=== PATIENT | male | born 1960 | race Caucasian/White ===

== ENCOUNTER → 2021-01-16 09:58 | Outpatient (BNVA) | payer MEDICARE, SELFPAY | PROVIDERS: PCP Family Medicine; Visit Provider Family Medicine | DX: E66.01 Morbid (severe) obesity due to excess calories (principal); M10.9 Gout, unspecified; I10 Essential (primary) hypertension; E11.628 Type 2 diabetes mellitus with other skin complications; L08.9 Local infection of the skin and subcutaneous tissue, unspecified; E11.621 Type 2 diabetes mellitus with foot ulcer; L97.509 Non-pressure chronic ulcer of other part of unspecified foot with unspecified severity; Z98.890 Other specified postprocedural states; Z87.19 Personal history of other diseases of the digestive system; Z98.84 Bariatric surgery status; M19.90 Unspecified osteoarthritis, unspecified site; E11.622 Type 2 diabetes mellitus with other skin ulcer; L97.909 Non-pressure chronic ulcer of unspecified part of unspecified lower leg with unspecified severity; E11.40 Type 2 diabetes mellitus with diabetic neuropathy, unspecified; Z79.4 Long term (current) use of insulin | CPT/HCPCS: 80053; 80061; 83036; 84443; 85025 ==

== ENCOUNTER 2021-02-28 14:54 | Outpatient (CLI) | payer MEDICARE, SELFPAY ==
--- NOTE | 2021-02-28 15:00 | USCV_ITS ---
MarciJuan Age: 61 Gender: M : 1960 Exam Date: 02/28/2021 15:13 Ordering Phys: Wali Castillo DO Technologist: Jacob Nielson Exam Location: [facility] [place] Indication: RT ARM PAIN AND SWELLING HISTORY: Upper extremity pain. PROCEDURES: Venous duplex imaging was performed in only the right upper extremity. The following venous structures were evaluated: internal jugular vein, subclavian vein, axillary vein, and brachial veins. In addition, the basilic vein, cephalic vein, radial vein, and ulnar vein. FINDINGS: No evidence of deep vein thrombosis or superficial thrombophlebitis in the right upper extremity. CONCLUSIONS No evidence of thrombus of the right upper extremity veins. Vince Genao MD (Electronically Signed) Final Date: 28 February 2021 17:06 S
== END 2021-02-28 14:55 | disposition home or self-care (01) ==
LOC: RAD 14:59
PROVIDERS: PCP Family Medicine; Visit Provider Family Medicine
DX: M79.89 Other specified soft tissue disorders (principal); L53.9 Erythematous condition, unspecified; M79.601 Pain in right arm
CPT/HCPCS: 93971

== ENCOUNTER → 2021-04-17 08:54 | Outpatient (BNVA) | payer MEDICARE, SELFPAY | PROVIDERS: PCP Family Medicine; Visit Provider Family Medicine | DX: E11.9 Type 2 diabetes mellitus without complications (principal); Z79.4 Long term (current) use of insulin | CPT/HCPCS: 83036 ==

== ENCOUNTER 2021-04-30 14:29 | Inpatient (IN) | payer MEDICARE, SELFPAY ==
[2021-04-30] VITALS (35 sets, daily range): BP systolic 105–161; BP diastolic 69–116; PULSE 77–153; RESP 13–28; TEMP 36.8–37.2; O2SAT 87–99; BMI 54.9; BMI 53.6
--- NOTE | 2021-04-30 14:55 | ED_ITS ---
HPI - Arrhythmia/Palpitations General: Chief Complaint: Arrhythmia/Palpitations Stated Complaint: AFIB, Swelling, sent by Jonathan Time Seen by Provider: 04/30/21 14:54 History of Present Illness: HPI narrative: 61-year-old male with history of diabetes and previous DVT who is no longer on anticoagulation presents with tachycardia and shortness of breath. States over the last 2 weeks he had increasing shortness of breath orthopnea and lower extremity swelling bilaterally. Denies any focal pain. Denies chest pain. Denies previous history of A. fib but today was in clinic and found to be in A. fib with RVR so sent to the ER. Review of Systems Narrative: - CONSTITUTIONAL: Denies weight loss, fever and chills. - HEENT: Denies changes in vision and hearing. - RESPIRATORY: As above - CV: As above - GI: Denies abdominal pain, nausea, vomiting and diarrhea. - : Denies dysuria and urinary frequency. - MSK: Denies myalgia and joint pain. - SKIN: Denies rash and pruritus. - NEUROLOGICAL: Denies headache, weakness, numbness and syncope. - PSYCHIATRIC: Denies suicidal ideation PFSH ED PFSH: Medical History (Updated 04/30/21 @ 14:13 by Wali Castillo DO) Arthritis Diabetic neuropathy associated with type 2 diabetes mellitus Diabetic ulcer of lower leg associated with type 2 diabetes mellitus Type 2 diabetes mellitus without complication, with long-term current use of insulin Surgical History (Updated 01/16/21 @ 09:50 by Wali Castillo DO) H/O gastric bypass H/O hernia repair Family History Mother Diabetes Myasthenia gravis Sister Diabetes Father Diabetes Dementia Social History Smoking and tobacco status: never smoked Second hand smoke exposure: No Smoking risk assessment/counseling performed?: No Alcohol intake: current Alcohol intake frequency: few times a month Alcohol type: beer Desire information about alcohol rehabilitation?: No Desire information about substance/drug rehabilitation?: No Physical Exam Narrative: EXAM NARRATIVE: - GENERAL: Alert and oriented x 3. No acute distress. Well-nourished. - EYES: EOMI. Anicteric. - HENT: Atraumatic, no C-spine tenderness. Moist mucous membranes. No scleral icterus. No cervical lymphadenopathy. - LUNGS: Bilateral crackles - CARDIOVASCULAR: Irregular tachycardia, no murmur - ABDOMEN: Soft, non-tender and non-distended. Negative CVA tenderness bilaterally, no rebound or guarding, negative Thayer sign. No palpable masses. - EXTREMITIES: +2 bilateral lower extremity edema, otherwise neurovascularly intact. - SKIN: No rashes or lesions. Warm. - NEUROLOGIC: No meningismus or focal neurological deficits. CN II-XII grossly intact. - PSYCHIATRIC: Cooperative. Appropriate mood and affect. Course Vital Signs: Vital signs: Vital Signs Temperature 98.2 F 04/30/21 14:49 Pulse Rate 116 H 04/30/21 16:30 Respiratory Rate 19 H 04/30/21 16:30 Blood Pressure 136/101 04/30/21 16:30 Pulse Oximetry 96 04/30/21 16:30 MDM - Arrhythmia/Palpitations MDM Narrative: Medical decision making narrative: 61-year-old presents due to shortness of breath. Has lower extremity swelling. Also found to have new onset A. fib with RVR. EKG does not reveal any acute ischemic change. High- sensitivity troponin mildly elevated to 24 but repeat is not changing. Failed to improve with 2 boluses of diltiazem so started on diltiazem drip with improvement in heart rate. Also has elevated BNP and signs of volume overload. Lasix provided. D-dimer is elevated but due to body weight patient would not fit in CT scan or VQ scan or. His lower extremity swelling is bilateral and he denies lower extremity pain. He also denies any chest pain. Clinical picture is more consistent with CHF than PE. Discussed with hospitalist and at this time do not believe it would be appropriate to transfer patient to a facility with bariatric CT scanner. Remainder of lab work and imaging reviewed. Discussed with hospitalist and they agreed patient would benefit from admission. Patient admitted in stable condition. Further evaluation management per hospitalist team. Lab Data: Labs: Lab Results 04/30/21 04/30/21 04/30/21 15:35 15:35 15:35 WBC 5.7 10^3/uL 10^3/ uL (4.0-10.0) RBC 4.36 10^6/uL 10^6 /uL (4.1-5.3) Hgb 9.4 g/dL L g/dL (11.7-16.6) Hct 33.1 % L % (42.0-52.0) MCV 75.9 fl L fl (80-94) MCH 21.6 pg L pg (28.0-34.0) MCHC 28.4 g/dL L g/dL (30.0-36.0) RDW 15.7 % H % (12.1-15.1) Plt Count 251 10^3/cmm 10^3 /cmm (130-400) MPV 10.1 fL fL (7.4-10.4) Neut % (Auto) 58.9 % % Lymph % (Auto) 31.2 % % [place] % (Auto) 6.6 % % Eos % (Auto) 1.6 % % Baso % (Auto) 1.4 % % Neut # (Auto) 3.37 10^3/uL 10^3 /uL (1.8-7.7) Lymph # (Auto) 1.8 10^3/uL 10^3/ uL (0.8-4.8) [place] # (Auto) 0.4 10^3/uL 10^3/ uL (0.2-0.9) Eos # (Auto) 0.1 10^3/uL 10^3/ uL (0.0-0.8) Baso # (Auto) 0.1 10^3/uL 10^3/ uL (0.0-0.1) Nucleated RBC % (a uto) 0 % % Nucleated RBCs # 0.0 /100WBC /100W BC PT 13.60 SECONDS SEC ONDS (12.1-14.9) INR 1.01 (0.8-1.2) APTT 25.4 SECONDS SECO NDS (23.9-36.7) D-Dimer 1.23 ug/mIFEU H u g/mIFEU (0-0.59) Sodium 137 mmol/L mmol/L (136-145) Potassium 4.5 mmol/L mmol/L (3.5-5.1) Chloride 103 mmol/L mmol/L (98-107) Carbon Dioxide 22 mmol/L mmol/L (22-29) Anion Gap 16.5 (5-19) BUN 21 mg/dL mg/dL (8-23) Creatinine 1.3 mg/dL H mg/dL (0.7-1.2) GFR Calculation 55.9 mL/min L mL/ min (90-130) Glucose 207 mg/dL H mg/dL (65-115) Calculated Osmolal ity 293 mOsm/kg mOsm/ kg (285-295) Calcium 8.1 mg/dL L mg/dL (8.5-10.5) Total Bilirubin 0.2 mg/dL mg/dL (0.15-1.2) AST 21 U/L U/L (0-40) ALT 28 U/L U/L (0-41) Alkaline Phosphata se 110 IU/L IU/L (40-130) Troponin T Baselin e Troponin T 120 Min gloria Delta Troponin T NT-Pro-B Natriuret Pep 2568 pg/mL H pg/m L (0-125) Total Protein 5.8 g/dL L g/dL (6.6-8.7) Albumin 3.1 g/dL L g/dL (3.5-5.2) Globulin 2.7 g/dL g/dL (1.3-4.6) TSH 1.52 uIU/mL uIU/m L (0.27-4.20) Free T4 1.44 ng/dL ng/dL (0.82-1.77) 04/30/21 04/30/21 15:35 17:33 WBC RBC Hgb Hct MCV MCH MCHC RDW Plt Count MPV Neut % (Auto) Lymph % (Auto) [place] % (Auto) Eos % (Auto) Baso % (Auto) Neut # (Auto) Lymph # (Auto) [place] # (Auto) Eos # (Auto) Baso # (Auto) Nucleated RBC % (a uto) Nucleated RBCs # PT INR APTT D-Dimer Sodium Potassium Chloride Carbon Dioxide Anion Gap BUN Creatinine GFR Calculation Glucose Calculated Osmolal ity Calcium Total Bilirubin AST ALT Alkaline Phosphata se Troponin T Baselin e 24 ng/L H ng/L (0-15) Troponin T 120 Min gloria 24.21 ng/L H ng/L (0-15) Delta Troponin T 0.21 ABS# ABS# (0-10) NT-Pro-B Natriuret Pep Total Protein Albumin Globulin TSH Free T4 EKG Data^: EKG 1: Other EKG comments: Chest X-Ray 04/30/21 14:59 IMPRESSION: Mild cardiomegaly and calcified aorta. A. fib with RVR at a rate of 137, no sign of acute ischemia or other acute abnormality. Critical Care Time Critical Care Time: Critical Care Time: Yes Total Critical Care Time: 45 Attestation: This case had a high probability of a clinically significant, sudden, or life threatening deterioration of this patient's condition which required my full and direct attention, intervention and personal management. Discharge Plan Discharge Prescriptions: No Action amoxicillin-pot clavulanate [Augmentin] 875-125 mg tablet 1 tab PO BID Qty: 14 RF: 0 acetaminophen 500 mg Tablet 1,500 - 2,000 mg PO Q4H PRN (Reason: Pain) RF: 0 allopurinol 300 mg tablet 300 mg PO QAM RF: 0 Lantus Solostar U-100 Insulin 100 unit/mL (3 mL) insulin pen 15 unit SUBCUT BID RF: 0 Coding Level of Care Code ED Rn Gyn for Wing Anali
--- NOTE | 2021-04-30 14:59 | XR_ITS ---
WS: [id number] PORTABLE CHEST HISTORY: sob COMPARISON: None available. Lungs are clear and well expanded. No pleural effusion or pneumothorax. Cardiac size: Mildly enlarged cardiac silhouette. Mediastinum/Aorta: Mildly prominent RIGHT hilum. Suspect this is probably pulmonary artery which is s lightly prominent. No osseous abnormality seen. XR/XR chest 1V portable [id number] IMPRESSION: Mild cardiomegaly and calcified aorta.
[2021-04-30] MEDS: FUROsemide 10 mg/mL SDV 4mL 40 MG IVP (15:00)
--- NOTE | 2021-04-30 15:00 | ECG_ITS ---
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 Measurements Intervals Dennis Rate: 122 P: DE: QRS: -43 QRSD: 111 T: 89 QT: 319 QTc: 456 Interpretive Statements ATRIAL FIBRILLATION WITH RAPID VENTRICULAR RESPONSE LEFT AXIS DEVIATION [QRS AXIS < -30] ANTEROSEPTAL MYOCARDIAL INFARCTION , PROBABLY OLD [40+ ms Q WAVE IN V1-V4] Compared to ECG 04/30/2021 14:58:53 No significant changes Electronically Signed On 04-30-2021 20:14:47 TECHNOLOGY RISK INTERN by Roman Cason M.D. [id number]
[2021-04-30 15:44] LABS: Basophils # 0.1 10^3/uL (0.0-0.1); Basophils % 1.4 %; Eosinophils # 0.1 10^3/uL (0.0-0.8); Eosinophils % 1.6 %; Hematocrit 33.1 % (42.0-52.0); Hemoglobin 9.4 g/dL (11.7-16.6); Lymphocytes # 1.8 10^3/uL (0.8-4.8); Lymphocytes % 31.2 %; Mean Corpuscular HGB Conc 28.4 g/dL (30.0-36.0); Mean Corpuscular Hemoglobin 21.6 pg (28.0-34.0); Mean Corpuscular Volume 75.9 fl (80-94); Mean Platelet Volume 10.1 fL (7.4-10.4); Monocytes # 0.4 10^3/uL (0.2-0.9); Monocytes % 6.6 %; Neutrophils # 3.37 10^3/uL (1.8-7.7); Neutrophils % 58.9 %; Nucleated Red Blood Cells % 0 %; Platelet Count 251 10^3/cmm (130-400); Red Blood Count 4.36 10^6/uL (4.1-5.3); Red Cell Distribution Width 15.7 % (12.1-15.1); White Blood Count 5.7 10^3/uL (4.0-10.0)
[2021-04-30 15:57] LABS: INR 1.01 (0.8-1.2)
[2021-04-30 15:58] LABS: Partial Thromboplastin Time 25.4 SECONDS (23.9-36.7)
[2021-04-30 16:00] LABS: D Dimer 1.23 ug/mIFEU (0-0.59)
--- NOTE | 2021-04-30 16:08 | PC.PHAR ---
pt states he takes care of his own medications-pt states the dr told him not to use the novolog flexpen bhupinder has rx on hold-rx filled on 04/27/21 for lantus 10 units bid pt states it was increased to 15 units bid pt states today he used 30 units-notes are made in the pharmacy comments
[2021-04-30 16:09] LABS: Troponin(5th) Baseline 24 ng/L (0-15)
[2021-04-30 16:19] LABS: Alanine Aminotransferase 28 U/L (0-41); Albumin Level 3.1 g/dL (3.5-5.2); Alkaline Phosphatase 110 IU/L (40-130); Anion Gap 16.5 (5-19); Aspartate Amino Transferase 21 U/L (0-40); Blood Urea Nitrogen 21 mg/dL (8-23); Calcium 8.1 mg/dL (8.5-10.5); Carbon Dioxide 22 mmol/L (22-29); Chloride 103 mmol/L (98-107); Free T4 Free Thyroxine 1.44 ng/dL (0.82-1.77); Globulin 2.7 g/dL (1.3-4.6); Glomerular Filtration Rate 55.9 mL/min (90-130); Glucose 207 mg/dL (65-115); NT Pro B Type Natriuretic Pept 2568 pg/mL (0-125); Osmolality Calculated 293 mOsm/kg (285-295); Potassium 4.5 mmol/L (3.5-5.1); Sodium 137 mmol/L (136-145); Thyroid Stimulating Hormone 1.52 uIU/mL (0.27-4.20); Total Bilirubin 0.2 mg/dL (0.15-1.2); Total Protein 5.8 g/dL (6.6-8.7)
--- NOTE | 2021-04-30 17:00 | ECG_ITS ---
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 Measurements Intervals [place] Rate: 137 P: IN: QRS: -46 QRSD: 109 T: 89 QT: 296 QTc: 448 Interpretive Statements ATRIAL FIBRILLATION WITH RAPID VENTRICULAR RESPONSE LEFT AXIS DEVIATION [QRS AXIS < -30] POSSIBLE ANTERIOR MYOCARDIAL INFARCTION , OF INDETERMINATE AGE [30 ms Q WAVE IN V3/V4, OR R < 0.2 mV IN V4] No previous ECG available for comparison Electronically Signed On 04-30-2021 16:45:59 ORTHOPEDIC RN by Roman Cason M.D. [id number]
[2021-04-30 18:18] LABS: Troponin 5 2HR 24.21 ng/L (0-15); Troponin 5 2HR Delta 0.21 ABS# (0-10)
--- NOTE | 2021-04-30 19:43 | P.HP_ITS ---
Providers/Chief Complaint Primary Care Provider: Wali Castillo DO Chief Complaint: AFIB, Swelling, sent by Jonathan History of Present Illness Juan Covarrubias is a 61 year old male with past medical history of obesity, diabetes, osteoarthritis, DVT x2 who is presenting with complaints of increased lower extremity swelling and shortness of breath. The patient has chronic swelling in the legs. However, he reports that it got worse about 2 weeks ago. Reports associated redness. Denies pain or wounds. The shortness of breath started about 3 to 4 days ago and got worse. It is mild to moderate in intensity, constant, but worsens with activities. He uses 3 pillows to sleep. No PND. He reports some substernal chest discomfort but no pain. Denies any palpitations. [place] a little dizzy earlier but it has resolved. Denies any prior history of congestive heart failure or heart attacks. On one occasion he was told that he had irregular heartbeats. He has history of DVT in the past for which he took warfarin for short period of time. Denies any bleeding problems. He denies any history of strokes. No fever or chills. No cough. No diarrhea. He denies similar problems in the past. Review of Systems General: Reports: 10 or more systems reviewed and unremarkable except in HPI and below Medications/Allergies Home Medications Medication Instructions Recorded Confirmed Last Taken Type amoxicillin 875 mg-potassium 1 tab PO BID #14 tab 04/24/21 04/30/21 04/30/21 06:00 Rx clavulanate 125 mg tablet acetaminophen 1,500 - 2,000 mg PO Q4H PRN 04/30/21 04/30/21 04/30/21 02:00 History allopurinol 300 mg PO QAM 04/30/21 04/30/21 04/30/21 History insulin glargine [Lantus Solostar 15 unit SUBCUT BID 04/30/21 04/30/21 04/30/21 06:00 History U-100 Insulin] 30 units Allergies Allergy/AdvReac Type Severity Reaction Status Date / Time morphine Allergy ADR-Vomitin Verified 04/17/21 08:08 g Opioids - Morphine Analogues Allergy Unknown Verified 04/30/21 16:12 Opioids-Meperidine and Allergy Unknown Verified 04/30/21 16:12 Related Opioids-Methadone and Related Allergy Unknown Verified 04/30/21 16:12 peanut Allergy Unknown Verified 04/17/21 08:08 PFSH Acute PFSH: Medical History (Updated 04/30/21 @ 19:49 by Christopher Bentley) Arthritis Diabetic neuropathy associated with type 2 diabetes mellitus Diabetic ulcer of lower leg associated with type 2 diabetes mellitus Type 2 diabetes mellitus without complication, with long-term current use of insulin Surgical History (Updated 01/16/21 @ 09:50 by Wali Castillo DO) H/O gastric bypass H/O hernia repair Family History Mother Diabetes Myasthenia gravis Sister Diabetes Father Diabetes Dementia Social History Smoking and tobacco status: never smoked Second hand smoke exposure: No Smoking risk assessment/counseling performed?: No Alcohol intake: current Alcohol intake frequency: few times a month Alcohol type: beer Desire information about alcohol rehabilitation?: No Desire information about substance/drug rehabilitation?: No Vitals/I&O/Wt Last Vital Signs Temp 98.2 F 04/30/21 14:49 Pulse 116 H 04/30/21 16:30 Resp 19 H 04/30/21 16:30 BP 136/101 04/30/21 16:30 Pulse Ox 96 04/30/21 16:30 04/30/21 04/30/21 04/30/21 06:59 14:59 22:59 Intake Total 3.167 / 3.167 Balance 3.167 / 3.167 Weight last 48 hrs Weight 221.353 kg Physical Exam Narrative: EXAM NARRATIVE: Currently the patient is awake alert and oriented. No acute distress. Mood and affect are appropriate. Responses are adequate. Skin is warm and dry. Muscle commands Neck supple. No JVD Lungs are clear bilaterally. No wheeze or crackles. No respiratory distress Heart S1, S2, irregularly irregular. Abdomen is soft, nontender, bowel sounds are present Extremities 3+ pitting edema and chronic venous stasis changes. No calf tenderness or peripheral cyanosis. No focal deficits. Normal speech. Data : 04/30/21 15:35 04/30/21 15:35 Other Labs: Laboratory Results WBC 5.7 10^3/uL (4.0-10.0) 04/30/21 15:35 RBC 4.36 10^6/uL (4.1-5.3) 04/30/21 15:35 Hgb 9.4 g/dL (11.7-16.6) L 04/30/21 15:35 Hct 33.1 % (42.0-52.0) L 04/30/21 15:35 MCV 75.9 fl (80-94) L 04/30/21 15:35 MCH 21.6 pg (28.0-34.0) L 04/30/21 15:35 MCHC 28.4 g/dL (30.0-36.0) L 04/30/21 15:35 RDW 15.7 % (12.1-15.1) H 04/30/21 15:35 Plt Count 251 10^3/cmm (130-400) 04/30/21 15:35 MPV 10.1 fL (7.4-10.4) 04/30/21 15:35 Neut % (Auto) 58.9 % 04/30/21 15:35 Lymph % (Auto) 31.2 % 04/30/21 15:35 [place] % (Auto) 6.6 % 04/30/21 15:35 Eos % (Auto) 1.6 % 04/30/21 15:35 Baso % (Auto) 1.4 % 04/30/21 15:35 Neut # (Auto) 3.37 10^3/uL (1.8-7.7) 04/30/21 15:35 Lymph # (Auto) 1.8 10^3/uL (0.8-4.8) 04/30/21 15:35 [place] # (Auto) 0.4 10^3/uL (0.2-0.9) 04/30/21 15:35 Eos # (Auto) 0.1 10^3/uL (0.0-0.8) 04/30/21 15:35 Baso # (Auto) 0.1 10^3/uL (0.0-0.1) 04/30/21 15:35 Nucleated RBC % (auto) 0 % 04/30/21 15:35 Nucleated RBCs # 0.0 /100WBC 04/30/21 15:35 PT 13.60 SECONDS (12.1-14.9) 11/08/21 15:35 INR 1.01 (0.8-1.2) 04/30/21 15:35 APTT 25.4 SECONDS (23.9-36.7) 04/30/21 15:35 D-Dimer 1.23 ug/mIFEU (0-0.59) H 04/30/21 15:35 Sodium 137 mmol/L (136-145) 04/30/21 15:35 Potassium 4.5 mmol/L (3.5-5.1) 04/30/21 15:35 Chloride 103 mmol/L (98-107) 04/30/21 15:35 Carbon Dioxide 22 mmol/L (22-29) 04/30/21 15:35 Anion Gap 16.5 (5-19) 04/30/21 15:35 BUN 21 mg/dL (8-23) 04/30/21 15:35 Creatinine 1.3 mg/dL (0.7-1.2) H 04/30/21 15:35 GFR Calculation 55.9 mL/min (90-130) L 04/30/21 15:35 Glucose 207 mg/dL (65-115) H 04/30/21 15:35 Calculated Osmolality 293 mOsm/kg (285-295) 04/30/21 15:35 Calcium 8.1 mg/dL (8.5-10.5) L 04/30/21 15:35 Total Bilirubin 0.2 mg/dL (0.15-1.2) 04/30/21 15:35 AST 21 U/L (0-40) 04/30/21 15:35 ALT 28 U/L (0-41) 04/30/21 15:35 Alkaline Phosphatase 110 IU/L (40-130) 04/30/21 15:35 Troponin T Baseline 24 ng/L (0-15) H 04/30/21 15:35 Troponin T 120 Minute 24.21 ng/L (0-15) H 04/30/21 17:33 Delta Troponin T 0.21 ABS# (0-10) 04/30/21 17:33 NT-Pro-B Natriuret Pep 2568 pg/mL (0-125) H 04/30/21 15:35 Total Protein 5.8 g/dL (6.6-8.7) L 04/30/21 15:35 Albumin 3.1 g/dL (3.5-5.2) L 04/30/21 15:35 Globulin 2.7 g/dL (1.3-4.6) 04/30/21 15:35 TSH 1.52 uIU/mL (0.27-4.20) 04/30/21 15:35 Free T4 1.44 ng/dL (0.82-1.77) 04/30/21 15:35 Impressions Chest X-Ray 04/30/21 14:59 IMPRESSION: Mild cardiomegaly and calcified aorta. A&P Assessment and plan (1) Atrial fibrillation with RVR: Status: Acute (2) CHF (congestive heart failure): Status: Acute (3) Type 2 diabetes mellitus without complication, with long-term current use of insulin: Status: Acute (4) Anemia: Status: Acute Additional A&P Information 61-year-old male with past medical history of diabetes, obesity, DVT who is presenting with complaints of shortness of breath, chest discomfort, peripheral swelling. A. fib with RVR. He received 2 boluses of diltiazem and currently on diltiazem drip. Heart rate has improved. He will go to the stepdown unit. Will continue diltiazem drip. We will start him on Eliquis for stroke prophylaxis. His chads 2 score can be as high as 4. It might change after echo evaluation. This was discussed with the patient and he agreed with the plan of care. Suspected congestive heart failure. Elevated BNP shortness of breath and swelling. Will order to the echo. We will start him on furosemide. Mild acute kidney injury could be secondary to #1. Will monitor. Will avoid nephrotoxic medications. Anemia. Could be dilutional due to fluid retention or secondary to chronic disease. We will continue monitoring. No evidence of active bleeding. Additional testing might be needed. History of DVT. Swollen and hyperemic lower extremities. Elevated D-dimer. Will order Doppler ultrasound of the lower extremities. He will be covered with Eliquis. Hypertension. The patient has borderline hypertension. Currently hypotensive. Will order as needed labetalol. Diabetes. We will continue his home Lantus. We will add insulin sliding scale. CODE STATUS. He wants to be full code. The plan of care was discussed with the patient. He verbalized understanding and agreement Attestations Medical Necessity Statement*: I expect that the patient will spend more than 2 midnights in the hospital considering his current findings and need for ever tional testing and management. Coding Level of Care Code Acute Entertainment Director for Bebe Briones Diagnoses Atrial fibrillation with RVR I48.91 CHF (congestive heart failure) I50.9 Type 2 diabetes mellitus without complication, with long-term current use of insulin E11.9; Z79.4 Anemia D64.9
[2021-04-30 20:27] LABS: SARS Covid-2 Antigen Negative (Negative)
--- NOTE | 2021-04-30 21:18 | PC.NURSE ---
urine output 2400 ml
[2021-04-30] MEDS: metoprolol tartrate 1 mg/1 mL SDV 5 mL 5 MG IVP (21:57)
[2021-04-30 22:08] LABS: Troponin 5 6HR 24.59 ng/L (0-15); Troponin 5 6HR Delta 0.59 ng/L (0-12)
[2021-04-30] MEDS: insulin lispro 100 unit/1 mL SUBCUT (22:17)
[2021-04-30 22:19] LABS: Glucose Point of Care 182 mg/dL (70-110)
[2021-05-01] VITALS (98 sets, daily range): BP systolic 109–174; BP diastolic 51–122; PULSE 79–130; RESP 12–26; TEMP 36.7–37.3; O2SAT 89–98
[2021-05-01] MEDS: FUROsemide 10 mg/mL SDV 4mL 40 MG IVP ×2 (03:51→15:06)
[2021-05-01 05:17] LABS: Basophils # 0.1 10^3/uL (0.0-0.1); Eosinophils # 0.1 10^3/uL (0.0-0.8); Eosinophils % 1.4 %; Hematocrit 31.8 % (42.0-52.0); Hemoglobin 9.1 g/dL (11.7-16.6); Lymphocytes # 2.1 10^3/uL (0.8-4.8); Lymphocytes % 41.8 %; Mean Corpuscular HGB Conc 28.6 g/dL (30.0-36.0); Mean Corpuscular Hemoglobin 21.1 pg (28.0-34.0); Mean Corpuscular Volume 73.8 fl (80-94); Mean Platelet Volume 10.2 fL (7.4-10.4); Monocytes # 0.5 10^3/uL (0.2-0.9); Monocytes % 9.2 %; Neutrophils # 2.32 10^3/uL (1.8-7.7); Neutrophils % 46.4 %; Nucleated Red Blood Cells % 0 %; Platelet Count 244 10^3/cmm (130-400); Red Blood Count 4.31 10^6/uL (4.1-5.3); Red Cell Distribution Width 15.7 % (12.1-15.1)
[2021-05-01 05:40] LABS: Anion Gap 14.8 (5-19); Blood Urea Nitrogen 20 mg/dL (8-23); Calcium 8.4 mg/dL (8.5-10.5); Carbon Dioxide 26 mmol/L (22-29); Chloride 104 mmol/L (98-107); Glomerular Filtration Rate 75.7 mL/min (90-130); Glucose 97 mg/dL (65-115); Osmolality Calculated 295 mOsm/kg (285-295); Phosphorus 3.8 mg/dL (2.5-4.5); Potassium 3.8 mmol/L (3.5-5.1); Sodium 141 mmol/L (136-145)
[2021-05-01 05:51] LABS: Cholesterol 124 mg/dL (0-200); HDL Cholesterol 54 mg/dL (60-100); LDL Cholesterol Calculated 55 mg/dL (50-129); LDL HDL Ratio 1.02 RATIO (0.00-3.22); NT Pro B Type Natriuretic Pept 2346 pg/mL (0-125); Triglycerides 77 mg/dL (0-150)
[2021-05-01 06:23] LABS: Estmated Average Glucose 220; Hemoglobin A1C 9.3 % (4.0-6.0)
[2021-05-01 07:43] LABS: Glucose Point of Care 100 mg/dL (70-110)
[2021-05-01] MEDS: dilTIAZem 30 mg Tablet PO ×2 (07:43→09:06)
--- NOTE | 2021-05-01 08:14 | PC.NURSE ---
recd. a/o. breakfast in. refy
[2021-05-01] MEDS: apixaban 5 mg Tablet PO ×2 (09:06→19:06)
[2021-05-01] MEDS: aspirin 81 mg EC Tablet PO (09:06)
[2021-05-01] MEDS: insulin glargine 100 units/1 mL 15 UNIT SUBCUT ×2 (09:07→19:06)
--- NOTE | 2021-05-01 11:05 | PC.NURSE ---
pt. refused p.t. keeps saying, dont worry about it i am tajik
--- NOTE | 2021-05-01 13:19 | PM.PN ---
Subjective Subjective: Interval history: Seen and examined patient has new onset of A. fib RVR with CHF exacerbation, new onset CHF, because of his BMI we cannot get CTA or VQ scan hence started on Eliquis secondary to high D-dimer patient does not smoke or drink alcohol, has recently moved from [place] about 6 months ago Cardizem drip was running at 10 asked nurse to decrease it to 5 and turned off at 10 AM at 7 AM I have started 60 mg of Cardizem p.o. every 6hr along metoprolol Ej Fraction,50-55% :Acute Superficial thrombophlebitis right GSV from ankle to Jam's canal. No DVT , bilateral. Vitals/I&O/Wt Last Vital Signs Temp 98.1 F 05/01/21 09:15 Pulse 104 H 05/01/21 09:15 Resp 21 H 05/01/21 09:15 BP 136/77 05/01/21 09:15 Pulse Ox 97 05/01/21 09:15 04/30/21 05/01/21 05/01/21 22:59 06:59 14:59 Intake Total 9.167 / 9.167 365.833 / 375.000 206.5 / 206.5 Output Total 350 / 350 2325 / 2675 1250 / 1250 Balance -340.833 / -340.833 -1959.167 / -2300.000 -1043.5 / -1043.5 Weight last 48 hrs Weight 215.955 kg Weight 221.353 kg Physical Exam Narrative: EXAM NARRATIVE: A. fib RVR heart rate between 95-1 10 Patient is not expensing chest pain or shortness of breath CHF exacerbation Extremity edema with venous is dermatitis No active cellulitis Right knee surgery score Abdomen distended with obesity No signs of tenderness or peritonitis EOMI, PERRLA nonfocal neuro exam Saturating well on room air No audible stridor or wheezing Data : 05/01/21 04:24 05/01/21 04:24 A&P Assessment and plan (1) Anemia: Status: Acute (2) CHF (congestive heart failure): Status: Acute (3) Orthopnea: Status: Acute (4) Atrial fibrillation with RVR: Status: Acute (5) Localized swelling of right upper extremity: Status: Acute (6) Dependent edema: Status: Acute (7) Type 2 diabetes mellitus without complication, with long-term current use of insulin: Status: Acute (8) Diabetic neuropathy associated with type 2 diabetes mellitus: Status: Acute (9) Morbid obesity: Status: Acute (10) Peripheral vascular disease due to secondary diabetes: Status: Acute (11) White coat syndrome with hypertension: Status: Acute (12) Type II diabetes mellitus with foot ulcer: Status: Acute Additional A&P Information Acute CHF exacerbation secondary to tachyarrhythmia Preserved ejection fraction heart failure exacerbation A. fib RVR TSH normal Potassium magnesium normal This most likely related to underlying sleep apnea he will need outpatient sleep study and wound care clinic for diabetic ulcer He does have venous stasis dermatitis No active signs of cellulitis For A. fib RVR started Cardizem 60 mg every 6 hours Cardizem drip turned off at 10 AM Started Eliquis for [id number] of 4 Full code Consistent carb diet Eliquis will suffice DVT prophylaxis Superficial thrombophlebitis Attestations Medical Necessity Statement*: DC TOMORROW Time Spent in Patient Care: less than 15 minutes Coding Level of Care Code Acute Medicine And Health Service Manager for Chg Fwd Diagnoses Anemia D64.9 CHF (congestive heart failure) I50.9 Orthopnea R06.01 Atrial fibrillation with RVR I48.91 Localized swelling of right upper extremity R22.31 Dependent edema R60.9 Type 2 diabetes mellitus without complication, with long-term current use of insulin E11.9; Z79.4 Diabetic neuropathy associated with type 2 diabetes mellitus E11.40 Morbid obesity E66.01 Peripheral vascular disease due to secondary diabetes E13.51 White coat syndrome with hypertension I10 Type II diabetes mellitus with foot ulcer E11.621; L97.509
[2021-05-01] MEDS: dilTIAZem 60 mg Tablet PO ×2 (13:55→19:52)
--- NOTE | 2021-05-01 14:03 | PC.NURSE ---
resting quietly watching t.v. h.r up to 120s. will monitor
--- NOTE | 2021-05-01 16:26 | PC.NURSE ---
heart rate increased prior to lasix.
[2021-05-01 17:22] LABS: Glucose Point of Care 93 mg/dL (70-110)
[2021-05-01 17:25] LABS: Glucose Point of Care 118 mg/dL (70-110)
[2021-05-01 19:49] LABS: Glucose Point of Care 118 mg/dL (70-110)
[2021-05-01 20:53] LABS: Glucose Point of Care 113 mg/dL (70-110)
--- NOTE | 2021-05-01 21:31 | USCV_ITS ---
Juan Covarrubias Age: 61 Gender: M : 1960 Exam Date: 05/01/2021 05:31 Ordering Phys: Christopher Bentley MD Technologist: Naa An Exam Location: [facility] [place] Indication: CHF BP: 126 / 89 HR: 102 Rhythm: Atrial fibrillation Technical Quality: Adequate MEASUREMENTS (Male / Female) Normal Values 2D ECHO LV Diastolic Diameter PLAX 4.6 cm 4.2 - 5.9 / 3.9 - 5.3 cm LV Systolic Diameter PLAX 3.2 cm LV Chamber Size 4.5 cm IVS Diastolic Thickness 1.1 cm 0.6 - 1.0 / 0.6 - 0.9 cm IVS Systolic Thickness 1.9 cm LVPW Diastolic Thickness 1.7 cm 0.6 - 1.0 / 0.6 - 0.9 cm LVPW Systolic Thickness 2.0 cm RV Chamber Size 4.2 cm LVOT Diameter 2.0 cm LV Ejection Fraction 2D Teich 57.9 % LV Ejection Fraction MOD 2C 73.6 % LV Ejection Fraction 2C AL 73.6 % LA Diameter 4.0 cm LA Width 4.2 cm LA Height 5.2 cm RA Width 4.2 cm RA Height 5.4 cm Aorta at Sinotubular Diameter 3.3 cm M-MODE Aortic Annulus Diameter 4.3 cm LA Ao Ratio MM 0.9 MV E Point Septal Separation 0.8 cm DOPPLER AV Peak Velocity 157.0 cm/s LVOT Peak Velocity 77.0 cm/s AV Area Cont Eq vti 1.6 cm squared AV Area Cont Eq pk 1.5 cm squared MV Area PHT 5.0 cm squared MV E' Velocity 79.0 cm/s Mitral E to MV E' Ratio 17.1 Mitral E to LV E' Lateral Ratio 17.1 Mitral E to LV E' Septal Ratio 17.1 TR Peak Velocity 230.0 cm/s TR Peak Gradient 21.2 mmHg TR Mean Velocity 174.4 cm/s TR Mean Gradient 13.8 mmHg TR Velocity Time Integral 58.1 cm TV Peak E Velocity 77.0 cm/s Right Atrial Pressure 5.0 mmHg Pulmonary Artery Systolic Pressu 26.2 mmHg PV Peak Velocity 73.0 cm/s RV Acceleration Time 0.1 s RV Ejection Time 0.3 s RV AcT/ET 0.4 FINDINGS Left Ventricle Relative hypokinesia of the septum. Normal LV size. LV ejection fraction around 50 to 55%( visual). Right Ventricle The right ventricle is normal in size and function. Right Atrium The right atrium is normal in size. Left Atrium The left atrium is normal in size. Mitral Valve Thickened mitral valve. Aortic Valve No gross abnormalities noted Tricuspid Valve No gross abnormalities noted Pulmonic Valve No gross abnormalities noted.trace pulmonary valve regurgitation. Pericardium Normal pericardium without effusion. Aorta Normal ascending aorta dimension. CONCLUSIONS Normal LV size. LV ejection fraction around 50 to 55%( visual). Wall motion of normality as mentioned above. Trace pulmonary valve regurgitation. Thickened mitral valve. There is no pericardial effusion. Technically difficult study because of the poor ultrasonic window. Dr Kira Vera MD [facility] (Electronically Signed) Final Date: 01 May 2021 07:41 S
--- NOTE | 2021-05-01 21:31 | USCV_ITS ---
Juan Covarrubias Age: 61 Gender: M : 1960 Exam Date: 05/01/2021 05:55 Ordering Phys: Christopher Bentley MD Technologist: Naa An [place] [facility] [place]: VERY SWOLLEN LEGS. ONSET OF CHF HISTORY: History of DVT bilateral pop veins. Bilateral leg swelling. PROCEDURES: Comparison: none available. The venous duplex Doppler examination of both lower extremities was performed in the standard fashion. The following venous structures were evaluated: common femoral vein, profunda vein, proximal portion of the greater saphenous vein, superficial femoral vein, and the popliteal vein. In addition, the posterior tibial and peroneal trunk were evaluated. Serial compression, augmentation maneuvers, and spectral Doppler flow evaluation were performed. FINDINGS: RT GSV proximal has debris. RT GSV HC, below knee and at ankle have clot. RT deep veins grossly neg. Lt deep veins and superfical appear free of thrombus. TDS CONCLUSIONS Technically difficult exam. Acute Superficial thrombophlebitis right GSV from ankle to Jam's canal. No DVT , bilateral. Dr. Leanna Castillo DO (Electronically Signed) Final Date: 01 May 2021 07:27 S
[2021-05-02] VITALS (54 sets, daily range): BP systolic 118–174; BP diastolic 66–112; PULSE 80–143; RESP 10–34; TEMP 36.6–37.1; O2SAT 90–97
[2021-05-02] MEDS: dilTIAZem 60 mg Tablet PO ×3 (02:14→13:07)
[2021-05-02] MEDS: FUROsemide 10 mg/mL SDV 4mL 40 MG IVP (04:36)
[2021-05-02 06:56] LABS: Anion Gap 11.8 (5-19); Blood Urea Nitrogen 14 mg/dL (8-23); Calcium 8.2 mg/dL (8.5-10.5); Carbon Dioxide 28 mmol/L (22-29); Chloride 102 mmol/L (98-107); Glucose 85 mg/dL (65-115); Osmolality Calculated 286 mOsm/kg (285-295); Potassium 3.8 mmol/L (3.5-5.1); Sodium 138 mmol/L (136-145)
[2021-05-02 07:32] LABS: Glucose Point of Care 87 mg/dL (70-110)
[2021-05-02] MEDS: aspirin 81 mg EC Tablet PO (08:09)
[2021-05-02] MEDS: apixaban 5 mg Tablet PO (08:09)
[2021-05-02] MEDS: insulin glargine 100 units/1 mL 15 UNIT SUBCUT (08:11)
--- NOTE | 2021-05-02 10:30 | PC.CHAP ---
Pastoral Care Encounter/Spiritual Assessment Type of Contact [] Declined voice systems engineer visit [] Patient/Family/Request visit [] Outpatient visit [] Follow-up visit [] Physician referral [] Code/Alert [x] Routine visit [] Staff referral [] Actively dying [] Patient sleeping [] Family support [] [] Out of room [] Palliative care [] [] Receiving care in room [] Pre-surgical visit [] Trauma [] Long length of stay [x] ICU visit [] Other: Relational/Emotional Strength [] Patient feels connected with others/family/visitors/staff [] Distress [] Loneliness/isolation [] Abandonment Spirituality of Patient [] Person of Amy [] Attends Judaism of their Amy [] Believes in Prayer [] Reads Bible or Holiness materials [] There are Spiritual issues to be addressed Program Director/Traffic Director Interventions [x] Prayer [x] Active listening [x] Non-anxious presence [x] Spiritual/emotional support [] Crisis/trauma care [] Spiritual counseling [] Bereavement support [] Provided bereavement packet [] Provided Bible/devotional materials [] Provided toy/stuffed animal, coloring book to patient or family member [] Provided Communion [] Anointing/[place] [] Salvation [x] Completed spiritual assessment [] Other: Impact on Illness or Injury [] Angry [] Fearful [] Anxious [] Often cries [] Exhaustion [] Unable to work [] Unable to attend yazdanism [] Unable to walk/stand [] Unable to read [] Unable to drive [] Unable to eat/drink [] Unable to sleep [] Unable to be with family [] Patient intubated [] Other: Summary patient feeling so much better, excited about being discharged.. going home Time spent with patient 5 min
[2021-05-02] MEDS: metoprolol tartrate 25 mg Tablet PO (11:03)
--- NOTE | 2021-05-02 11:49 | PM.DCS ---
Discharge Providers Date of Admission: 04/30/21 19:17 Date of Discharge: May 02, 2021 Attending Provider at Admission: Christopher Bentley Attending Provider at Discharge: Yolie Gamino MD Primary Care Provider: Wali Castillo DO Diagnoses at Discharge Discharge Diagnosis (1) Anemia: Status: Acute (2) CHF (congestive heart failure): Status: Acute (3) Orthopnea: Status: Acute (4) Atrial fibrillation with RVR: Status: Acute (5) Localized swelling of right upper extremity: Status: Acute (6) Dependent edema: Status: Acute (7) Type 2 diabetes mellitus without complication, with long-term current use of insulin: Status: Acute (8) Diabetic neuropathy associated with type 2 diabetes mellitus: Status: Acute (9) Morbid obesity: Status: Acute (10) Peripheral vascular disease due to secondary diabetes: Status: Acute (11) White coat syndrome with hypertension: Status: Acute (12) Type II diabetes mellitus with foot ulcer: Status: Acute Reason for Visit Reason for Visit: AFIB, Swelling, sent by [facility] Hospital Course HPI as per Dr. Bentley Juan Covarrubias is a 61 year old male with past medical history of obesity, diabetes, osteoarthritis, DVT x2 who is presenting with complaints of increased lower extremity swelling and shortness of breath. The patient has chronic swelling in the legs. However, he reports that it got worse about 2 weeks ago. Reports associated redness. Denies pain or wounds. The shortness of breath started about 3 to 4 days ago and got worse. It is mild to moderate in intensity, constant, but worsens with activities. He uses 3 pillows to sleep. No PND. He reports some substernal chest discomfort but no pain. Denies any palpitations. Byron a little dizzy earlier but it has resolved. Denies any prior history of congestive heart failure or heart attacks. On one occasion he was told that he had irregular heartbeats. He has history of DVT in the past for which he took warfarin for short period of time. Denies any bleeding problems. He denies any history of strokes. No fever or chills. No cough. No diarrhea. He denies similar problems in the past. Course. Patient had new onset A. fib RVR with CHF exacerbation new onset CHF. Because of his BMI CTA and VQ scan was not able to be done. Patient was started on Eliquis secondary to high D-dimer. Also his [id number] is high so therefore he qualifies for Eliquis due to his atrial fibrillation. He was started on Cardizem 60 every 6. Ejection fraction 50 to 55%. Technically difficult study. 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 He was also diuresed with Lasix 40 IV twice daily. Patient has diuresed pretty well. Today on day of discharge patient's heart rate was elevated to 1 20-1 30 on ambulation. Case was discussed with Dr. Vera over the phone. Metoprolol 25 twice daily was added along with his Cardizem. Cardizem was converted to long-acting to 40 daily. Patient will leave here with a Holter monitor for 1 week as per instructions from Dr. Vera. He will also see Dr. Vera as an outpatient within 1 week. Patient was asymptomatic and agreed to the plan. I will send him home on Lasix 40 daily along with potassium 10 mEq daily. I will give him a repeat BMP in 2 days and then again in 1 week to keep an eye on the potassium. Also patient's hemoglobin was 9.4 on admission and 9 subsequently. There is no evidence of any acute bleeding. Patient was started on Eliquis. I did give him a repeat CBC prescription in 2 days and then again in 1 week to keep an eye on that. He will follow up with his primary care physician. Patient will also be given an outpatient sleep study to perform to rule out obstructive sleep apnea. He may benefit from CPAP Physical Exam Narrative: EXAM NARRATIVE: General: Alert oriented x3, patient seen sitting up in bed appearing very comfortable. On room air. HEENT: Normocephalic, atraumatic, EOMI, Cardio: Irregularly irregular rhythm, normal S1-S2, no murmurs rubs gallops, unable to assess JVD due to large body habitus. Respiratory: Overall diminished breath sounds bilaterally, no wheezes no rhonchi. No wheezes no rhonchi appreciated GI: Abdomen soft, nontender, nondistended, bowel sounds + Behavior: Appropriate and cooperative Extremities: Pulses 2+, no edema, no cyanosis, chronic venous stasis changes present bilateral lower extremities up to mid shins. Discharge Data Data Completed and Pending: Completed Studies During Hospitalization Category Date Time Status XR chest 1V rosa ble [id number] Stat Exams 04/30/21 14:59 [place] [id number] Urgent Ultrasound 05/01/21 21:31 Completed CV. echo complete * [id number] Routine Ultrasound 05/01/21 21:31 Completed Pending at discharge Category Date Time Status CA cardiac event monitor Routine Exams 05/02/21 11:26 Ordered Labs from last 24 hours 05/02/21 05/02/21 05/01/21 07:28 04:17 20:51 Sodium 138 Potassium 3.8 Chloride 102 Carbon Dioxide 28 Anion Gap 11.8 BUN 14 Creatinine 0.8 GFR Calculation 98.0 Glucose 85 POC Glucose 87 113 H Calculated Osmolal ity 286 Calcium 8.2 L 05/01/21 05/01/21 05/01/21 19:47 17:15 11:47 Sodium Potassium Chloride Carbon Dioxide Anion Gap BUN Creatinine GFR Calculation Glucose POC Glucose 118 H 118 H 93 Calculated Osmolal ity Calcium Vitals: Last Vital Signs Temp 98 F 05/02/21 10:00 Pulse 118 H 05/02/21 10:00 Resp 13 05/02/21 10:00 BP 140/70 05/02/21 10:00 Pulse Ox 91 05/02/21 10:00 Discharge Plan Discharge Patient Disposition: Home Condition: Stable Prescriptions: New metoprolol tartrate 25 mg Tablet 25 mg PO BID@0900,2100 30 Days Qty: 60 RF: 0 Eliquis 5 mg Tablet 5 mg PO BID 30 Days Qty: 60 RF: 2 Lasix 40 mg tablet 40 mg PO DAILY 30 Days Qty: 30 RF: 1 diltiazem HCl 240 mg capsule,extended release 24 hr 240 mg PO DAILY 30 Days Qty: 30 RF: 1 potassium chloride 10 mEq capsule, extended release 10 meq PO DAILY 30 Days Qty: 30 RF: 0 Continued Lantus Solostar U-100 Insulin 100 unit/mL (3 mL) insulin pen 15 unit SUBCUT BID RF: 0 Held allopurinol 300 mg tablet 300 mg PO QAM RF: 0 Hold Instructions: see PCP Discontinued amoxicillin-pot clavulanate [Augmentin] 875-125 mg tablet 1 tab PO BID Qty: 14 RF: 0 acetaminophen 500 mg Tablet 1,500 - 2,000 mg PO Q4H PRN (Reason: Pain) RF: 0 Discharge Orders: Discharge Order (Routine); Ordered 05/02/21 Ordered By: Yolie Hanny Other Ambulatory Orders: Basic Metabolic Panel (Routine) Timeframe: 2 Days Facility: [facility] - Location: Lab - Main Lab Ordered By: Yolie Hanny Basic Metabolic Panel (Routine) Timeframe: 1 Week Facility: [facility] - Location: Lab - Main Lab Ordered By: Yolie Hanny Complete Blood Count w/Auto (Routine) Timeframe: 2 Days Location: Determined by Patient Ordered By: Yolie Hanny Complete Blood Count w/Auto (Routine) Timeframe: 1 Week Location: Determined by Patient Ordered By: Yolie Hanny ECG holter monitor 24 hour (Routine) Timeframe: 1 Week Facility: [facility] - Location: [facility] Ordered By: Yolie Hanny Sleep Study W Sleep Stage (Routine) Timeframe: 1 Week Facility: [facility] - Location: [facility] Ordered By: Yolie Gamino Referrals: Wali Castillo, [Primary Care Provider] - 1 week (THIS APPOINTMENT SCHEDULED FOR April AT TIME OF 3:15 PM , YOU CAN HAVE YOUR LABS DRAWN AT CLINIC .OR HERE AT HOSPITAL WITH YOUR ORDERS FOR LAB .) Kira Vera MD [Physician] - 1 week (Follow up holter, afib, heart failure, sepum hypokinesis on echo. Discussed with Dr. Vera. He would like to see patient outpatient in 1 week THIS APPOINTMENT HAS BEEN SCHEDULED FOR FOLLOW UP . AT [facility] [phone] FOR THE FOLLOWING DATE OF FridayMAY 08, AT TIME OF 2:15 PM) Discharge Diet: Cardiac and Diabetic Discharge Activity: Resume usual activity and Increase activity as tolerated Patient Instructions: Type 2 Diabetes, Diabetes and Diet, Metoprolol (By mouth), Diltiazem (By mouth), Furosemide (By mouth) (Lasix), Potassium Chloride (By mouth), Apixaban (By mouth) (Eliquis), A-fib (Atrial Fibrillation) (DC), Basic Carbohydrate Counting (DC), Diabetic Foot Ulcers (DC), Sleep Study (GEN), CHF Stoplight, Opioid Safety Discharge Attestations Time Spent in Discharge Care*: greater than 30 min Quality Metrics Clinical Quality Measures During this hospital stay, did patient experience: None Coding Level of Care Code Acute Chg FW DC note Diagnoses Anemia D64.9 CHF (congestive heart failure) I50.9 Orthopnea R06.01 Atrial fibrillation with RVR I48.91 Localized swelling of right upper extremity R22.31 Dependent edema R60.9 Type 2 diabetes mellitus without complication, with long-term current use of insulin E11.9; Z79.4 Diabetic neuropathy associated with type 2 diabetes mellitus E11.40 Morbid obesity E66.01 Peripheral vascular disease due to secondary diabetes E13.51 White coat syndrome with hypertension I10 Type II diabetes mellitus with foot ulcer E11.621; L97.509
[2021-05-02 12:44] LABS: Glucose Point of Care 110 mg/dL (70-110)
--- NOTE | 2021-05-02 13:16 | PC.NURSE ---
0830: ambulated around unit. mary. well. heart rate in 130s-140s. denies chest pain or discomfort but states the back of his leg is sore, states he gets surface clots and he feels that is what it is, upon exam a small raised area noted.
--- NOTE | 2021-05-02 13:22 | PC.NURSE ---
1230: ambulated around unit again. mary. alverto h.r. 120s-130s. afib continues
--- NOTE | 2021-05-02 14:38 | PC.NURSE ---
d/c per wheel chair to e.r. pt. driving himself home. bhupinder pharm. brought meds up.
--- NOTE | 2021-06-05 17:43 | PC.SOCIAL ---
Peer to peer is needed to approve sleep study. Notified Dr Gamino and since it has been so long since she has seen patient she will let PCP decide if needed. Called and updated patient of this and notified Dr Castillo who is pcp and Ivana in [facility]. Patient was appreciative of the call.
== END 2021-05-02 14:25 | disposition home or self-care (01) | DRG 308 ==
LOC: ER 19:49 → ICU 20:20
PROVIDERS: Internal Medicine; Admitting Provider Internal Medicine; Emergency Provider Emergency Medicine; PCP Family Medicine; Visit Provider Internal Medicine
DX: I48.91 Unspecified atrial fibrillation (principal); I50.31 Acute diastolic (congestive) heart failure; Z68.43 Body mass index [BMI] 50.0-59.9, adult; N17.9 Acute kidney failure, unspecified; E11.40 Type 2 diabetes mellitus with diabetic neuropathy, unspecified; E11.51 Type 2 diabetes mellitus with diabetic peripheral angiopathy without gangrene; E11.621 Type 2 diabetes mellitus with foot ulcer; L97.529 Non-pressure chronic ulcer of other part of left foot with unspecified severity; Z86.718 Personal history of other venous thrombosis and embolism; M19.90 Unspecified osteoarthritis, unspecified site; Z98.84 Bariatric surgery status; I11.0 Hypertensive heart disease with heart failure; D64.9 Anemia, unspecified; E66.01 Morbid (severe) obesity due to excess calories; I80.01 Phlebitis and thrombophlebitis of superficial vessels of right lower extremity; G47.33 Obstructive sleep apnea (adult) (pediatric); Z79.4 Long term (current) use of insulin
CPT/HCPCS: 36415; 36416; 71045; 80048; 80053; 80061; 82962; 83036; 83735; 83880; 84100; 84439; 84443; 84484; 85025; 85378; 85610; 85730; 87426; 93005; 93271; 93306; 93970; 96372; 96374; 96375; 96376; 99285; J1815 ×2; J1940; J3490

== ENCOUNTER 2021-05-04 12:04 | Outpatient (CLI) | payer MEDICARE, SELFPAY ==
[2021-05-04 12:43] LABS: Basophils # 0.1 10^3/uL (0.0-0.1); Eosinophils # 0.1 10^3/uL (0.0-0.8); Eosinophils % 2.4 %; Hematocrit 36.1 % (42.0-52.0); Hemoglobin 10.3 g/dL (11.7-16.6); Lymphocytes # 2.1 10^3/uL (0.8-4.8); Lymphocytes % 35.8 %; Mean Corpuscular HGB Conc 28.5 g/dL (30.0-36.0); Mean Corpuscular Hemoglobin 21.1 pg (28.0-34.0); Mean Platelet Volume 10.1 fL (7.4-10.4); Monocytes # 0.6 10^3/uL (0.2-0.9); Monocytes % 9.5 %; Neutrophils # 3.01 10^3/uL (1.8-7.7); Neutrophils % 51.1 %; Nucleated Red Blood Cells % 0 %; Platelet Count 302 10^3/cmm (130-400); Red Blood Count 4.88 10^6/uL (4.1-5.3); Red Cell Distribution Width 15.9 % (12.1-15.1); White Blood Count 5.9 10^3/uL (4.0-10.0)
[2021-05-04 14:21] LABS: Anion Gap 17.3 (5-19); Blood Urea Nitrogen 22 mg/dL (8-23); Calcium 8.6 mg/dL (8.5-10.5); Carbon Dioxide 22 mmol/L (22-29); Chloride 101 mmol/L (98-107); Glomerular Filtration Rate 85.5 mL/min (90-130); Glucose 126 mg/dL (65-115); Osmolality Calculated 287 mOsm/kg (285-295); Potassium 4.3 mmol/L (3.5-5.1); Sodium 136 mmol/L (136-145)
== END 2021-05-04 12:05 | disposition home or self-care (01) ==
LOC: LAB 12:06
PROVIDERS: PCP Family Medicine; Visit Provider Internal Medicine
DX: D64.9 Anemia, unspecified (principal); E87.6 Hypokalemia
CPT/HCPCS: 36415; 80048; 85025

== ENCOUNTER → 2021-05-09 16:33 | Outpatient (BNVA) | payer MEDICARE, SELFPAY | PROVIDERS: PCP Family Medicine; Visit Provider Family Medicine | DX: D64.9 Anemia, unspecified (principal); E87.6 Hypokalemia | CPT/HCPCS: 80048; 85025 ==

== ENCOUNTER → 2021-05-15 14:13 | Outpatient (BNVA) | payer MEDICARE, SELFPAY | PROVIDERS: PCP Family Medicine; Visit Provider Family Medicine | DX: I50.33 Acute on chronic diastolic (congestive) heart failure (principal); R60.0 Localized edema | CPT/HCPCS: 80048 ==

== ENCOUNTER 2021-06-25 09:23 | Inpatient (IN) | payer MEDICARE, SELFPAY ==
--- NOTE | 2021-06-25 | XRR_ITS ---
[facility] Final Radiology Report Call: [phone] Name: DOC RODRIGUEZ Age: 61Years M Date: 06/25/2021 SSN: -- : 1960 Study: XR CHEST 1 VIEW Requesting Physician: BRITNEY DOMINGUEZ Images: 1 Add?l Studies: Provided Clinical History: CHF exacerbation, Afib-RVR, Fluid overload PROCEDURE INFORMATION: Exam: XR Chest Exam date and time: 06/25/2021 9:08 AM Age: 61 years old Clinical indication: Cardiovascular condition or disease; Congestive heart failure (chf); Cause unknown; Type unknown; Additional info: Chf exacerbation, afib-rvr, fluid overload TECHNIQUE: Imaging protocol: XR of the chest. Views: 1 view. COMPARISON: CR XR chest 1V portable [id number] 04/30/2021 3:07 PM FINDINGS: Lungs: There is mildly increased lung markings and hazy airspace opacities in a predominantly perihilar distribution, which in the setting of cardiomegaly suggestive of pulmonary congestion. Pneumonia should be excluded clinically. Pleural spaces: Unremarkable. No pleural effusion. No pneumothorax. Heart/Mediastinum: Stable cardiomediastinal silhouette. Bones/joints: Degenerative changes of the spine seen. IMPRESSION: Imaging findings of pulmonary congestion. Pneumonia should be excluded clinically. Thank you for allowing us to participate in the care of your patient. Dictated and Authenticated by: Xavier De MD 06/25/2021 11:47 AM Central Time ([place] & [place]) RAMIRO
[2021-06-25 09:28] VITALS: BP 121/68; PULSE 89; RESP 16; TEMP 36.7; O2SAT 95; BMI 53.6
--- NOTE | 2021-06-25 10:04 | ECG_ITS ---
[facility] Test Date: 2021-06-25 Pat Name: Juan Covarrubias Department: Room: Gender: Male Senior Credit Analyst: : 1960 Requested By: Marcus Yepez Order Number: [id number] [place] MD: Kira Vera M.D. Measurements Intervals [place] Rate: 103 P: IN: QRS: -43 QRSD: 113 T: 55 QT: 348 QTc: 457 Interpretive Statements ATRIAL FIBRILLATION WITH RAPID VENTRICULAR RESPONSE WITH ABERRANT CONDUCTION OR VENTRICULAR PREMATURE COMPLEXES LEFT AXIS DEVIATION [QRS AXIS < -30] POSSIBLE ANTERIOR MYOCARDIAL INFARCTION , PROBABLY OLD [30 ms Q WAVE IN V3/V4, OR R < 0.2 mV IN V4] Compared to ECG 04/30/2021 17:44:28 Ventricular premature complex(es) now present Aberrant conduction of supraventricular beat(s) now present Myocardial infarct finding still present Electronically Signed On 06-25-2021 20:52:47 DAY CARE DIRECTOR by Kira Vera M.D. [id number]
--- NOTE | 2021-06-25 10:17 | W.ED.SOB ---
HPI - SOB/Dyspnea General: Chief Complaint: ER Hold Stated Complaint: SOB/FLUID IN LEGS Time Seen by Provider: 06/25/21 09:24 History of Present Illness: HPI Narrative: 61-year-old male presents emergency room from his primary care doctor's office with complaints of orthopnea preceding shortness of breath with minimal exertion. Patient was in A. fib with RVR when he was in the doctor's office he had taken all of his medications this morning his heart rate is varying from the low 100s to 120 range here in the emergency room. He denies any chest pain. He did not take his Lasix this morning. His primary care doctor verbally reported to me he had about a 20 pound weight gain in the last week. He is on apixaban and Cardizem both of which she took this morning. MD elicited complaint: shortness of breath and cough Pertinent past history: congestive heart failure and other (Atrial fibrillation) Onset (ago): week(s) Context: occurred during exertion Timing: intermittent Severity: moderate Exacerbating factors: exertion Relieving factors: rest Known history of: other (Atrial fibrillation) Associated symptoms: Reports cough, dizziness, lightheadedness, orthopnea and palpitations; Deny chest congestion, chest pain, diaphoresis, extremity pain, fever(s), hemoptysis, myalgias, nausea, paresthesias, polydipsia, polyuria, rash, sense of impending doom, syncope or vomiting Treatment prior to arrival: oxygen Review of Systems Const: Denies: fever(s) or diaphoresis ENMT: Denies: throat pain, ear or mastoid pain, nasal discharge or nasal congestion Card: Reports: palpitations, lightheadedness and orthopnea; Denies: chest pain or syncope Resp: Denies: hemoptysis or chest congestion GI: Denies: nausea or vomiting : Denies: flank pain, dysuria, urinary frequency or urinary urgency Musc: Denies: extremity pain Skin/Breast: Denies: rash or pruritus Neuro: Reports: dizziness Endo: Denies: polyuria or polydipsia PFSH ED PFSH: Medical History Arthritis Diabetic neuropathy associated with type 2 diabetes mellitus Diabetic ulcer of lower leg associated with type 2 diabetes mellitus Gout Hx of fracture of leg Type 2 diabetes mellitus without complication, with long-term current use of insulin Surgical History H/O gastric bypass H/O hernia repair Hx of thumb surgery Family History Mother Diabetes Myasthenia gravis Sister Diabetes Father Diabetes Dementia CAD (coronary artery disease) early onset Stroke Denies family history of Clotting disorder Chronic kidney disease (CKD) Suicide Anesthesia complication Bleeding disorder Lung disease Cancer Social History Smoking and tobacco status: never smoked Second hand smoke exposure: No Smoking risk assessment/counseling performed?: No Alcohol intake: current Alcohol intake frequency: few times a month Alcohol type: beer Desire information about alcohol rehabilitation?: No Desire information about substance/drug rehabilitation?: No Physical Exam Const: GENERAL APPEARANCE: cooperative and comfortable ORIENTATION/CONSCIOUSNESS: Yes awake, Yes oriented to person, Yes oriented to place and Yes oriented to time HENMT: COMMON NORMALS: normocephalic, atraumatic, hearing grossly normal bilaterally and external ears normal HEAD & SCALP: normocephalic and atraumatic EXTERNAL EAR: Yes external ears normal Neck/C-Spine: COMMON NORMALS: no JVD Resp: COMMON NORMALS: normal respiratory effort, No retractions, No use of accessory muscles and clear to auscultation bilaterally AUSCULTATION: clear to auscultation bilaterally Cardio: COMMON NORMALS: no JVD, regular rate and No murmurs present (Cardio) RATE: regular rate RHYTHM: abnormal rhythm irregularly irregular GI: COMMON NORMALS: Soft to palpation and No hepatosplenomegaly present AUSCULTATION: Yes normoactive bowel sounds PALPATION: Yes Soft to palpation, No Tenderness to palpation present (GI), No Guarding due to palpation present (GI) and Yes No hepatosplenomegaly present Extremity: COMMON NORMALS: normal to inspection, capillary refill normal and no calf tenderness GENERAL: Yes edema Neuro: SENSORIUM/ORIENTATION: Yes oriented to person, Yes oriented to place and Yes oriented to time Skin: COMMON NORMALS: no rashes or lesions noted GENERAL SKIN EXAM: no rashes or lesions noted Course Vital Signs: Vital signs: Vital Signs Temperature 97.7 F 06/28/21 07:30 Pulse Rate 85 06/28/21 07:30 Respiratory Rate 16 06/28/21 07:30 Blood Pressure 123/71 06/28/21 07:30 Pulse Oximetry 94 06/28/21 07:30 MDM - SOB/Dyspnea MDM Narrative: Medical decision making narrative: Labs imaging and EKG reviewed. Patient in mild acute congestive heart failure he will need to be admitted for rate control and adjustments to manage his heart failure. Discussed with hospitalist -orders are written. Lab Data: Labs: Lab Results 06/25/21 06/25/21 06/25/21 10:39 10:39 10:39 WBC 5.2 10^3/uL 10^3/ uL (4.0-10.0) RBC 4.77 10^6/uL 10^6 /uL (4.1-5.3) Hgb 9.3 g/dL L g/dL (11.7-16.6) Hct 33.9 % L % (42.0-52.0) MCV 71.1 fl L fl (80-94) MCH 19.5 pg L pg (28.0-34.0) MCHC 27.4 g/dL L g/dL (30.0-36.0) RDW 17.5 % H % (12.1-15.1) Plt Count 229 10^3/cmm 10^3 /cmm (130-400) MPV 10.4 fL fL (7.4-10.4) Neut % (Auto) 67.3 % % Lymph % (Auto) 23.9 % % [place] % (Auto) 6.2 % % Eos % (Auto) 1.2 % % Baso % (Auto) 1.0 % % Neut # (Auto) 3.50 10^3/uL 10^3 /uL (1.8-7.7) Lymph # (Auto) 1.2 10^3/uL 10^3/ uL (0.8-4.8) [place] # (Auto) 0.3 10^3/uL 10^3/ uL (0.2-0.9) Eos # (Auto) 0.1 10^3/uL 10^3/ uL (0.0-0.8) Baso # (Auto) 0.1 10^3/uL 10^3/ uL (0.0-0.1) Nucleated RBC % (a uto) 0 % % Nucleated RBCs # 0.0 /100WBC /100W BC Sodium 140 mmol/L mmol/L (136-145) Potassium 5.1 mmol/L mmol/L (3.5-5.1) Chloride 103 mmol/L mmol/L (98-107) Carbon Dioxide 23 mmol/L mmol/L (22-29) Anion Gap 19.1 H (5-19) BUN 28 mg/dL H mg/dL (8-23) Creatinine 1.4 mg/dL H mg/dL (0.7-1.2) GFR Calculation 51.4 mL/min L mL/ min (90-130) Glucose 168 mg/dL H mg/dL (65-115) POC Glucose Calculated Osmolal ity 299 mOsm/kg H mOs m/kg (285-295) Calcium 8.1 mg/dL L mg/dL (8.5-10.5) Magnesium 2.1 mg/dL mg/dL (1.7-2.3) Total Bilirubin 0.5 mg/dL mg/dL (0.15-1.2) AST 20 U/L U/L (0-40) ALT 21 U/L U/L (0-41) Alkaline Phosphata se 118 IU/L IU/L (40-130) Creatine Kinase 142 U/L U/L (39-308) Troponin T Baselin e 27 ng/L H ng/L (0-15) Troponin T 120 Min [place] Troponin T Troponin T Hi Sens 6Hr Troponin T Hi Sens 6Hr Delta NT-Pro-B Natriuret Pep 2463 pg/mL H pg/m L (0-125) Total Protein 6.2 g/dL L g/dL (6.6-8.7) Albumin 3.6 g/dL g/dL (3.5-5.2) Globulin 2.6 g/dL g/dL (1.3-4.6) Ur Random Urea Nit rogn Urine Creatinine 06/25/21 06/25/21 06/25/21 12:43 14:59 14:59 WBC RBC Hgb Hct MCV MCH MCHC RDW Plt Count MPV Neut % (Auto) Lymph % (Auto) [place] % (Auto) Eos % (Auto) Baso % (Auto) Neut # (Auto) Lymph # (Auto) [place] # (Auto) Eos # (Auto) Baso # (Auto) Nucleated RBC % (a uto) Nucleated RBCs # Sodium Potassium Chloride Carbon Dioxide Anion Gap BUN Creatinine GFR Calculation Glucose POC Glucose Calculated Osmolal ity Calcium Magnesium Total Bilirubin AST ALT Alkaline Phosphata se Creatine Kinase Troponin T Baselin e Troponin T 120 Min [place] 26.06 ng/L H ng/L (0-15) Delta Troponin T -0.94 ABS# L ABS# (0-10) Troponin T Hi Sens 6Hr Troponin T Hi Sens 6Hr [place] NT-Pro-B Natriuret Pep Total Protein Albumin Globulin Ur Random Urea Nit rogn 218 mg/dL mg/dL Urine Creatinine 26 mg/dL L mg/dL (39-259) 06/25/21 06/26/21 06/26/21 16:56 05:47 07:15 WBC 4.8 10^3/uL 10^3/ uL (4.0-10.0) RBC 4.85 10^6/uL 10^6 /uL (4.1-5.3) Hgb 9.4 g/dL L g/dL (11.7-16.6) Hct 33.9 % L % (42.0-52.0) MCV 69.9 fl L fl (80-94) MCH 19.4 pg L pg (28.0-34.0) MCHC 27.7 g/dL L g/dL (30.0-36.0) RDW 17.6 % H % (12.1-15.1) Plt Count 253 10^3/cmm 10^3 /cmm (130-400) MPV 9.9 fL fL (7.4-10.4) Neut % (Auto) 50.2 % % Lymph % (Auto) 38.7 % % [place] % (Auto) 7.9 % % Eos % (Auto) 1.5 % % Baso % (Auto) 1.3 % % Neut # (Auto) 2.40 10^3/uL 10^3 /uL (1.8-7.7) Lymph # (Auto) 1.9 10^3/uL 10^3/ uL (0.8-4.8) [place] # (Auto) 0.4 10^3/uL 10^3/ uL (0.2-0.9) Eos # (Auto) 0.1 10^3/uL 10^3/ uL (0.0-0.8) Baso # (Auto) 0.1 10^3/uL 10^3/ uL (0.0-0.1) Nucleated RBC % (a uto) 0 % % Nucleated RBCs # 0.0 /100WBC /100W BC Sodium Potassium Chloride Carbon Dioxide Anion Gap BUN Creatinine GFR Calculation Glucose POC Glucose 105 mg/dL mg/dL (70-110) Calculated Osmolal ity Calcium Magnesium Total Bilirubin AST ALT Alkaline Phosphata se Creatine Kinase Troponin T Baselin e Troponin T 120 Min [place] Troponin T Troponin T Hi Sens 6Hr 21.94 ng/L H ng/L (0-15) Troponin T Hi Sens 6Hr Delta -5.06 ng/L L ng/L (0-12) NT-Pro-B Natriuret Pep Total Protein Albumin Globulin Ur Random Urea Nit rogn Urine Creatinine 06/26/21 06/26/21 06/26/21 07:15 08:49 17:16 WBC RBC Hgb Hct MCV MCH MCHC RDW Plt Count MPV Neut % (Auto) Lymph % (Auto) [place] % (Auto) Eos % (Auto) Baso % (Auto) Neut # (Auto) Lymph # (Auto) [place] # (Auto) Eos # (Auto) Baso # (Auto) Nucleated RBC % (a uto) Nucleated RBCs # Sodium 140 mmol/L mmol/L (136-145) Potassium 3.9 mmol/L mmol/L (3.5-5.1) Chloride 101 mmol/L mmol/L (98-107) Carbon Dioxide 25 mmol/L mmol/L (22-29) Anion Gap 17.9 (5-19) BUN 20 mg/dL mg/dL (8-23) Creatinine 1.0 mg/dL mg/dL (0.7-1.2) GFR Calculation 75.7 mL/min L mL/ min (90-130) Glucose 104 mg/dL mg/dL (65-115) POC Glucose 127 mg/dL H mg/dL 82 mg/dL mg/dL (70-110) (70-110) Calculated Osmolal ity 293 mOsm/kg mOsm/ kg (285-295) Calcium 8.4 mg/dL L mg/dL (8.5-10.5) Magnesium Total Bilirubin 0.6 mg/dL mg/dL (0.15-1.2) AST 15 U/L U/L (0-40) ALT 19 U/L U/L (0-41) Alkaline Phosphata se 114 IU/L IU/L (40-130) Creatine Kinase Troponin T Baselin e Troponin T 120 Min [place] Troponin T Troponin T Hi Sens 6Hr Troponin T Hi Sens 6Hr [place] NT-Pro-B Natriuret Pep Total Protein 6.5 g/dL L g/dL (6.6-8.7) Albumin 3.5 g/dL g/dL (3.5-5.2) Globulin 3.0 g/dL g/dL (1.3-4.6) Ur Random Urea Nit rogn Urine Creatinine 06/26/21 06/27/21 06/27/21 20:43 03:14 03:14 WBC 4.9 10^3/uL 10^3/ uL (4.0-10.0) RBC 4.92 10^6/uL 10^6 /uL (4.1-5.3) Hgb 9.7 g/dL L g/dL (11.7-16.6) Hct 34.0 % L % (42.0-52.0) MCV 69.1 fl L fl (80-94) MCH 19.7 pg L pg (28.0-34.0) MCHC 28.5 g/dL L g/dL (30.0-36.0) RDW 17.4 % H % (12.1-15.1) Plt Count 248 10^3/cmm 10^3 /cmm (130-400) MPV 10.1 fL fL (7.4-10.4) Neut % (Auto) 44.7 % % Lymph % (Auto) 41.1 % % [place] % (Auto) 10.4 % % Eos % (Auto) 2.2 % % Baso % (Auto) 1.4 % % Neut # (Auto) 2.19 10^3/uL 10^3 /uL (1.8-7.7) Lymph # (Auto) 2.0 10^3/uL 10^3/ uL (0.8-4.8) [place] # (Auto) 0.5 10^3/uL 10^3/ uL (0.2-0.9) Eos # (Auto) 0.1 10^3/uL 10^3/ uL (0.0-0.8) Baso # (Auto) 0.1 10^3/uL 10^3/ uL (0.0-0.1) Nucleated RBC % (a uto) 0 % % Nucleated RBCs # 0.0 /100WBC /100W BC Sodium 139 mmol/L mmol/L (136-145) Potassium 3.7 mmol/L mmol/L (3.5-5.1) Chloride 101 mmol/L mmol/L (98-107) Carbon Dioxide 27 mmol/L mmol/L (22-29) Anion Gap 14.7 (5-19) BUN 15 mg/dL mg/dL (8-23) Creatinine 1.0 mg/dL mg/dL (0.7-1.2) GFR Calculation 75.7 mL/min L mL/ min (90-130) Glucose 83 mg/dL mg/dL (65-115) POC Glucose 120 mg/dL H mg/dL (70-110) Calculated Osmolal ity 288 mOsm/kg mOsm/ kg (285-295) Calcium 8.3 mg/dL L mg/dL (8.5-10.5) Magnesium Total Bilirubin AST ALT Alkaline Phosphata se Creatine Kinase Troponin T Baselin e Troponin T 120 Min [place] Troponin T Troponin T Hi Sens 6Hr Troponin T Hi Sens 6Hr [place] NT-Pro-B Natriuret Pep Total Protein Albumin Globulin Ur Random Urea Nit rogn Urine Creatinine 06/27/21 06/27/21 06:28 11:07 WBC RBC Hgb Hct MCV MCH MCHC RDW Plt Count MPV Neut % (Auto) Lymph % (Auto) [place] % (Auto) Eos % (Auto) Baso % (Auto) Neut # (Auto) Lymph # (Auto) [place] # (Auto) Eos # (Auto) Baso # (Auto) Nucleated RBC % (a uto) Nucleated RBCs # Sodium Potassium Chloride Carbon Dioxide Anion Gap BUN Creatinine GFR Calculation Glucose POC Glucose 90 mg/dL mg/dL 122 mg/dL H mg/dL (70-110) (70-110) Calculated Osmolal ity Calcium Magnesium Total Bilirubin AST ALT Alkaline Phosphata se Creatine Kinase Troponin T Baselin e Troponin T 120 Min [place] Troponin T Troponin T Hi Sens 6Hr Troponin T Hi Sens 6Hr [place] NT-Pro-B Natriuret Pep Total Protein Albumin Globulin Ur Random Urea Nit rogn Urine Creatinine Discharge Plan Discharge Patient Disposition: Admitted As Inpatient Admit Provider: Jag Le Clinical Impression: Congestive heart failure, Atrial fibrillation with RVR, CECILLE (acute kidney injury), Anemia Condition: Stable Coding Level of Care Code ED Sales Process Manager for Bebe Briones
--- NOTE | 2021-06-25 10:30 | PC.PHAR ---
pt states he takes care of his own medications-pt states he has been out of the aspirin 81mg for about 3 weeks-pt states he uses lantus solostar 16 units bid pt states he has one shot left rx last filled apr 2021 for 10 units bid-pt had novolog flexpen on hold at [facility] pharmacy for 5 units tid from 01/16/21 pt states only uses lantus solostar-pt states the metoprolol tartrate 25mg bid was dced ext med history shows last filled 05/02/21 30d/s
[2021-06-25] MEDS: FUROsemide 10 mg/mL SDV 10mL 60 MG IVP (10:38)
[2021-06-25 10:44] LABS: Basophils # 0.1 10^3/uL (0.0-0.1); Eosinophils # 0.1 10^3/uL (0.0-0.8); Eosinophils % 1.2 %; Hematocrit 33.9 % (42.0-52.0); Hemoglobin 9.3 g/dL (11.7-16.6); Lymphocytes # 1.2 10^3/uL (0.8-4.8); Lymphocytes % 23.9 %; Mean Corpuscular HGB Conc 27.4 g/dL (30.0-36.0); Mean Corpuscular Hemoglobin 19.5 pg (28.0-34.0); Mean Corpuscular Volume 71.1 fl (80-94); Mean Platelet Volume 10.4 fL (7.4-10.4); Monocytes # 0.3 10^3/uL (0.2-0.9); Monocytes % 6.2 %; Neutrophils % 67.3 %; Nucleated Red Blood Cells % 0 %; Platelet Count 229 10^3/cmm (130-400); Red Blood Count 4.77 10^6/uL (4.1-5.3); Red Cell Distribution Width 17.5 % (12.1-15.1); White Blood Count 5.2 10^3/uL (4.0-10.0)
[2021-06-25 11:04] LABS: Troponin(5th) Baseline 27 ng/L (0-15)
[2021-06-25 11:12] LABS: Alanine Aminotransferase 21 U/L (0-41); Albumin Level 3.6 g/dL (3.5-5.2); Alkaline Phosphatase 118 IU/L (40-130); Anion Gap 19.1 (5-19); Aspartate Amino Transferase 20 U/L (0-40); Blood Urea Nitrogen 28 mg/dL (8-23); Calcium 8.1 mg/dL (8.5-10.5); Carbon Dioxide 23 mmol/L (22-29); Chloride 103 mmol/L (98-107); Creatine Phosphokinase 142 U/L (39-308); Globulin 2.6 g/dL (1.3-4.6); Glomerular Filtration Rate 51.4 mL/min (90-130); Glucose 168 mg/dL (65-115); Magnesium 2.1 mg/dL (1.7-2.3); NT Pro B Type Natriuretic Pept 2463 pg/mL (0-125); Osmolality Calculated 299 mOsm/kg (285-295); Potassium 5.1 mmol/L (3.5-5.1); Sodium 140 mmol/L (136-145); Total Bilirubin 0.5 mg/dL (0.15-1.2); Total Protein 6.2 g/dL (6.6-8.7)
[2021-06-25 12:00] VITALS: BP 146/83; PULSE 97; O2SAT 98
--- NOTE | 2021-06-25 12:04 | ECG_ITS ---
[facility] Test Date: 2021-06-25 Pat Name: Juan Covarrubias Department: Room: Gender: Male Hospice Manager: : 1960 Requested By: Marcus Yepez Order Number: [id number] [place] MD: Kira Vera M.D. Measurements Intervals [place] Rate: 94 P: CT: QRS: -44 QRSD: 128 T: 120 QT: 392 QTc: 491 Interpretive Statements ATRIAL FIBRILLATION LEFT AXIS DEVIATION [QRS AXIS < -30] POSSIBLE ANTERIOR MYOCARDIAL INFARCTION , OF INDETERMINATE AGE [30 ms Q WAVE IN V3/V4, OR R < 0.2 mV IN V4] Compared to ECG 06/25/2021 12:06:52 Ventricular premature complex(es) no longer present Aberrant conduction of supraventricular beat(s) no longer present Myocardial infarct finding still present Electronically Signed On 06-25-2021 20:56:45 PROSTHODONTIST/OWNER by Kira Vera M.D. [id number]
--- NOTE | 2021-06-25 12:35 | CT_ITS ---
WS: [id number] CT CHEST ANGIOGRAPHY WITH REFORMATS HISTORY: dyspnea TECHNIQUE: Contiguous axial images are obtained through the chest during arterial injection of intrav enous contrast. Images are reconstructed to evaluate the pulmonary arteries. MIP imaging also reviewe d. All CT scans at [facility] use at least one of these dose optimization techniques: automat ed exposure control; mA and/or kV adjustment per patient size (includes targeted exams where dose is matched to clinical indication); or iterative reconstruction. CONTRAST: Visipaque 320; 84 mL IV. DLP: 639.96 mGy.cm COMPARISON: None available. Limited opacification of the pulmonary arteries. Suboptimal opacification of the pulmonary arteries d ue to body habitus. Beyond the lobar branches there is limited opacification. Mildly enlarged pulmona ry artery. Mild atherosclerosis aorta. There is moderate enlargement of the heart. No pericardial or pleural effusion. Lungs are clear. No pneumonia. No mediastinal or hilar adenopathy is identified. [place] bcentimeter RIGHT thyroid nodule. There is significant soft tissue artifact through the upper abdomen from patient's body habitus. Inde terminate for LEFT adrenal nodule. Moderate thoracic spondylosis. CT/CT angio chest PE protcl [id number] IMPRESSION: 1. Suboptimal opacification of the pulmonary arteries. No central pulmonary em boli. Opacification is suboptimal due to body habitus. 2. No pneumonia. 3. Moderate cardiomegaly.
[2021-06-25 13:13] LABS: Troponin 5 2HR 26.06 ng/L (0-15)
[2021-06-25 13:14] VITALS: BP 138/73; PULSE 120; O2SAT 98
[2021-06-25 13:15] LABS: Troponin 5 2HR Delta -0.94 ABS# (0-10)
[2021-06-25] MEDS: iodixanol 320 mg/mL 100mL Btl IV (14:02)
--- NOTE | 2021-06-25 14:36 | P.HP_ITS ---
Providers/Chief Complaint Primary Care Provider: Wali Castillo DO Chief Complaint: SOB/FLUID IN LEGS History of Present Illness 61-year-old gentleman with history of atrial fibrillation, percutaneous May has been struggling with heart rates, mostly not necessarily symptomatic apart from when he gets up and walks around. Denies chest pain or pressure at rest, but with exertion reports feeling mild chest pressure. Reports otherwise chronic lower extremity edema, sleeps usually either in recliner or with a wedge which he recently purchased in bed. Reports history of recurrent lower extremity ulcers. Recently edema with weeping. He denies known history of NE or CHF. Follows with cardiology in office. Reports remote history of DVT in both legs. Reports has not missed any of his medication doses. At home normally takes Cardizem. Takes Eliquis 5 mg twice daily. Also takes prophylactic aspirin. In ER received push of Cardizem for atrial fibrillation with RVR on presentation. Received a portion of Lasix. Heart rates initially in 130s, subsequently with improvement at rest to 100s, but very elevated when trying to get up and walk. Review of Systems Const: Denies: fever(s), chills, body aches or malaise Eyes: Denies: change in vision or eye redness ENMT: Denies: throat pain, oral sores or ear or mastoid pain Card: Reports: palpitations, irregular heart rhythm, edema, swelling of feet/ankles, dyspnea on exertion and orthopnea Resp: Denies: dyspnea, productive cough, change in phlegm color or hemoptysis GI: Denies: abdominal pain, nausea, vomiting, diarrhea, constipation, hematochezia or melena : Denies: flank pain, difficulty urinating, urinary frequency or hematuria Musc: Denies: back pain, joint swelling or joint redness Skin/Breast: Denies: rash, sores or new lesions Neuro: Denies: headache(s), numbness in extremities, weakness in extremities, dizziness, confusion or seizure-like activity Endo: Denies: polyuria or polydipsia [place]/Lymph: Denies: easy bleeding or purpura All/Imm: Denies: urticaria, throat swelling or tongue swelling Medications/Allergies Home Medications Medication Instructions Recorded Confirmed Last Taken Type Lantus Solostar U-100 Insulin 16 unit SUBCUT BID 04/30/21 06/25/21 06/25/21 History allopurinol 300 mg PO QAM 04/30/21 06/25/21 06/25/21 07:00 History apixaban [Eliquis] 5 mg PO BID 30 Days #60 tab 05/02/21 06/25/21 06/25/21 07:00 Rx aspirin 81 mg tablet,delayed 81 mg PO DAILY 05/08/21 06/25/21 Unknown History release magnesium L-lactate 84 mg 84 mg PO BID 30 Days #60 tab 05/08/21 06/25/21 06/25/21 07:00 Rx tablet,extended release tizanidine 4 mg tablet 4 mg PO BID PRN #60 tab 05/10/21 06/25/21 Unknown Rx Lasix 40 mg PO BID 06/25/21 06/25/21 06/24/21 History diltiazem HCl 240 mg PO QAM 06/25/21 06/25/21 06/25/21 07:00 History ibuprofen 600 mg PO Q8H PRN 06/25/21 06/25/21 Unknown History potassium chloride 20 meq PO DAILY 06/25/21 06/25/21 06/25/21 07:00 History Allergies Allergy/AdvReac Type Severity Reaction Status Date / Time morphine Allergy ADR-Vomitin Verified 06/25/21 10:30 g Opioids - Morphine Analogues Allergy Unknown Verified 06/25/21 10:30 Opioids-Meperidine and Allergy Unknown Verified 06/25/21 10:30 Related Opioids-Methadone and Related Allergy Unknown Verified 06/25/21 10:30 peanut Allergy Unknown Verified 06/25/21 10:30 PFSH Acute PFSH: Medical History (Updated 06/25/21 @ 14:40 by Jag Le MD) Arthritis Diabetic neuropathy associated with type 2 diabetes mellitus Diabetic ulcer of lower leg associated with type 2 diabetes mellitus Gout Hx of fracture of leg Type 2 diabetes mellitus without complication, with long-term current use of insulin Surgical History (Updated 06/25/21 @ 14:40 by Jag Le MD) H/O gastric bypass H/O hernia repair Hx of thumb surgery Family History Mother Diabetes Myasthenia gravis Sister Diabetes Father Diabetes Dementia CAD (coronary artery disease) early onset Stroke Denies family history of Clotting disorder Chronic kidney disease (CKD) Suicide Anesthesia complication Bleeding disorder Lung disease Cancer Social History Smoking and tobacco status: never smoked Second hand smoke exposure: No Smoking risk assessment/counseling performed?: No Alcohol intake: current Alcohol intake frequency: few times a month Alcohol type: beer Desire information about alcohol rehabilitation?: No Desire information about substance/drug rehabilitation?: No Vitals/I&O/Wt Last Vital Signs Temp 98.0 F 06/25/21 09:28 Pulse 120 H 06/25/21 13:14 Resp 16 06/25/21 09:28 BP 138/73 06/25/21 13:14 Pulse Ox 98 06/25/21 13:14 Weight last 48 hrs Weight 215.91 kg Physical Exam Const: COMMON NORMALS: no acute distress, patient oriented x3 and alert GENERAL APPEARANCE: cooperative NUTRITIONAL APPEARANCE: obese [place] ENTATION/CONSCIOUSNESS: Yes awake HENMT: COMMON NORMALS: oropharynx normal Neck/C-Spine: COMMON NORMALS: no JVD Resp: COMMON NORMALS: normal respiratory effort and clear to auscultation bilaterally AUSCULTATION: clear to auscultation bilaterally Cardio: COMMON NORMALS: no JVD, regular rhythm, S1 normal heart sound present, S2 normal heart sound present and No murmurs present (Cardio) RATE: t achycardic RHYTHM: abnormal rhythm irregularly irregular HEART SOUNDS: S1 normal heart sound present and S2 normal heart sound present GI: COMMON NORMALS: Normal to inspection, nondistended, normoactive bowel sounds present, Soft to palpation and non-tender PALPATION: Yes Soft to palpation Extremity: COMMON NORMALS: no joint enlargement GENERAL: Yes edema (3+ BL, no weeping currently, but states recently) Neuro: COMMON NORMALS: patient oriented x3 and moves all extremities Skin: COMMON NORMALS: no rashes or lesions noted OTHER: BL stasis dermatitis Data : 06/25/21 10:39 06/25/21 10:39 A&P Assessment and plan (1) Atrial fibrillation with RVR: Cardizem drip. Resume p.o. Cardizem 60 mg every 6 hours. Magnesium, potassium are okay. Reports episode since early May. Discussed with him possibility of difficulty of controlling urine uncontrolled for a while. Also appears to have symptoms of CHF, possible diastolic, possibly tachycardia induced cardiomyopathy. Once heart rate will be better assess TTE. Monitor on telemetry. History of lower extremity VTE. He is on Eliquis, although clinically sure of absorption with CHF/edema. Assess VQ scan. CT angiogram nondiagnostic. Status: Acute (2) Acute exacerbation of CHF (congestive heart failure): IV Lasix 60 mg twice daily. Status: Acute Qualifiers: Heart failure type: combined systolic and diastolic Qualified Code(s): I50.43 - Acute on chronic combined systolic (congestive) and diastolic (congestive) heart failure (3) Leg edema: Secondary to CHF, base possibly also chronic venous stasis, with chronic stasis dermatitis. Keeps his weight down as sleeps mostly in recliner, recently sometimes in bed with a wedge which he purchased. Status: Acute (4) CECILLE (acute kidney injury): Hold ibuprofen. Possibly congestive nephropathy secondary to CHF. Diur esis as above. Check FE urea creatinine new ultrasound. Status: Acute Additional A&P Information Diabetes: Twice daily long-acting insulin. Reports consideration recently has been given to additional sliding scale as well. Attestations Medical Necessity Statement*: Place in observation for further assessment and optimization of control of irregular ER, treatment of CHF exacerbation, assessment of CECILLE. Coding Level of Care Code Acute Solar Fabrication Technician for Bebe Briones Diagnoses Atrial fibrillation with RVR I48.91 Acute exacerbation of CHF (congestive heart failure) I50.43 Heart failure type: combined systolic and diastolic Leg edema R60.0 CECILLE (acute kidney injury) N17.9
[2021-06-25 15:45] LABS: Urine Creatinine 26 mg/dL (39-259)
[2021-06-25 15:50] LABS: Urea Nitrogen,Urine Random 218 mg/dL
--- NOTE | 2021-06-25 16:04 | ECG_ITS ---
[facility] Test Date: 2021-06-25 Pat Name: Juan Covarrubias Department: Room: Gender: Male Purchasing Associate: : 1960 Requested By: Marcus Yepez Order Number: [id number] [place] MD: Kira Vera M.D. Measurements Intervals [place] Rate: 92 P: [place]: QRS: -48 QRSD: 116 T: 29 QT: 376 QTc: 465 Interpretive Statements ATRIAL FIBRILLATION LEFT ANTERIOR FASCICULAR BLOCK [QRS AXIS <= -45, QR IN I, RS IN II] ANTEROSEPTAL MYOCARDIAL INFARCTION , OF INDETERMINATE AGE [40+ ms Q WAVE IN V1-V4] Compared to ECG 06/25/2021 14:51:25 Left anterior fascicular block now present Left-axis deviation no longer present Myocardial infarct finding still present Electronically Signed On 06-25-2021 20:57:25 INCENDIARY POWDER MIXER by Kira Vera M.D. [email or web address] - Parking Ticketscasa [facility].[id number]
[2021-06-25 17:27] LABS: Troponin 5 6HR 21.94 ng/L (0-15); Troponin 5 6HR Delta -5.06 ng/L (0-12)
[2021-06-25 19:24] VITALS: BP 167/89; PULSE 91; RESP 22; O2SAT 97
[2021-06-25 20:00] VITALS: BP 133/86; PULSE 97; RESP 17; O2SAT 98
[2021-06-25] MEDS: dilTIAZem 60 mg Tablet PO (22:49)
[2021-06-25] MEDS: insulin glargine 100 units/1 mL 16 UNIT SUBCUT (22:49)
[2021-06-25] MEDS: apixaban 5 mg Tablet PO (22:49)
[2021-06-26] VITALS (10 sets, daily range): BP systolic 124–142; BP diastolic 71–88; PULSE 79–116; RESP 13–22; TEMP 36.6–36.8; O2SAT 94–99
[2021-06-26] MEDS: dilTIAZem 60 mg Tablet PO ×5 (01:00→20:18)
--- NOTE | 2021-06-26 02:06 | PC.NURSE ---
pt changed into inpatient bed for comfort @ 0036
[2021-06-26] MEDS: FUROsemide 10 mg/mL SDV 10mL 60 MG IVP ×2 (04:25→17:11)
--- NOTE | 2021-06-26 05:18 | PC.NURSE ---
pt requesting meds for H/A, cough and congestion. Page to hospitalist requested
[2021-06-26] MEDS: allopurinol 300 mg Tablet PO (05:46)
[2021-06-26] MEDS: acetaminophen 325 mg Tablet 650 MG PO ×2 (05:46→12:59)
[2021-06-26] MEDS: guaiFENesin 600 mg Tablet PO (05:46)
[2021-06-26 05:50] LABS: Glucose Point of Care 105 mg/dL (70-110)
[2021-06-26] MEDS: perflutren protein-a microsphr 0.22 mg/mL SDV 3 mL IV (07:11)
[2021-06-26 07:28] LABS: Basophils # 0.1 10^3/uL (0.0-0.1); Basophils % 1.3 %; Eosinophils # 0.1 10^3/uL (0.0-0.8); Eosinophils % 1.5 %; Hematocrit 33.9 % (42.0-52.0); Hemoglobin 9.4 g/dL (11.7-16.6); Lymphocytes # 1.9 10^3/uL (0.8-4.8); Lymphocytes % 38.7 %; Mean Corpuscular HGB Conc 27.7 g/dL (30.0-36.0); Mean Corpuscular Hemoglobin 19.4 pg (28.0-34.0); Mean Corpuscular Volume 69.9 fl (80-94); Mean Platelet Volume 9.9 fL (7.4-10.4); Monocytes # 0.4 10^3/uL (0.2-0.9); Monocytes % 7.9 %; Neutrophils % 50.2 %; Nucleated Red Blood Cells % 0 %; Platelet Count 253 10^3/cmm (130-400); Red Blood Count 4.85 10^6/uL (4.1-5.3); Red Cell Distribution Width 17.6 % (12.1-15.1); White Blood Count 4.8 10^3/uL (4.0-10.0)
[2021-06-26 07:50] LABS: Alanine Aminotransferase 19 U/L (0-41); Albumin Level 3.5 g/dL (3.5-5.2); Alkaline Phosphatase 114 IU/L (40-130); Anion Gap 17.9 (5-19); Aspartate Amino Transferase 15 U/L (0-40); Blood Urea Nitrogen 20 mg/dL (8-23); Calcium 8.4 mg/dL (8.5-10.5); Carbon Dioxide 25 mmol/L (22-29); Chloride 101 mmol/L (98-107); Glomerular Filtration Rate 75.7 mL/min (90-130); Glucose 104 mg/dL (65-115); Osmolality Calculated 293 mOsm/kg (285-295); Potassium 3.9 mmol/L (3.5-5.1); Sodium 140 mmol/L (136-145); Total Bilirubin 0.6 mg/dL (0.15-1.2); Total Protein 6.5 g/dL (6.6-8.7)
--- NOTE | 2021-06-26 07:58 | USCV_ITS ---
Juan Covarrubias Age: 61 Gender: M : 1960 Exam Date: 06/26/2021 08:22 Ordering Phys: Jag Le MD Technologist: Belkys Thornton Exam Location: [facility] [place] Indication: BLE SWELLING HISTORY: Lower extremity swelling. PROCEDURES: Venous duplex imaging was performed in bilateral lower extremities. The following venous structures were evaluated: common femoral vein, profunda vein, proximal portion of the greater saphenous vein, superficial femoral vein, and the popliteal vein. In addition, the posterior tibial and peroneal trunk were evaluated. Serial compression, augmentation maneuvers, and spectral Doppler flow evaluation were performed. FINDINGS: Normal 2-D Doppler and augmentation and compressibility throughout the lower extremity venous structures. Additional imaging through the proximal calf veins also reveals no thrombus. Limited evaluation of the greater saphenous vein is patent with no thrombus. Examination was technically limited due to body habitus. CONCLUSIONS No DVT bilateral lower extremities. Tecnically difficult study. Dr. Leanna Castillo DO (Electronically Signed) Final Date: 26 June 2021 09:30 S
[2021-06-26 08:51] LABS: Glucose Point of Care 127 mg/dL (70-110)
[2021-06-26] MEDS: apixaban 5 mg Tablet PO ×2 (09:00→17:11)
[2021-06-26] MEDS: aspirin 81 mg EC Tablet PO (09:01)
[2021-06-26] MEDS: insulin glargine 100 units/1 mL 16 UNIT SUBCUT ×2 (09:10→21:44)
[2021-06-26] MEDS: metoprolol tartrate 25 mg Tablet PO (17:11)
[2021-06-26 17:34] LABS: Glucose Point of Care 82 mg/dL (70-110)
--- NOTE | 2021-06-26 18:38 | P.PN_ITS ---
Subjective Subjective: Interval history: Reports he is doing okay. At rest heart rate is better. With exertion again going up into 130s. Denies chest pain or pressure. No fever, chills, nausea vomiting or diarrhea. Vitals/I&O/Wt Last Vital Signs Temp 98.0 F 06/25/21 09:28 Pulse 104 H 06/26/21 16:56 Resp 18 06/26/21 14:46 BP 140/71 06/26/21 16:48 Pulse Ox 99 06/26/21 16:48 06/26/21 06/26/21 06/26/21 06:59 14:59 22:59 Intake Total 365 / 365 Balance 365 / 365 Weight last 48 hrs Weight 215.91 kg Physical Exam Const: COMMON NORMALS: no acute distress, patient oriented x3 and alert GENERAL APPEARANCE: cooperative NUTRITIONAL APPEARANCE: obese ORIENTATION/CONSCIOUSNESS: Yes awake HENMT: COMMON NORMALS: oropharynx normal Neck/C-Spine: COMMON NORMALS: no JVD Resp: COMMON NORMALS: normal respiratory effort and clear to auscultation bilaterally AUSCULTATION: clear to auscultation bilaterally Cardio: COMMON NORMALS: no JVD, regular rhythm, S1 normal heart sound present, S2 normal heart sound present and No murmurs present (Cardio) RATE: tachycardic RHYTHM: regular rhythm and abnormal rhythm irregularly irregular HEART SOUNDS: S1 normal heart sound present and S2 normal heart sound present GI: COMMON NORMALS: Normal to inspection, nondistended, normoactive bowel sounds present, Soft to palpation and non-tender PALPATION: Yes Soft to palpation Extremity: COMMON NORMALS: no joint enlargement GENERAL: Yes edema (3+ BL, no weeping currently, but states recently) Neuro: COMMON NORMALS: patient oriented x3 and moves all extremities SENSORIUM/ORIENTATION: Yes alert Skin: COMMON NORMALS: no rashes or lesions noted GENERAL SKIN EXAM: no rashes or lesions noted OTHER: BL stasis dermatitis Data : 06/26/21 07:15 06/26/21 07:15 A&P Assessment and plan (1) Atrial fibrillation with RVR: Weaned off Cardizem drip. At rest heart rates are better., However, with exertion still going up into 130s. Increased p.o. Cardizem to 60 mg every 4 hours. Still tachycardia with exertion. Adding metoprolol 25 mg twice daily. Continue telemetry monitoring. Magnesium, potassium are okay. TTE with diffuse ectasia left ventricle, EF 45% (visually), mildly dilated right ventricle with diminished ejection fraction. Mild biatrial enlargement. Aortic valve appears minimally thickened. Technically difficult study. We will benefit from additional assessment by stress testing to exclude ischemia contributing to A. fib with RVR. Otherwise could be tachycardia induced cardiomyopathy given protracted A. fib with RVR. History of lower extremity VTE. He is on Eliquis, although clinically sure of absorption with CHF/edema. Chest CTA nondiagnostic. Could not assess VQ scan. Lower extremity duplex requested, negative for DVT but technically difficult study. Continue Eliquis. Status: Acute (2) Acute exacerbation of CHF (congestive heart failure): IV Lasix 60 mg twice daily. Edema improving. TTE with diffuse ectasia left ventricle, EF 45% (visually), mildly dilated right ventricle with diminished ejection fraction. Mild biatrial enlargement. Aortic valve appears minimally thickened. Technically difficult study. We will benefit from additional assessment by stress testing once heart rate is under control. Otherwise possibly tachycardia induced cardiomyopathy. Status: Acute Qualifiers: Heart failure type: combined systolic and diastolic Qualified Code(s): I50.43 - Acute on chronic combined systolic (congestive) and diastolic (congestive) heart failure (3) Leg edema: Secondary to CHF, base possibly also chronic venous stasis, with chronic stasis dermatitis. Keeps his weight down as sleeps mostly in recliner, recently sometimes in bed with a wedge which he purchased. Status: Acute (4) CECILLE (acute kidney injury): Hold ibuprofen. So far improving, responding well to diuresis. Monitor renal function, I&O. Status: Acute Additional A&P Information Diabetes: Twice daily long-acting insulin. Reports consideration recently has been given to additional sliding scale as well. Attestations Medical Necessity Statement*: Continue admission for optimization of control of A. fib with RVR, treatment of CHF exacerbation, additional assessment of worsening ejection fraction/cardiomyopathy. Coding Level of Care Code Acute Interrelated Special Education Teacher for Chg Fwd Exam Comprehensive Diagnoses Atrial fibrillation with RVR I48.91 Acute exacerbation of CHF (congestive heart failure) I50.43 Heart failure type: combined systolic and diastolic Leg edema R60.0 CECILLE (acute kidney injury) N17.9
--- NOTE | 2021-06-26 19:25 | USCV_ITS ---
Juan Covarrubias Age: 61 Gender: M : 1960 Exam Date: 06/26/2021 06:46 Ordering Phys: Jag Le MD Technologist: Belkys Thornton Exam Location: [facility] [place] Indication: CHF BP: 127 / 75 HR: 111 Rhythm: Sinus Technical Quality: Adequate MEASUREMENTS (Male / Female) Normal Values 2D ECHO LV Diastolic Diameter PLAX 5.1 cm 4.2 - 5.9 / 3.9 - 5.3 cm LV Systolic Diameter PLAX 4.1 cm IVS Diastolic Thickness 1.3 cm 0.6 - 1.0 / 0.6 - 0.9 cm IVS Systolic Thickness 1.9 cm LVPW Diastolic Thickness 1.6 cm 0.6 - 1.0 / 0.6 - 0.9 cm LVPW Systolic Thickness 2.0 cm LVOT Diameter 2.0 cm LV Ejection Fraction 2D Teich 41.1 % LV Ejection Fraction MOD 2C 25.9 % LV Ejection Fraction 2C AL 23.1 % LA Diameter 4.3 cm LA Width 4.6 cm LA Height 5.7 cm RA Width 4.8 cm RA Height 5.4 cm Aorta at Sinotubular Diameter 2.7 cm M-MODE Aortic Annulus Diameter 3.6 cm LA Ao Ratio MM 1.1 MV E Point Septal Separation 0.6 cm DOPPLER AV Peak Velocity 167.0 cm/s LVOT Peak Velocity 86.3 cm/s AV Area Cont Eq vti 1.6 cm squared AV Area Cont Eq pk 1.6 cm squared MV Peak Velocity 163.0 cm/s MV Area PHT 4.6 cm squared MV E' Velocity 67.5 cm/s Mitral E to MV E' Ratio 11.5 Mitral E to LV E' Lateral Ratio 11.9 Mitral E to LV E' Septal Ratio 11.3 TR Peak Velocity 210.0 cm/s TR Peak Gradient 17.6 mmHg TV Peak E Velocity 79.0 cm/s PV Peak Velocity 92.0 cm/s RV Acceleration Time 0.1 s RV Ejection Time 0.3 s RV AcT/ET 0.2 FINDINGS Left Ventricle Technically very difficult study. Left ventricle appears to be dilated. Diffuse hypokinesia of the left ventricle was noted. Ejection fraction around 45%-visual Right Ventricle Right auricle appears to be dilated with moderately diminished ejection fraction Right Atrium Mildly increased right atrial size. Left Atrium Mildly increased left atrial size. Mitral Valve No gross abnormalities noted Aortic Valve Thickened aortic valve. Tricuspid Valve No gross abnormalities noted Pulmonic Valve Pulmonic valve not well visualized. Pericardium No pericardial effusion. Aorta Normal aortic annulus size. CONCLUSIONS Diffuse hypokinesia left ventricle with ejection fraction of around 45% (visual). Mildly dilated right ventricle with a diminished ejection fraction Mild biatrial enlargement. Aortic valve appears to be minimally thickened. Technically difficult study because of poor ultrasonic window. Contrast echo study also was very suboptimal in quality. Dr Kira Vera MD FACC (Electronically Signed) Final Date: 26 June 2021 18:08 S
--- NOTE | 2021-06-26 19:25 | US_ITS ---
WS: [id number] RENAL ULTRASOUND URINARY BLADDER ULTRASOUND HISTORY: chon COMPARISON: None available. TECHNIQUE: 2-D and color Doppler imaging of the kidney submitted. Technically difficult and limited evaluation due to body habitus. Right kidney: 11.8 cm x 5.1 cm x 4.9 cm. Normal size kidney. No cortical thinning or hydronephrosis. Small masses would be difficult to exclud e. Left kidney: 11.2 cm x 5.8 cm x 5.9 cm. Normal echogenicity. Very limited evaluation of the kidney. There is no hydronephrosis. Solid mass wo uld be difficult to exclude. Aorta: Not visualized. Urinary Bladder: Minimal distention of the urinary bladder. Prevoid there is only mild distention of the bladder. There is minimal post void residual of 17 mL. US/US renal BI with PV bladder IMPRESSION: 1. Technically very difficult evaluation of the kidneys due to body habitus. K idneys appear normal size with no hydronephrosis. Otherwise limited. 2. No significant post void residual.
[2021-06-26 23:15] LABS: Glucose Point of Care 120 mg/dL (70-110)
[2021-06-27] VITALS (9 sets, daily range): BP systolic 128–162; BP diastolic 82–87; PULSE 85–106; RESP 16–22; TEMP 35.6–36.8; O2SAT 94–98; BMI 53.6
[2021-06-27] MEDS: dilTIAZem 60 mg Tablet PO ×6 (00:59→20:37)
[2021-06-27 03:54] LABS: Basophils # 0.1 10^3/uL (0.0-0.1); Basophils % 1.4 %; Eosinophils # 0.1 10^3/uL (0.0-0.8); Eosinophils % 2.2 %; Hemoglobin 9.7 g/dL (11.7-16.6); Lymphocytes % 41.1 %; Mean Corpuscular HGB Conc 28.5 g/dL (30.0-36.0); Mean Corpuscular Hemoglobin 19.7 pg (28.0-34.0); Mean Corpuscular Volume 69.1 fl (80-94); Mean Platelet Volume 10.1 fL (7.4-10.4); Monocytes # 0.5 10^3/uL (0.2-0.9); Monocytes % 10.4 %; Neutrophils # 2.19 10^3/uL (1.8-7.7); Neutrophils % 44.7 %; Nucleated Red Blood Cells % 0 %; Platelet Count 248 10^3/cmm (130-400); Red Blood Count 4.92 10^6/uL (4.1-5.3); Red Cell Distribution Width 17.4 % (12.1-15.1); White Blood Count 4.9 10^3/uL (4.0-10.0)
[2021-06-27] MEDS: FUROsemide 10 mg/mL SDV 10mL 60 MG IVP ×2 (04:07→16:17)
[2021-06-27 04:08] LABS: Anion Gap 14.7 (5-19); Blood Urea Nitrogen 15 mg/dL (8-23); Calcium 8.3 mg/dL (8.5-10.5); Carbon Dioxide 27 mmol/L (22-29); Chloride 101 mmol/L (98-107); Creatinine Clr Calc Pharmacy 151.7733; Glomerular Filtration Rate 75.7 mL/min (90-130); Glucose 83 mg/dL (65-115); Osmolality Calculated 288 mOsm/kg (285-295); Potassium 3.7 mmol/L (3.5-5.1); Sodium 139 mmol/L (136-145)
[2021-06-27] MEDS: allopurinol 300 mg Tablet PO (05:48)
--- NOTE | 2021-06-27 06:10 | PC.NURSE ---
Shift Note Frequent safety and comfort rounds continue. Orders and/or nursing care completed as indicated. Patient monitored for response to intervention and treatment(s). Education provided includes cardizem being used to control his heart rate. 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 Will continue to monitor.
--- NOTE | 2021-06-27 06:11 | PC.NURSE ---
Patient responding well to cardizem po for heart rate. Heartrate 76 at this time. Elevates when going to the bathroom or with activity. Patient denies pain. Given lasix 60mg IV this am. Patient with sufficient output. Will continue to monitor.
[2021-06-27 06:41] LABS: Glucose Point of Care 90 mg/dL (70-110)
[2021-06-27] MEDS: aspirin 81 mg EC Tablet PO (09:33)
[2021-06-27] MEDS: metoprolol tartrate 25 mg Tablet PO (09:34)
[2021-06-27] MEDS: apixaban 5 mg Tablet PO ×2 (09:35→17:38)
--- NOTE | 2021-06-27 11:15 | P.PN_ITS ---
Subjective Subjective: Interval history: Feeling better, regaining some of his energy. Edema decreasing. No chest pain or pressure. No nausea vomiting or diarrhea. Vitals/I&O/Wt Last Vital Signs Temp 97.6 F 06/27/21 08:07 Pulse 100 06/27/21 08:07 Resp 19 H 06/27/21 08:07 BP 128/86 06/27/21 08:07 Pulse Ox 96 06/27/21 08:07 06/26/21 06/27/21 06/27/21 22:59 06:59 14:59 Intake Total 365 / 365 300 / 665 Output Total 1600 / 1600 Balance 365 / 365 -1300 / -935 Weight last 48 hrs Weight 209.696 kg Weight 215.91 kg Physical Exam Const: COMMON NORMALS: no acute distress, patient oriented x3 and alert GENERAL APPEARANCE: cooperative NUTRITIONAL APPEARANCE: obese ORIENTATION/CONSCIOUSNESS: Yes awake HENMT: COMMON NORMALS: oropharynx normal Neck/C-Spine: COMMON NORMALS: no JVD Resp: COMMON NORMALS: normal respiratory effort and clear to auscultation bilaterally AUSCULTATION: clear to auscultation bilaterally Cardio: COMMON NORMALS: no JVD, regular rhythm, S1 normal heart sound present, S2 normal heart sound present and No murmurs present (Cardio) RATE: tachycardic RHYTHM: regular rhythm and abnormal rhythm irregularly irregular HEART SOUNDS: S1 normal heart sound present and S2 normal heart sound present GI: COMMON NORMALS: Normal to inspection, nondistended, normoactive bowel sounds present, Soft to palpation and non-tender PALPATION: Yes Soft to palpation Extremity: COMMON NORMALS: no joint enlargement GENERAL: Yes edema (Improving 2-3+ BL, no weeping) Neuro: COMMON NORMALS: patient oriented x3 and moves all extremities SENSORIUM/ORIENTATION: Yes alert Skin: COMMON NORMALS: no rashes or lesions noted GENERAL SKIN EXAM: no rashes or lesions noted OTHER: BL stasis dermatitis Data : 06/27/21 03:14 06/27/21 03:14 A&P Assessment and plan (1) Atrial fibrillation with RVR: Continue Cardizem, metoprolol. Discussed with him to ambulate today, we will see whether his heart rates rise high with exertion exam. Discussed with him we can further adjust his metoprolol dose. Discussed with him additional assessment of cardiomyopathy noted on TTE. CHF. Suspect possibly tachycardia induced, however, cannot exclude ischemic cardiomyopathy at this time. Discussed additional assessment by stress testing, he is agreeable. Cannot ambulate well, prescription for chemical stress test. TTE with diffuse ectasia left ventricle, EF 45% (visually), mildly dilated right ventricle with diminished ejection fraction. Mild biatrial enlargement. Aortic valve appears minimally thickened. Technically difficult study. History of lower extremity VTE. He is on Eliquis, although clinically sure of absorption with CHF/edema. Chest CTA nondiagnostic. Could not assess VQ scan. Lower extremity duplex requested, negative for DVT but technically difficult study. Continue Eliquis. Status: Acute (2) Acute exacerbation of CHF (congestive heart failure): IV Lasix 60 mg twice daily. Edema improving. Additional assessment by stress testing to exclude ischemic cardiomyopathy. TTE with diffuse ectasia left ventricle, EF 45% (visually), mildly dilated right ventricle with diminished ejection fraction. Mild biatrial enlargement. Aortic valve appears minimally thickened. Technically difficult study. We will benefit from additional assessment by stress testing once heart rate is under control. Otherwise possibly tachycardia induced cardiomyopathy. Status: Acute Qualifiers: Heart failure type: combined systolic and diastolic Qualified Code(s): I50.43 - Acute on chronic combined systolic (congestive) and diastolic (congestive) heart failure (3) Leg edema: Improving with diuresis. Secondary to CHF, base possibly also chronic venous stasis, with chronic stasis dermatitis. Keeps his weight down as sleeps mostly in recliner, recently sometimes in bed with a wedge which he purchased. Status: Acute (4) CECILLE (acute kidney injury): Hold ibuprofen. So far improving, responding well to diuresis. Monitor renal function, I&O. Status: Acute Additional A&P Information Diabetes: Twice daily long-acting insulin. Reports consideration recently has been given to additional sliding scale as well. Attestations Medical Necessity Statement*: Continue admission for optimization of control of A. fib with RVR, further assessment for ischemic cardiomyopathy with decreased ejection fraction, 45% on TTE. Coding Level of Care Code Acute Printed Circuit Board Assembler for Chg Fwd Diagnoses Atrial fibrillation with RVR I48.91 Acute exacerbation of CHF (congestive heart failure) I50.43 Heart failure type: combined systolic and diastolic Leg edema R60.0 CECILLE (acute kidney injury) N17.9
[2021-06-27 11:34] LABS: Glucose Point of Care 122 mg/dL (70-110)
[2021-06-27 16:23] LABS: Glucose Point of Care 127 mg/dL (70-110)
--- NOTE | 2021-06-27 17:43 | P.CONIM_ITS ---
Providers/Reason For Consult Consulting Physician/Specialty*: Dr. Lewis, cardiology Reason for Consult*: A. fib with RVR, CHF Attending Physician: Jag Le Primary Care Provider: Wali Castillo DO History of Present Illness History of Present Illness Juan Covarrubias is a 61 year old male with past medical history of recently diagnosed paroxysmal atrial fibrillation, congestive heart failure (HFmrEF), morbid obesity (BMI greater than 50 ), diabetes, diabetic neuropathy, history of diabetic foot ulcers, history of DVTs, anemia and peripheral vascular disease who was hospitalized in April 2021 for decompensated congestive heart failure and was incidentally found to be in A. fib with RVR. He was started on metoprolol and Eliquis. He was seen by Dr. Vera in clinic and was also placed on Holter monitor. Patient was in atrial fibrillation about 80% of the time with average heart rate of 107 bpm. There were episodes of second-degree type I and type II AV block with minimal heart rate of 42 bpm. He recently moved to the area and states he was under some significant stress in the time and gained nearly 40 pounds. He was hospitalized on 25 June 2021 with worsening lower extremity edema with weeping extending all the way up to his thighs associated with tachycardia with heart rate reaching 120s to 130s at times. He tells me he has been sleeping in a recliner or with a wedge for some time now. No prior URI or UTI-like symptoms. Denies any medication noncompliance. In ER he received Cardizem and was started on Lasix. He underwent repeat echocardiogram which was technically difficult in spite of use of echo contrast and visually estimated LVEF was 45% with diffuse left ventricular hypokinesis. Right ventricle was noted to be mildly dilated with diminished ejection fraction as well. Patient denies having any chest pain but complains of exertional dyspnea but does state that since arrival he seems to be 70 to 80% better. He is now on Cardizem 60 mg every 4 hour and has been started on metoprolol tartrate 25 mg twice a day. Stress test was attempted however because of patient's weight it could not be performed. I have been asked to assist in further management. Review of Systems Const: Denies: fever(s), chills, body aches or malaise Eyes: Denies: change in vision or eye redness ENMT: Denies: throat pain, oral sores or ear or mastoid pain Card: Reports: palpitations, irregular heart rhythm, edema, swelling of feet/ankles, dyspnea on exertion and orthopnea Resp: Denies: dyspnea, productive cough, change in phlegm color or hemoptysis GI: Denies: abdominal pain, nausea, vomiting, diarrhea, constipation, hematochezia or melena : Denies: flank pain, difficulty urinating, urinary frequency or hematuria Musc: Denies: back pain, joint swelling or joint redness Skin/Breast: Denies: rash, sores or new lesions Neuro: Denies: headache(s), numbness in extremities, weakness in extremities, dizziness, confusion or seizure-like activity Endo: Denies: polyuria or polydipsia Omero/Lymph: Denies: easy bleeding or purpura All/Imm: Denies: urticaria, throat swelling or tongue swelling Meds/Allergies Home Medications and Allergies Home Medications Medication Instructions Recorded Confirmed Last Taken Type Lantus Solostar U-100 Insulin 16 unit SUBCUT BID 04/30/21 06/25/21 06/25/21 History allopurinol 300 mg PO QAM 04/30/21 06/25/21 06/25/21 07:00 History apixaban [Eliquis] 5 mg PO BID 30 Days #60 tab 05/02/21 06/25/21 06/25/21 07:00 Rx aspirin 81 mg tablet,delayed 81 mg PO DAILY 05/08/21 06/25/21 Unknown History release magnesium L-lactate 84 mg 84 mg PO BID 30 Days #60 tab 05/08/21 06/25/21 06/25/21 07:00 Rx tablet,extended release tizanidine 4 mg tablet 4 mg PO BID PRN #60 tab 05/10/21 06/25/21 Unknown Rx Lasix 40 mg PO BID 06/25/21 06/25/21 06/24/21 History diltiazem HCl 240 mg PO QAM 06/25/21 06/25/21 06/25/21 07:00 History ibuprofen 600 mg PO Q8H PRN 06/25/21 06/25/21 Unknown History potassium chloride 20 meq PO DAILY 06/25/21 06/25/21 06/25/21 07:00 History Allergies Allergy/AdvReac Type Severity Reaction Status Date / Time morphine Allergy ADR-Vomitin Verified 06/25/21 10:30 g Opioids - Morphine Analogues Allergy Unknown Verified 06/25/21 10:30 Opioids-Meperidine and Allergy Unknown Verified 06/25/21 10:30 Related Opioids-Methadone and Related Allergy Unknown Verified 06/25/21 10:30 peanut Allergy Unknown Verified 06/25/21 10:30 Current Medications Current Medications Generic Name Dose Route Start Last Admin Trade Name Freq PRN Reason Stop Dose Admin Acetaminophen 650 mg 06/26/21 05:25 06/26/21 12:59 Acetaminophen 325 Mg Tablet PO 650 mg Q6H PRN Administration MILD PAIN Allopurinol 300 mg 06/26/21 06:00 06/27/21 05:48 Allopurinol 300 Mg Tablet PO 300 mg QAM JOSTIN Administration Apixaban 5 mg 06/25/21 19:25 06/27/21 17:38 Apixaban 5 Mg Tablet PO 5 mg BID JOSTIN Administration Aspirin 81 mg 06/26/21 09:00 06/27/21 09:33 Aspirin 81 Mg Ec Tablet PO 81 mg DAILY JOSTIN Administration Diltiazem HCl 60 mg 06/26/21 08:01 06/27/21 16:17 Diltiazem 60 Mg Tablet PO 60 mg Q4H JOSTIN Administration Furosemide 60 mg 06/26/21 04:00 06/27/21 16:17 Furosemide 10 Mg/Ml Sdv 10ml IVP 60 mg Q12H JOSTIN Administration Insulin Glargine 16 unit 06/25/21 20:00 06/27/21 09:33 Insulin Glargine 100 Units/1 Ml SUBCUT Not Given Q12H JOSTIN PFSH Acute PFSH: Medical History Arthritis Diabetic neuropathy associated with type 2 diabetes mellitus Diabetic ulcer of lower leg associated with type 2 diabetes mellitus Gout Hx of fracture of leg Type 2 diabetes mellitus without complication, with long-term current use of insulin Surgical History H/O gastric bypass H/O hernia repair Hx of thumb surgery Family History Mother Diabetes Myasthenia gravis Sister Diabetes Father Diabetes Dementia CAD (coronary artery disease) early onset Stroke Denies family history of Clotting disorder Chronic kidney disease (CKD) Suicide Anesthesia complication Bleeding disorder Lung disease Cancer Social History Smoking and tobacco status: never smoked Second hand smoke exposure: No Smoking risk assessment/counseling performed?: No Alcohol intake: current Alcohol intake frequency: few times a month Alcohol type: beer Desire information about alcohol rehabilitation?: No Desire information about substance/drug rehabilitation?: No Vitals/I&O/Wt Last Vital Signs Temp 96.1 F L 06/27/21 15:46 Pulse 94 06/27/21 15:46 Resp 20 H 06/27/21 15:46 BP 129/84 06/27/21 15:46 Pulse Ox 97 06/27/21 15:46 06/27/21 06/27/21 06/27/21 06:59 14:59 22:59 Intake Total 300 / 665 440 / 440 Output Total 1600 / 1600 Balance -1300 / -935 440 / 440 Weight last 48 hrs Weight 462 lb 4.8 oz Weight 476 lb Physical Exam Narrative: EXAM NARRATIVE: GENERAL: obese man sittinh in bed in no acute distress HEENT: Pupils equal round reactive to light. No pallor or icterus. NECK: +JVD, No carotid bruit. CARDIOVASCULAR SYSTEM: S1-S2 irregular. No murmur rubs or gallops. RESPIRATORY SYSTEM: Chest clear to auscultation. No wheezes rhonchi or rubs heard. ABDOMEN: Soft, nontender and nondistended. Normal bowel sounds present. EXTREMITIES: 2+ edema. No signs of chronic venous insufficiency. MEDICAL ONCOLOGY PHYSICIAN: Patient is alert oriented ?3. No focal neurological deficits. A&P Assessment and plan (1) Atrial fibrillation with RVR: May need CV if he remains uncontrolled. -increase metoprolol to 50 mg BID. -continue cardizem and Eliquis. Status: Acute (2) Acute exacerbation of CHF (congestive heart failure): HFmrEF with RV dysfunction -continue with IV lasix -Unsure if he would be able to have cardiac cath. I will check on the weight limit. Status: Acute Qualifiers: Heart failure type: combined systolic and diastolic Qualified Code(s): I50.43 - Acute on chronic combined systolic (congestive) and diastolic (congestive) heart failure (3) Leg edema: Status: Acute Additional A&P Information Morbid obesity Suspect MICHELLE and OHS: Insulin-dependent diabetes mellitus Gout Thank you for allowing me to participate in patient's care. Please feel free to call with questions or concerns. Consult Attestations Time Spent in Patient Care: 16 - 35 minutes (>than 50% of time spent in counselling and/or direct pt care on unit) . Coding Level of Care Code Acute Asphalt Blender for Bebe Fwd Diagnoses Atrial fibrillation with RVR I48.91 Acute exacerbation of CHF (congestive heart failure) I50.43 Heart failure type: combined systolic and diastolic Leg edema R60.0
[2021-06-27] MEDS: insulin glargine 100 units/1 mL 16 UNIT SUBCUT (20:37)
[2021-06-27] MEDS: metoprolol tartrate 25 mg Tablet 50 MG PO (20:47)
[2021-06-27 21:37] LABS: Glucose Point of Care 154 mg/dL (70-110)
--- NOTE | 2021-06-27 23:05 | PC.NURSE ---
Patient lying in bed at first assessment. Denies pain. Keeping track of his urine output via urinal. Metroprolol increased to 50 mg instead of 25. Will continue to monitor.
[2021-06-28] VITALS (64 sets, daily range): BP systolic 122–159; BP diastolic 59–98; PULSE 76–97; RESP 13–18; TEMP 36.5–36.8; O2SAT 82–99
[2021-06-28] MEDS: dilTIAZem 60 mg Tablet PO ×6 (00:46→20:59)
[2021-06-28] MEDS: tizanidine 4 mg Tablet PO (00:48)
--- NOTE | 2021-06-28 01:35 | PC.NURSE ---
Patient complaints of left neck pain, possibly from the way he has been sleeping he feels. Zanaflex given. Will continue to monitor.
[2021-06-28 03:57] LABS: Basophils % 0.9 %; Eosinophils # 0.1 10^3/uL (0.0-0.8); Eosinophils % 2.2 %; Hemoglobin 8.9 g/dL (11.7-16.6); Lymphocytes # 1.7 10^3/uL (0.8-4.8); Lymphocytes % 37.5 %; Mean Corpuscular HGB Conc 27.8 g/dL (30.0-36.0); Mean Corpuscular Hemoglobin 19.3 pg (28.0-34.0); Mean Corpuscular Volume 69.3 fl (80-94); Monocytes # 0.5 10^3/uL (0.2-0.9); Monocytes % 10.5 %; Neutrophils # 2.18 10^3/uL (1.8-7.7); Neutrophils % 48.7 %; Nucleated Red Blood Cells % 0 %; Platelet Count 225 10^3/cmm (130-400); Red Blood Count 4.62 10^6/uL (4.1-5.3); Red Cell Distribution Width 17.6 % (12.1-15.1); White Blood Count 4.5 10^3/uL (4.0-10.0)
[2021-06-28 04:19] LABS: Anion Gap 14.5 (5-19); Blood Urea Nitrogen 16 mg/dL (8-23); Carbon Dioxide 30 mmol/L (22-29); Chloride 98 mmol/L (98-107); Creatinine Clr Calc Pharmacy 151.7733; Glomerular Filtration Rate 75.7 mL/min (90-130); Glucose 102 mg/dL (65-115); Osmolality Calculated 289 mOsm/kg (285-295); Potassium 3.5 mmol/L (3.5-5.1); Sodium 139 mmol/L (136-145)
[2021-06-28] MEDS: FUROsemide 10 mg/mL SDV 10mL 60 MG IVP ×2 (05:35→16:42)
[2021-06-28] MEDS: allopurinol 300 mg Tablet PO (05:36)
--- NOTE | 2021-06-28 06:09 | PC.NURSE ---
Patient states after zanaflex he was able to get some sleep. Still diuresing suffiecent amounts. Denies pain at this time. Will continue to monitor.
[2021-06-28] MEDS: insulin glargine 100 units/1 mL 16 UNIT SUBCUT ×2 (09:00→20:59)
[2021-06-28] MEDS: metoprolol tartrate 25 mg Tablet 50 MG PO ×2 (09:02→20:59)
[2021-06-28] MEDS: aspirin 81 mg EC Tablet PO (09:02)
[2021-06-28 11:03] LABS: Glucose Point of Care 105 mg/dL (70-110)
--- NOTE | 2021-06-28 14:26 | PM.PN ---
Subjective Subjective: Interval history: He is doing well. Denies chest pain or pressure. Heart rates continue to improve. No lightheadedness, dizziness, nausea or vomiting. Vitals/I&O/Wt Last Vital Signs Temp 97.7 F 06/28/21 12:00 Pulse 78 06/28/21 12:00 Resp 15 06/28/21 12:00 BP 122/59 06/28/21 12:00 Pulse Ox 99 06/28/21 12:00 06/27/21 06/28/21 06/28/21 22:59 06:59 14:59 Intake Total 200 / 640 150 / 790 358 / 358 Output Total 3550 / 7100 3550 / 36225 Balance -3350 / -6460 -3400 / -9860 358 / 358 Weight last 48 hrs Weight 202.302 kg Weight 209.696 kg Weight 215.91 kg Physical Exam Const: COMMON NORMALS: no acute distress, patient oriented x3 and alert GENERAL APPEARANCE: cooperative NUTRITIONAL APPEARANCE: obese ORIENTATION/CONSCIOUSNESS: Yes awake HENMT: COMMON NORMALS: oropharynx normal Neck/C-Spine: COMMON NORMALS: no JVD Resp: COMMON NORMALS: normal respiratory effort and clear to auscultation bilaterally AUSCULTATION: clear to auscultation bilaterally Cardio: COMMON NORMALS: no JVD, regular rhythm, S1 normal heart sound present, S2 normal heart sound present and No murmurs present (Cardio) RATE: tachycardic RHYTHM: regular rhythm and abnormal rhythm irregularly irregular HEART SOUNDS: S1 normal heart sound present and S2 normal heart sound present GI: COMMON NORMALS: Normal to inspection, nondistended, normoactive bowel sounds present, Soft to palpation and non-tender PALPATION: Yes Soft to palpation Extremity: COMMON NORMALS: no joint enlargement GENERAL: Yes edema (Improving 2-3+ BL, no weeping) Neuro: COMMON NORMALS: patient oriented x3 and moves all extremities SENSORIUM/ORIENTATION: Yes alert Skin: COMMON NORMALS: no rashes or lesions noted GENERAL SKIN EXAM: no rashes or lesions noted OTHER: BL stasis dermatitis Data : 06/28/21 03:07 06/28/21 03:07 A&P Assessment and plan (1) Atrial fibrillation with RVR: Appreciate cardiology recommendations, continue Cardizem. Metoprolol dose increased to 50 mg twice daily. Heart rates improving. Pending arrangements for additional assessment for underlying coronary artery disease. Unable to undergo stress testing. Appreciate cardiology recommendations. Arrangements underway for coronary angiography but needs to hold Eliquis. TTE with diffuse ectasia left ventricle, EF 45% (visually), mildly dilated right ventricle with diminished ejection fraction. Mild biatrial enlargement. Aortic valve appears minimally thickened. Technically difficult study. History of lower extremity VTE. He is on Eliquis, although clinically sure of absorption with CHF/edema. Chest CTA nondiagnostic. Could not assess VQ scan. Lower extremity duplex requested, negative for DVT but technically difficult study. Continue Eliquis. Status: Acute (2) Acute exacerbation of CHF (congestive heart failure): IV Lasix 60 mg twice daily. Edema improving. Additional assessment to exclude ischemic cardiomyopathy. Unable to undergo stress testing due to physical restrictions. Appreciate cardiology recommendations. Arrangements underway for coronary angiography but needs to hold Eliquis. TTE with diffuse ectasia left ventricle, EF 45% (visually), mildly dilated right ventricle with diminished ejection fraction. Mild biatrial enlargement. Aortic valve appears minimally thickened. Technically difficult study. Otherwise possibly tachycardia induced cardiomyopathy. Status: Acute Qualifiers: Heart failure type: combined systolic and diastolic Qualified Code(s): I50.43 - Acute on chronic combined systolic (congestive) and diastolic (congestive) heart failure (3) Leg edema: Improving with diuresis. Secondary to CHF, base possibly also chronic venous stasis, with chronic stasis dermatitis. Keeps his weight down as sleeps mostly in recliner, recently sometimes in bed with a wedge which he purchased. Status: Acute (4) CECILLE (acute kidney injury): Hold ibuprofen. So far improving, responding well to diuresis. Monitor renal function, I&O. Status: Acute Additional A&P Information Diabetes: Twice daily long-acting insulin. Reports consideration recently has been given to additional sliding scale as well. Attestations Medical Necessity Statement*: Continue admission for assessment of management of difficult to control atrial fibrillation with RVR, assessment of new cardiomyopathy, assessment for ischemic cardiomyopathy. Coding Level of Care Code Acute Horse Show Judge for Bebe Briones Diagnoses Atrial fibrillation with RVR I48.91 Acute exacerbation of CHF (congestive heart failure) I50.43 Heart failure type: combined systolic and diastolic Leg edema R60.0 CECILLE (acute kidney injury) N17.9
[2021-06-28 16:52] LABS: Glucose Point of Care 136 mg/dL (70-110)
[2021-06-28] MEDS: guaiFENesin 600 mg Tablet PO (17:23)
--- NOTE | 2021-06-28 17:50 | PC.NURSE ---
Shift Note Frequent safety and comfort rounds continue. Orders and/or nursing care completed as indicated. Patient monitored for response to intervention and treatment(s). Education provided includes safety awareness, medications, continuity of care. 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 Will continue to monitor.
--- NOTE | 2021-06-28 17:56 | P.PN_ITS ---
Subjective Subjective: Interval history: Patient is admitted to hospital with complaints of progressive shortness of breath and leg swelling. Was found to be in congestive heart failure. Echocardiographic evidence of diminished LV ejection fraction. Patient also is in atrial fibrillation with rapid ventricular rate. Seems to be responding to diuretics appropriately. Medications: Reviewed: Yes Medication Review Details: Current Medications Acetaminophen (Acetaminophen 325 Mg Tablet) 650 mg PO Q6H PRN PRN Reason: MILD PAIN Last Admin: 06/26/21 12:59 Dose: 650 mg Documented by: Allopurinol (Allopurinol 300 Mg Tablet) 300 mg PO QAM [facility] Last Admin: 06/28/21 05:36 Dose: 300 mg Documented by: Apixaban (Apixaban 5 Mg Tablet) 5 mg PO BID [facility] Last Admin: 06/27/21 17:38 Dose: 5 mg Documented by: Aspirin (Aspirin 81 Mg Ec Tablet) 81 mg PO DAILY [facility] Last Admin: 06/28/21 09:02 Dose: 81 mg Documented by: Diltiazem HCl (Diltiazem 60 Mg Tablet) 60 mg PO Q4H [facility] Last Admin: 06/28/21 16:28 Dose: 60 mg Documented by: Furosemide (Furosemide 10 Mg/Ml Sdv 10ml) 60 mg IVP Q12H [facility] Last Admin: 06/28/21 16:42 Dose: 60 mg Documented by: Guaifenesin (Guaifenesin 600 Mg Tablet) 600 mg PO BID [facility] Last Admin: 06/28/21 17:23 Dose: 600 mg Documented by: Insulin Glargine (Insulin Glargine 100 Units/1 Ml) 16 unit SUBCUT Q12H [facility] Last Admin: 06/28/21 09:00 Dose: 16 unit Documented by: Metoprolol Tartrate (Metoprolol Tartrate 25 Mg Tablet) 50 mg PO BID@0900,2100 [facility] Last Admin: 06/28/21 09:02 Dose: 50 mg Documented by: Tizanidine HCl (Tizanidine 4 Mg Tablet) 4 mg PO BID PRN PRN Reason: muscle spasticity Last Admin: 06/28/21 00:48 Dose: 4 mg Documented by: Vitals/I&O/Wt Last Vital Signs Temp 98.2 F 06/28/21 15:59 Pulse 82 06/28/21 15:59 Resp 13 06/28/21 15:59 BP 139/77 06/28/21 15:59 Pulse Ox 93 06/28/21 15:59 06/28/21 06/28/21 06/28/21 06:59 14:59 22:59 Intake Total 150 / 790 358 / 358 118 / 476 Output Total 3550 / 97279 4600 / 4600 Balance -3400 / -9860 358 / 358 -4482 / -4124 Weight last 48 hrs Weight 446 lb Weight 462 lb 4.8 oz Weight 476 lb Physical Exam Narrative: EXAM NARRATIVE: GENERAL: The patient is alert and oriented times three. Not in any acute distress. Morbidly obese HEENT: No significant pallor, icterus or lymphadenopathy.Oral cavity: There are no mucous membrane lesions. NECK: Trachea appears to be central. No masses noted. No JVD or thyromegaly appreciated. RESPIRATORY: Chest is symmetrical. No intercostals muscle retraction or any accessory muscle activation. There is no chest wall tenderness. Breath sounds are heard bilaterally. No rales or rhonchi heard. No evidence of any consolidation. BREASTS: Deferred. HEART: The heart sounds are normal. No S3 or S4. No significant murmurs. No pericardial rub ABDOMEN: Obese. Nontender. No vessel pulsations or distention. No tenderness. No organomegaly appreciated. Bowel sounds are normally heard. : Deferred. RECTAL: Deferred. LYMPHATIC: No lymphadenopathy noted in the neck. EXTREMITIES: 1+ edema both lower extremities. No cyanosis. Features of chronic venous stasis. MUSCULOSKELETAL: No acute joint deformities or swelling SKIN: There are no significant rashes or ecchymosis NEUROPSYCHIATRIC: The patient is alert and oriented x3. Appears to be in a good mood. No tremors or rigidity noted. Data : 06/28/21 03:07 06/28/21 03:07 Other Labs: Laboratory Last Values WBC 4.5 10^3/uL (4.0-10.0) 06/28/21 03:07 RBC 4.62 10^6/uL (4.1-5.3) 06/28/21 03:07 Hgb 8.9 g/dL (11.7-16.6) L 06/28/21 03:07 Hct 32.0 % (42.0-52.0) L 06/28/21 03:07 MCV 69.3 fl (80-94) L 06/28/21 03:07 MCH 19.3 pg (28.0-34.0) L 06/28/21 03:07 MCHC 27.8 g/dL (30.0-36.0) L 06/28/21 03:07 RDW 17.6 % (12.1-15.1) H 06/28/21 03:07 Plt Count 225 10^3/cmm (130-400) 06/28/21 03:07 MPV 10.0 fL (7.4-10.4) 06/28/21 03:07 Neut % (Auto) 48.7 % 06/28/21 03:07 Lymph % (Auto) 37.5 % 06/28/21 03:07 Levy % (Auto) 10.5 % 06/28/21 03:07 Eos % (Auto) 2.2 % 06/28/21 03:07 Baso % (Auto) 0.9 % 06/28/21 03:07 Neut # (Auto) 2.18 10^3/uL (1.8-7.7) 06/28/21 03:07 Lymph # (Auto) 1.7 10^3/uL (0.8-4.8) 06/28/21 03:07 Levy # (Auto) 0.5 10^3/uL (0.2-0.9) 06/28/21 03:07 Eos # (Auto) 0.1 10^3/uL (0.0-0.8) 06/28/21 03:07 Baso # (Auto) 0.0 10^3/uL (0.0-0.1) 06/28/21 03:07 Nucleated RBC % (auto) 0 % 06/28/21 03:07 Nucleated RBCs # 0.0 /100WBC 06/28/21 03:07 Sodium 139 mmol/L (136-145) 06/28/21 03:07 Potassium 3.5 mmol/L (3.5-5.1) 06/28/21 03:07 Chloride 98 mmol/L (98-107) 06/28/21 03:07 Carbon Dioxide 30 mmol/L (22-29) H 06/28/21 03:07 Anion Gap 14.5 (5-19) 06/28/21 03:07 BUN 16 mg/dL (8-23) 06/28/21 03:07 Creatinine 1.0 mg/dL (0.7-1.2) 06/28/21 03:07 GFR Calculation 75.7 mL/min (90-130) L 06/28/21 03:07 Glucose 102 mg/dL (65-115) 06/28/21 03:07 POC Glucose 136 mg/dL (70-110) H 06/28/21 16:47 Calculated Osmolality 289 mOsm/kg (285-295) 06/28/21 03:07 Calcium 8.0 mg/dL (8.5-10.5) L 06/28/21 03:07 Magnesium 2.1 mg/dL (1.7-2.3) 06/25/21 10:39 Total Bilirubin 0.6 mg/dL (0.15-1.2) 06/26/21 07:15 AST 15 U/L (0-40) 06/26/21 07:15 ALT 19 U/L (0-41) 06/26/21 07:15 Alkaline Phosphatase 114 IU/L (40-130) 06/26/21 07:15 Creatine Kinase 142 U/L (39-308) 06/25/21 10:39 Troponin T Baseline 27 ng/L (0-15) H 06/25/21 10:39 Troponin T 120 Minute 26.06 ng/L (0-15) H 06/25/21 12:43 Delta Troponin T -0.94 ABS# (0-10) L 06/25/21 12:43 Troponin T Hi Sens 6Hr 21.94 ng/L (0-15) H 06/25/21 16:56 Troponin T Hi Sens 6Hr Delta -5.06 ng/L (0-12) L 06/25/21 16:56 NT-Pro-B Natriuret Pep 2463 pg/mL (0-125) H 06/25/21 10:39 Total Protein 6.5 g/dL (6.6-8.7) L 06/26/21 07:15 Albumin 3.5 g/dL (3.5-5.2) 06/26/21 07:15 Globulin 3.0 g/dL (1.3-4.6) 06/26/21 07:15 Ur Random Urea Nitrogn 218 mg/dL 06/25/21 14:59 Urine Creatinine 26 mg/dL (39-259) L 06/25/21 14:59 A&P Assessment and plan (1) Acute exacerbation of CHF (congestive heart failure): Patient's heart failure seems to be getting compensated. The LV dysfunction, atrial arrhythmia and possible coronary artery disease are all are considerations. May continue on the current medication for the time being. BMP and CBC in the morning Status: Acute Qualifiers: Heart failure type: combined systolic and diastolic Qualified Code(s): I50.43 - Acute on chronic combined systolic (congestive) and diastolic (congestive) heart failure (2) Benign essential HTN: Currently blood pressure is a stage II. We will try to optimize the antihypertensive medications. Status: Acute (3) Atrial fibrillation with RVR: Currently the heart rate seems to be under control. May continue on the current medications. Patient is off the Eliquis. May continue the subcu Lovenox. Plan for cardiac catheterization tomorrow evening Status: Acute (4) Type 2 diabetes mellitus without complication, with long-term current use of insulin: Aggressive blood sugar control would be appropriate. Status: Acute (5) Cardiomyopathy as manifestation of underlying disease: Etiology of the cardiomyopathy is not clear. Coronary artery disease is a strong consideration especially in view of the multiple risk factors. In order to further evaluate the coronary status, it may be appropriate according to the cardiac catheterization. Because of patient's morbid obesity, stress testing will be difficult. This was discussed with the patient which is understood well. Status: Acute Attestations Medical Necessity Statement*: Patient requires continued hospital stay for close monitoring and further management Coding Level of Care Code Acute Wrapper Stitcher for [facility] Fwmacho History Detailed Exam Detailed Medical Decision Making High Complexity Diagnoses Acute exacerbation of CHF (congestive heart failure) I50.43 Heart failure type: combined systolic and diastolic Benign essential HTN I10 Atrial fibrillation with RVR I48.91 Type 2 diabetes mellitus without complication, with long-term current use of insulin E11.9; Z79.4 Cardiomyopathy as manifestation of underlying disease I43
[2021-06-28 20:23] LABS: Glucose Point of Care 148 mg/dL (70-110)
--- NOTE | 2021-06-28 22:42 | PC.NURSE ---
Received report from LILIAN Goldman. Patient resting in bed watching TV. Denies pain or needs presently. No distress observed. Instructed patient on plan for the night. Patient verbalized understanding. Discussed possible LHC for tomorrow. Patient stated, I believe that is planned for tomorrow evening around 5pm.
[2021-06-29] VITALS (18 sets, daily range): BP systolic 117–170; BP diastolic 59–85; PULSE 86–101; RESP 12–27; TEMP 36.8–37; O2SAT 92–98; BMI 48.4
[2021-06-29] MEDS: dilTIAZem 60 mg Tablet PO ×4 (00:20→12:15)
[2021-06-29 03:58] LABS: Basophils % 0.7 %; Eosinophils % 0.7 %; Hematocrit 34.4 % (42.0-52.0); Hemoglobin 9.7 g/dL (11.7-16.6); Lymphocytes # 0.4 10^3/uL (0.8-4.8); Mean Corpuscular HGB Conc 28.2 g/dL (30.0-36.0); Mean Corpuscular Hemoglobin 19.4 pg (28.0-34.0); Mean Corpuscular Volume 68.8 fl (80-94); Monocytes # 0.5 10^3/uL (0.2-0.9); Monocytes % 17.6 %; Neutrophils # 1.92 10^3/uL (1.8-7.7); Neutrophils % 67.6 %; Nucleated Red Blood Cells % 0 %; Platelet Count 222 10^3/cmm (130-400); Red Cell Distribution Width 18.1 % (12.1-15.1); White Blood Count 2.8 10^3/uL (4.0-10.0)
[2021-06-29 04:18] LABS: Anion Gap 19.9 (5-19); Blood Urea Nitrogen 19 mg/dL (8-23); Calcium 8.9 mg/dL (8.5-10.5); Carbon Dioxide 24 mmol/L (22-29); Chloride 98 mmol/L (98-107); Glucose 134 mg/dL (65-115); Osmolality Calculated 290 mOsm/kg (285-295); Potassium 3.9 mmol/L (3.5-5.1); Sodium 138 mmol/L (136-145)
[2021-06-29] MEDS: allopurinol 300 mg Tablet PO (05:05)
[2021-06-29] MEDS: FUROsemide 10 mg/mL SDV 10mL 60 MG IVP (05:05)
[2021-06-29 06:46] LABS: Glucose Point of Care 134 mg/dL (70-110)
--- NOTE | 2021-06-29 07:23 | XACV_ITS ---
Exam Room: 2 Ht: 201 cm Wt: 199 kg BSA: 3.42 m2 Gender: Male : 1960 Any Known Allergies: Other Exam Priority: Routine Procedure(s): Procedure Description: Diagnostic procedure Procedure Description: Left Heart Catheterization Procedure Description: Left ventriculography Procedure Description: Coronary Angiography Chuy LLOYD; Diagnostic Cath Status: Urgent Diagnostic Findings * Coronary angiography shows right dominance. * The left main is extremely short vessel. The LAD and the circumflex arteries were found to have almost separate ostia. * Left tender descending artery was found to be a medium to large caliber vessel which appears to wrap around the LV apex. Nose reveals no lesions were noted. The artery appears to give off a high diagonal branch, of almost equal caliber. No significant external lesions were noted.. * The circumflex artery is a medium caliber vessel with no significant stenotic lesions. * The right coronary artery is a medium to large caliber dominant vessel with no significant stenotic lesions. Minimal intimal irregularities are noted in the proximal segment of the artery. Conclusions 1. Patient is a morbid obesity presenting with atrial fibrillation and congestive heart failure.. Atypical chest pain. Underwent left heart catheterization with the left and right coronary angiogram and LV angiogram. LV angiogram was of suboptimal quality . The findings are as follows. 2. Essentially normal coronary arteries with a separate ostia for the LAD and circumflex arteries. Right coronary artery has minimal intimal irregularities. Elevated LVEDP of 29 mmHg. LV ejection fraction around 45%. Recommendations * Continue current medical management and risk factor modification. Diagnostic RX Recommendation: medical therapy and/or counseling LV EDP: 29 mmHg Ventriculography Ejection Fraction: 45.0 % Left Ventriculography Findings: * The LV gram was performed in the SAHA projection. The study was of suboptimal quality. The LV opacification was suboptimal. Elevation fraction appears to be around 45%. LVEDP was 29 mmHg. Pressures Phase:Rest AO : 108 / 70 ( 84 ) @ 8:57:00 AM 104 / 70 ( 83 ) @ 8:59:00 AM 145 / 79 ( 104 ) @ 9:11:00 AM 145 / 81 ( 104 ) @ 9:11:00 AM LV : 144 / 5 / 29 @ 9:09:00 AM 145 / 0 / 26 @ 9:10:00 AM 145 / 9 / 29 @ 9:11:00 AM Valves Phase:DefaultPhase AV : 0.0 @ 11:27:35 AM AV Mean Gradient: 0.0 @ 11:27:35 AM Clinical Evaluation EBL: 5mL-10mL Procedural Details Procedure Consent Obtained. Pre-Procedure Time Out. Identified patient by full name and date of as verbalized by the patient/guarantor. Does the consent match the physician's order: Yes. Accurate & Complete Informed Consent: Yes. Inpatient/Outpatient History & Physical on Chart: Yes. If H&P is completed, is and addenduem needed: Yes; If yes, is the addendum complete: Yes. Visualize and Verify Site with Patient/Guarantor: N/A. Relevant Radiology Images available: Yes. The risks, benefits, and alternatives of sedation and/or procedure were discussed by physician. The patient agrees to continue. Procedure started. [facility] Clinical Fraility Score: 4: Vulnerable. Rice Drier Operator Indications: LV Dysfunction/Cardiomyopathy. Chest Pain Symptom Assessment: Atypical Angina. Cardiovascular Instability: No. Correct patient, site and procedure confirmed by cath team. PERRLA. 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 Lungs clear x 5 lobes. Pre Procedural Pulses: bilateral dorsalis pedis was 2+. Pre Procedural Pulses: bilateral posterior tibial was 1+. Pre Procedural Pulses: bilateral radial was 3+. Oxygen started at 2liters/min via nasal canula. right groin was prepped with chloroprep then draped in the usual sterile fashion. right radial was prepped with chloroprep then draped in the usual sterile fashion. Physician notified. Baseline sample Acquired. HR: 89 BPM. IV Site on Arrival: 18 gauge in the left anticubital was not intact on arrival to the laborer cement gun placing, hanging out of the vein but under the venagard. A 20 gauge IV was started in the right anticubital using aseptic technique by Tong Farr RN, [facility]. IV Fluids: 0.9% NaCl at KVO. 0 mL infused prior to laborer cement gun placing. Patient's Daughter, Maira Joy is available by phone. The patient stated that he would like Dr. Vera to call at the end of the procedure to update her. Equipment: 6F - Radial. Cardiac Cath Pack. ACIST Manifold Kit Model BT [id number]. Heparinized Saline (2 units/mL), 1000 mL bag. Physician arrived. Physician scrubbed in. Immediate Pre-Procedure Time Out. Correct Patient: Yes; Correct Procedure: Yes; Correct Site: Yes; Correct Patient Position: Yes; Correct Supplies: Yes; Dried Flammable Prep: Yes; Blood Products Available: N/A;. Lidocaine 1% infiltrated to the right radial. Arterial access obtained. A 5 kenyan Mikel catheter in over the exchange wire. Multiple views taken of left coronary artery. Catheter redirected to the RCA, unable to canulate. Catheter removed over the exchange wire. A 6 kenyan 125cm JR4 Guide catheter in over wire. Multiple views taken of right coronary artery. EDP Sample taken: LV 144/5,29; HR: 95 BPM; SpO2: 99%. LV gram performed in SAHA @ 10 mL/second for a total of 30 mL. EDP Sample taken: LV 145/0,26; HR: 104 BPM; SpO2: 99%. Pullback taken: LV 145/9,29; AO 145/79(104); Mean: 0mmHg, Peak to Peak: 0mmHg, SEP: 8sec/min; HR: 97 BPM; SpO2: 98%. Patient's family updated. Catheter removed over the exchange wire. A TR Band was successful obtaining hemostatsis at the Right Radial artery insertion site. TR band placed. Hemostasis obtained. Post Procedure: Pulses reassessed and unchanged. PERRLA. 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 No VTE prophylaxis required. Medication's Wasted: Lidocaine 1% = 18 mL. Medication's Wasted: Nitro = 49.8 mg. Medication's Wasted: Heparin = 1000 Units. Total IV fluids: 50 mL. Post-op diagnosis: Cardiomyopathy, High EDP, Normal Coronaries. Complications: none. Estimated blood loss: 5mL-10mL. Responsiveness - Normal response to verbal stimuli; alert and oriented, PERRLA. Airway - Unaffected, no intervention required; spontaneous ventilation. Circulation: W/N/L, pulses unchanged. Nausea/Vomiting: No. Procedure completed. Patient transferred by wheelchair to 1st floor. Vital chart was stopped. Access Site Site: Right Radial artery Sheath Size: 6 Fr Hemostasis Method: TR Band Hemostasis Success: Successful Procedure Medications Start: 10:53 AM Stop: 10:53 AM Medication: Versed Amount: 1 mg Route: I.V. Start: 10:55 AM Stop: 10:55 AM Medication: Verapamil Amount: 5 mg Route: I.A. Start: 10:56 AM Stop: 10:56 AM Medication: Nitrogylcerin Amount: 200 mcg Route: I.A. Start: 10:58 AM Stop: 10:58 AM Medication: Versed Amount: 1 mg Route: I.V. Start: 11:00 AM Stop: 11:00 AM Medication: Versed Amount: 1 mg Route: I.V. Start: 11:01 AM Stop: 11:01 AM Medication: Fentanyl Amount: 25 mcg Route: I.V. Start: 11:01 AM Stop: 11:01 AM Medication: Heparin Amount: 5000 units Route: I.V. Start: 11:02 AM Stop: 11:02 AM Medication: Fentanyl Amount: 25 mcg Route: I.V. I, the attending physician, have reviewed and verified all procedure medications. Yes, all medications given per verbal order History/Risk Factors Hypertension: No Dyslipidemia: No Peripheral Arterial Disease (PAD): No Myocardial Infarction (ND): No Obesity: Yes Renal Disease: No Tobacco Use: Never Prior Interventions PCI: No CABG: No Valve Surgery: No Report Signatures Finalized by Dr Kira Vera MD [facility] on 07/02/2021 05:06 PM
[2021-06-29] MEDS: insulin glargine 100 units/1 mL 16 UNIT SUBCUT ×2 (08:00→20:59)
[2021-06-29] MEDS: aspirin 81 mg EC Tablet PO (08:01)
[2021-06-29] MEDS: guaiFENesin 600 mg Tablet PO (08:01)
[2021-06-29] MEDS: metoprolol tartrate 25 mg Tablet 50 MG PO ×2 (08:01→20:59)
--- NOTE | 2021-06-29 10:38 | PM.PN ---
Subjective Subjective: Interval history: The patient underwent left heart catheterization with left and right coronary angiogram and LV angiogram today. He was found to have no obstructive coronary artery disease. His LVEDP was 24 mmHg. The left circumflex artery was found to have separate ostia. The right coronary artery appeared to be a codominant vessel. Ejection fraction was around 45%. Medications: Reviewed: Yes Medication Review Details: Current Medications Acetaminophen (Acetaminophen 325 Mg Tablet) 650 mg PO Q6H PRN PRN Reason: MILD PAIN Last Admin: 06/26/21 12:59 Dose: 650 mg Documented by: Allopurinol (Allopurinol 300 Mg Tablet) 300 mg PO QAM [facility] Last Admin: 06/29/21 05:05 Dose: 300 mg Documented by: Apixaban (Apixaban 5 Mg Tablet) 5 mg PO BID [facility] Last Admin: 06/27/21 17:38 Dose: 5 mg Documented by: Aspirin (Aspirin 81 Mg Ec Tablet) 81 mg PO DAILY [facility] Last Admin: 06/29/21 08:01 Dose: 81 mg Documented by: Diltiazem HCl (Diltiazem 60 Mg Tablet) 60 mg PO Q4H [facility] Last Admin: 06/29/21 08:01 Dose: 60 mg Documented by: Furosemide (Furosemide 10 Mg/Ml Sdv 10ml) 60 mg IVP Q12H [facility] Last Admin: 06/29/21 05:05 Dose: 60 mg Documented by: Guaifenesin (Guaifenesin 600 Mg Tablet) 600 mg PO BID [facility] Last Admin: 06/29/21 08:01 Dose: 600 mg Documented by: Sodium Chloride (Sodium Chloride 0.9%) 1,000 mls @ 50 mls/hr IV .Q20H ONE Stop: 06/29/21 14:03 Insulin Glargine (Insulin Glargine 100 Units/1 Ml) 16 unit SUBCUT Q12H [facility] Last Admin: 06/29/21 08:00 Dose: 16 unit Documented by: Metoprolol Tartrate (Metoprolol Tartrate 25 Mg Tablet) 50 mg PO BID@0900,2100 [facility] Last Admin: 06/29/21 08:01 Dose: 50 mg Documented by: Tizanidine HCl (Tizanidine 4 Mg Tablet) 4 mg PO BID PRN PRN Reason: muscle spasticity Last Admin: 06/28/21 00:48 Dose: 4 mg Documented by: Vitals/I&O/Wt Last Vital Signs Temp 98.4 F 06/29/21 09:23 Pulse 88 06/29/21 09:23 Resp 18 06/29/21 09:23 BP 170/83 06/29/21 09:23 Pulse Ox 93 06/29/21 09:23 06/28/21 06/29/21 06/29/21 22:59 06:59 14:59 Intake Total 358 / 716 780 / 1496 1618 / 1618 Output Total 4600 / 4600 3700 / 8300 1000 / 1000 Balance -4242 / -3884 -2920 / -6804 618 / 618 Weight last 48 hrs Weight 430 lb 2 oz Weight 438 lb 11.2 oz Weight 446 lb Physical Exam Narrative: EXAM NARRATIVE: GENERAL: The patient is alert and oriented times three. Not in any acute distress. Morbidly obese HEENT: No significant pallor, icterus or lymphadenopathy.Oral cavity: There are no mucous membrane lesions. NECK: Trachea appears to be central. No masses noted. No JVD or thyromegaly appreciated. RESPIRATORY: Chest is symmetrical. No intercostals muscle retraction or any accessory muscle activation. There is no chest wall tenderness. Breath sounds are heard bilaterally. No rales or rhonchi heard. No evidence of any consolidation. BREASTS: Deferred. HEART: The heart sounds are normal. No S3 or S4. No significant murmurs. No pericardial rub ABDOMEN: Obese. Nontender. No vessel pulsations or distention. No tenderness. No organomegaly appreciated. Bowel sounds are normally heard. : Deferred. RECTAL: Deferred. LYMPHATIC: No lymphadenopathy noted in the neck. EXTREMITIES: 1+ edema both lower extremities. No cyanosis. Features of chronic venous stasis. MUSCULOSKELETAL: No acute joint deformities or swelling SKIN: There are no significant rashes or ecchymosis NEUROPSYCHIATRIC: The patient is alert and oriented x3. Appears to be in a good mood. No tremors or rigidity noted. Data : 06/29/21 03:18 06/29/21 03:18 Other Labs: Laboratory Last Values WBC 2.8 10^3/uL (4.0-10.0) L 06/29/21 03:18 RBC 5.00 10^6/uL (4.1-5.3) 06/29/21 03:18 Hgb 9.7 g/dL (11.7-16.6) L 06/29/21 03:18 Hct 34.4 % (42.0-52.0) L 06/29/21 03:18 MCV 68.8 fl (80-94) L 06/29/21 03:18 MCH 19.4 pg (28.0-34.0) L 06/29/21 03:18 MCHC 28.2 g/dL (30.0-36.0) L 06/29/21 03:18 RDW 18.1 % (12.1-15.1) H 06/29/21 03:18 Plt Count 222 10^3/cmm (130-400) 06/29/21 03:18 MPV 10.0 fL (7.4-10.4) 06/29/21 03:18 Neut % (Auto) 67.6 % 06/29/21 03:18 Lymph % (Auto) 13.0 % 06/29/21 03:18 Rincon % (Auto) 17.6 % 06/29/21 03:18 Eos % (Auto) 0.7 % 06/29/21 03:18 Baso % (Auto) 0.7 % 06/29/21 03:18 Neut # (Auto) 1.92 10^3/uL (1.8-7.7) 06/29/21 03:18 Lymph # (Auto) 0.4 10^3/uL (0.8-4.8) L 06/29/21 03:18 Rincon # (Auto) 0.5 10^3/uL (0.2-0.9) 06/29/21 03:18 Eos # (Auto) 0.0 10^3/uL (0.0-0.8) 06/29/21 03:18 Baso # (Auto) 0.0 10^3/uL (0.0-0.1) 06/29/21 03:18 Nucleated RBC % (auto) 0 % 06/29/21 03:18 Nucleated RBCs # 0.0 /100WBC 06/29/21 03:18 Sodium 138 mmol/L (136-145) 06/29/21 03:18 Potassium 3.9 mmol/L (3.5-5.1) 06/29/21 03:18 Chloride 98 mmol/L (98-107) 06/29/21 03:18 Carbon Dioxide 24 mmol/L (22-29) 06/29/21 03:18 Anion Gap 19.9 (5-19) H 06/29/21 03:18 BUN 19 mg/dL (8-23) 06/29/21 03:18 Creatinine 0.8 mg/dL (0.7-1.2) 06/29/21 03:18 GFR Calculation 98.0 mL/min (90-130) 06/29/21 03:18 Glucose 134 mg/dL (65-115) H 06/29/21 03:18 POC Glucose 134 mg/dL (70-110) H 06/29/21 06:33 Calculated Osmolality 290 mOsm/kg (285-295) 06/29/21 03:18 Calcium 8.9 mg/dL (8.5-10.5) 06/29/21 03:18 Magnesium 2.1 mg/dL (1.7-2.3) 06/25/21 10:39 Total Bilirubin 0.6 mg/dL (0.15-1.2) 06/26/21 07:15 AST 15 U/L (0-40) 06/26/21 07:15 ALT 19 U/L (0-41) 06/26/21 07:15 Alkaline Phosphatase 114 IU/L (40-130) 06/26/21 07:15 Creatine Kinase 142 U/L (39-308) 06/25/21 10:39 Troponin T Baseline 27 ng/L (0-15) H 06/25/21 10:39 Troponin T 120 Minute 26.06 ng/L (0-15) H 06/25/21 12:43 Delta Troponin T -0.94 ABS# (0-10) L 06/25/21 12:43 Troponin T Hi Sens 6Hr 21.94 ng/L (0-15) H 06/25/21 16:56 Troponin T Hi Sens 6Hr Delta -5.06 ng/L (0-12) L 06/25/21 16:56 NT-Pro-B Natriuret Pep 2463 pg/mL (0-125) H 06/25/21 10:39 Total Protein 6.5 g/dL (6.6-8.7) L 06/26/21 07:15 Albumin 3.5 g/dL (3.5-5.2) 06/26/21 07:15 Globulin 3.0 g/dL (1.3-4.6) 06/26/21 07:15 Ur Random Urea Nitrogn 218 mg/dL 06/25/21 14:59 Urine Creatinine 26 mg/dL (39-259) L 06/25/21 14:59 A&P Assessment and plan (1) Acute exacerbation of CHF (congestive heart failure): Patient's heart failure seems to be getting compensated. His LV dysfunction is most likely related to the arrhythmia. No significant coronary artery disease. Continue optimizing the medical treatment. Status: Acute Qualifiers: Heart failure type: combined systolic and diastolic Qualified Code(s): I50.43 - Acute on chronic combined systolic (congestive) and diastolic (congestive) heart failure (2) Benign essential HTN: Currently blood pressure is a stage II. We will try to optimize the antihypertensive medications. Status: Acute (3) Atrial fibrillation with RVR: Currently the heart rate seems to be under control. May continue on the current medications. Patient may be restarted on the Eliquis, tomorrow. Status: Acute (4) Type 2 diabetes mellitus without complication, with long-term current use of insulin: Aggressive blood sugar control would be appropriate. Status: Acute (5) Cardiomyopathy as manifestation of underlying disease: If the patient continues remain stable, may be discharged home in the morning Status: Acute Additional A&P Information Please make an appointment to be seen by the nurse practitioner in 2 weeks. Appointment with me in the office in 2 months Attestations Medical Necessity Statement*: Disposition as per the primary Coding Level of Care Code Acute Laundry Manager for g Fwd Diagnoses Acute exacerbation of CHF (congestive heart failure) I50.43 Heart failure type: combined systolic and diastolic Benign essential HTN I10 Atrial fibrillation with RVR I48.91 Type 2 diabetes mellitus without complication, with long-term current use of insulin E11.9; Z79.4 Cardiomyopathy as manifestation of underlying disease I43
--- NOTE | 2021-06-29 10:42 | W.PM.OPSUD ---
Surgery/Procedure H&P Update DATE OF PROCEDURE: June 29, 2021 DATE H&P PERFORMED: 06/29/21 H&P UPDATE INFORMATION: I have reviewed H&P completed within last 30 days and I have examined patient prior to procedure PREOP DIAGNOSIS: Congestive heart failure/ Cardiomyopathy/ASHD PRIMARY INDICATION FOR PROCEDURE: Recurrent CHF/ chest pain/ LV dysfunction PLANNED PROCEDURE: [facility] with Left and right coronary angio , LV angio and possible PCI PATIENT REASSESSED PRIOR TO SEDATION, WITH NO CHANGE NOTED: Yes PHYSICAL EXAM: alert AIRWAY EVAL/ANESTHESIA PLAN: normal airway, see other exam findings, ASA III, Monitored Anesthesia, Local Anesthesia, Risks, benefits & alternatives of sedation and/or procedure discussed and Patient agrees to continue as planned
--- NOTE | 2021-06-29 12:30 | PC.NURSE ---
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 TR band present on right wrist, no obvious hematoma. Vital signs are stable. Patient educated on movement restriction. Will continue to monitor.
--- NOTE | 2021-06-29 13:07 | PC.CHAP ---
Pastoral Care Encounter/Spiritual Assessment Type of Contact [] Declined adjusto writer operator visit [] Patient/Family/Request visit [] Outpatient visit [] Follow-up visit [] Physician referral [] Code/Alert [xx] Routine visit [] Staff referral [] Actively dying [] Patient sleeping [] Family support [] [] Out of room [] Palliative care [] [] Receiving care in room [xx] Pre-surgical visit [] Trauma [] Long length of stay [] ICU visit [] Other: Relational/Emotional Strength [xx] Patient feels connected with others/family/visitors/staff [] Distress [] Loneliness/isolation [] Abandonment Spirituality of Patient [xx] Person of Amy [xx] Attends Mormonism of their Amy [xx] Believes in Prayer [xx] Reads Bible or Shinto materials [] There are Spiritual issues to be addressed Benefits Consultant Interventions [xx] Prayer [xx] Active listening [xx] Non-anxious presence [] Spiritual/emotional support [] Crisis/trauma care [] Spiritual counseling [] Bereavement support [] Provided bereavement packet [xx] Provided Bible/devotional materials [] Provided toy/stuffed animal, coloring book to patient or family member [] Provided Communion [] Anointing/[place] [] Salvation [xx] Completed spiritual assessment [] Other: Impact on Illness or Injury [] Angry [] Fearful [] Anxious [] Often cries [] Exhaustion [] Unable to work [] Unable to attend shinto [xx] Unable to walk/stand [] Unable to read [xx] Unable to drive [] Unable to eat/drink [] Unable to sleep [] Unable to be with family [] Patient intubated [] Other: Summaryx Patient was very upbeat. Surgery has been scheduled for this date. He said his new doctor found real reason his legs were swelling so badly. The new doctor found serious heart issues his previous([place] had never tested him for. He thanks God for the changes and that treatment can be done before it's too late. Time spent with patient 5 minutes
[2021-06-29 16:12] LABS: Glucose Point of Care 167 mg/dL (70-110)
[2021-06-29] MEDS: dilTIAZem ER (24HR) 180 mg Capsule 360 MG PO (17:51)
[2021-06-29] MEDS: FUROsemide 40 mg Tablet 60 MG PO (17:54)
--- NOTE | 2021-06-29 18:12 | PC.NURSE ---
TR band removed. No hematoma or oozing present. Dressing applied. Nurse will continue to monitor
[2021-06-29 20:34] LABS: Glucose Point of Care 173 mg/dL (70-110)
--- NOTE | 2021-06-29 21:05 | PC.NURSE ---
Received report from LILIAN Goldman. Patient resting in bed watching TV. Patient is s/p [facility] without intervention. Right radial access. Dressing in place to right wrist remains c,d i with no s/s of bleeding or hematoma formation observed. Patient denies pain or needs. Excited about prospect of potential discharge in am. Instructed patient on [facility] ER. Patient verbalized complete understanding. No distress observed. Will continue to monitor.
--- NOTE | 2021-06-29 21:14 | P.PN_ITS ---
Subjective Subjective: Interval history: States he is doing well. Denies chest pain or pressure. Not short of breath. No nausea vomiting or diarrhea. Vitals/I&O/Wt Last Vital Signs Temp 98.2 F 06/29/21 19:24 Pulse 99 06/29/21 19:24 Resp 22 H 06/29/21 19:24 BP 141/80 06/29/21 19:24 Pulse Ox 97 06/29/21 19:24 06/29/21 06/29/21 06/29/21 06:59 14:59 22:59 Intake Total 780 / 1496 1854 / 1854 236 / 2090 Output Total 3700 / 8300 2800 / 2800 Balance -2920 / -6804 -946 / -946 236 / -710 Weight last 48 hrs Weight 195.101 kg Weight 198.991 kg Weight 202.302 kg Physical Exam Const: COMMON NORMALS: no acute distress, patient oriented x3 and alert GENERAL APPEARANCE: cooperative NUTRITIONAL APPEARANCE: obese ORIENTATION/CONSCIOUSNESS: Yes awake HENMT: COMMON NORMALS: oropharynx normal Neck/C-Spine: COMMON NORMALS: no JVD Resp: COMMON NORMALS: normal respiratory effort and clear to auscultation bilaterally AUSCULTATION: clear to auscultation bilaterally Cardio: COMMON NORMALS: no JVD, regular rhythm, S1 normal heart sound present, S2 normal heart sound present and No murmurs present (Cardio) RATE: tachycardic RHYTHM: regular rhythm and abnormal rhythm irregularly irregular HEART SOUNDS: S1 normal heart sound present and S2 normal heart sound present GI: COMMON NORMALS: Normal to inspection, nondistended, normoactive bowel sounds present, Soft to palpation and non-tender PALPATION: Yes Soft to palpation Extremity: COMMON NORMALS: no joint enlargement GENERAL: Yes edema (Improving 2-3+ BL, no weeping) Neuro: COMMON NORMALS: patient oriented x3 and moves all extremities SENSORIUM/ORIENTATION: Yes alert Skin: COMMON NORMALS: no rashes or lesions noted GENERAL SKIN EXAM: no rashes or lesions noted OTHER: BL stasis dermatitis Data : 06/29/21 03:18 06/29/21 03:18 A&P Assessment and plan (1) Atrial fibrillation with RVR: Switch to long-acting Cardizem 360 mg. Continue metoprolol. No significant coronary disease on coronary angiography. TTE with diffuse ectasia left ventricle, EF 45% (visually), mildly dilated right ventricle with diminished ejection fraction. Mild biatrial enlargement. Aortic valve appears minimally thickened. Technically difficult study. History of lower extremity VTE. He is on Eliquis, although clinically sure of absorption with CHF/edema. Chest CTA nondiagnostic. Could not assess VQ scan. Lower extremity duplex requested, negative for DVT but technically difficult study. Continue Eliquis. Status: Acute (2) Acute exacerbation of CHF (congestive heart failure): Switch to oral Lasix. Additional assessment to exclude ischemic cardiomyopathy. Unable to undergo stress testing due to physical restrictions. Appreciate cardiology recommendations. Arrangements underway for coronary angiography but needs to hold Eliquis. TTE with diffuse ectasia left ventricle, EF 45% (visually), mildly dilated right ventricle with diminished ejection fraction. Mild biatrial enlargement. Aortic valve appears minimally thickened. Technically difficult study. Otherwise possibly tachycardia induced cardiomyopathy. Status: Acute Qualifiers: Heart failure type: combined systolic and diastolic Qualified Code(s): I50.43 - Acute on chronic combined systolic (congestive) and diastolic (congestive) heart failure (3) Leg edema: Improving with diuresis. Secondary to CHF, base possibly also chronic venous stasis, with chronic stasis dermatitis. Keeps his weight down as sleeps mostly in recliner, recently sometimes in bed with a wedge which he purchased. Status: Acute (4) CECILLE (acute kidney injury): Recheck renal function in the morning. Hold ibuprofen. So far improving, responding well to diuresis. Monitor renal function, I&O. Status: Acute Additional A&P Information Diabetes: Twice daily long-acting insulin. Reports consideration recently has been given to additional sliding scale as well. Attestations Medical Necessity Statement*: Continue admission for optimization of control of A. fib with RVR, transition to oral medication with monitoring, transition to oral Lasix for treatment of CHF with tentative discharge home tomorrow. Coding Level of Care Code Acute Psychologist Counseling for Bebe Briones Diagnoses Atrial fibrillation with RVR I48.91 Acute exacerbation of CHF (congestive heart failure) I50.43 Heart failure type: combined systolic and diastolic Leg edema R60.0 CECILLE (acute kidney injury) N17.9
[2021-06-30] VITALS (10 sets, daily range): BP systolic 116–144; BP diastolic 69–85; PULSE 88–96; RESP 16–25; TEMP 36.1–37.2; O2SAT 89–98
--- NOTE | 2021-06-30 01:09 | PC.NURSE ---
Patient caught IV site in blankets and removed IV. Catheter found intact. Covered site with 2x2 and coban. Patient refusing to have IV replaced stating, I am going home tomorrow. Instructed patient on possible need for IV access. Patient verbalized understanding but decided He does not need it. Will continue to monitor.
[2021-06-30 04:13] LABS: Hematocrit 35.4 % (42.0-52.0); Hemoglobin 9.7 g/dL (11.7-16.6); Lymphocytes # 0.9 10^3/uL (0.8-4.8); Lymphocytes % 30.6 %; Mean Corpuscular HGB Conc 27.4 g/dL (30.0-36.0); Mean Corpuscular Volume 69.4 fl (80-94); Mean Platelet Volume 10.3 fL (7.4-10.4); Monocytes # 0.6 10^3/uL (0.2-0.9); Monocytes % 17.9 %; Neutrophils # 1.54 10^3/uL (1.8-7.7); Neutrophils % 50.2 %; Nucleated Red Blood Cells % 0 %; Platelet Count 222 10^3/cmm (130-400); Red Cell Distribution Width 18.3 % (12.1-15.1); White Blood Count 3.1 10^3/uL (4.0-10.0)
[2021-06-30 04:38] LABS: Blood Urea Nitrogen 20 mg/dL (8-23); Calcium 7.7 mg/dL (8.5-10.5); Carbon Dioxide 27 mmol/L (22-29); Chloride 94 mmol/L (98-107); Glomerular Filtration Rate 85.5 mL/min (90-130); Glucose 158 mg/dL (65-115); Osmolality Calculated 282 mOsm/kg (285-295); Sodium 133 mmol/L (136-145)
[2021-06-30 04:41] LABS: Anion Gap 15.8 (5-19); Potassium 3.8 mmol/L (3.5-5.1)
[2021-06-30] MEDS: allopurinol 300 mg Tablet PO (05:01)
--- NOTE | 2021-06-30 05:27 | PC.NURSE ---
Shift Note Frequent safety and comfort rounds continue. Orders and/or nursing care completed as indicated. Patient monitored for response to intervention and treatment(s). Education provided includes oral Lasix. Patient verbalized complete understanding. Dressing to right wrist remains c,d,i at this time with no s/s of bleeding or hematoma formation observed. Patient denies pain or needs. No distress observed. Will continue to monitor.
[2021-06-30 06:41] LABS: Glucose Point of Care 157 mg/dL (70-110)
--- NOTE | 2021-06-30 09:12 | PM.PN ---
Subjective Subjective: Interval history: Patient underwent coronary angiogram yesterday and was found to have no obstructive coronary artery disease. LVEDP of 24. Procedure was done via right radial approach by Dr. Vera. LVEF around 45%. Codominant circulation and left circumflex with a separate ostia. Patient feels well and denies any complaints. He is -5 L from yesterday and length of stay -23 L about 42 pounds during hospitalization. Patient has remained in atrial fibrillation but has been rate controlled. He is eager to be discharged and go home. Medications: Reviewed: Yes Vitals/I&O/Wt Last Vital Signs Temp 99.0 F 06/30/21 03:15 Pulse 90 06/30/21 04:18 Resp 18 06/30/21 03:15 BP 125/69 06/30/21 03:15 Pulse Ox 89 L 06/30/21 01:31 06/29/21 06/30/21 06/30/21 22:59 06:59 14:59 Intake Total 236 / 2090 Output Total 4350 / 7150 Balance 236 / -710 -4350 / -5060 Weight last 48 hrs Weight 434 lb 1.6 oz Weight 430 lb 2 oz Weight 438 lb 11.2 oz Physical Exam Narrative: EXAM NARRATIVE: GENERAL: obese man sitting in bed in no acute distress HEENT: Pupils equal round reactive to light. No pallor or icterus. NECK: +JVD, No carotid bruit. CARDIOVASCULAR SYSTEM: S1-S2 irregular. No murmur rubs or gallops. RESPIRATORY SYSTEM: Chest clear to auscultation. No wheezes rhonchi or rubs heard. ABDOMEN: Soft, nontender and nondistended. Normal bowel sounds present. EXTREMITIES: 1+ edema. Bilateral leg signs of chronic venous stasis present. Right radial access site without significant bruising or hematoma PRESCHOOL ASSISTANT PRINCIPAL: Patient is alert oriented ?3. No focal neurological deficits. Data : 06/30/21 03:23 06/30/21 03:23 A&P Assessment and plan (1) Atrial fibrillation with RVR: Remains rate controlled with Cardizem 360 mg p.o. and metoprolol tartrate 50 mg twice a day -Eliquis has been resumed Status: Acute (2) Acute exacerbation of CHF (congestive heart failure): HFmrEF with RV dysfunction -Nonischemic cardiomyopathy -Continue Lasix 60 mg p.o. twice daily on discharge. -May need to add spironolactone outpatient at the time of follow-up. -Advised the importance of salt and fluid restriction and daily weight. -Advised to take additional half pill of Lasix if he notices weight gain of more than 3 pounds in a day prior to his follow-up. Status: Acute Qualifiers: Heart failure type: combined systolic and diastolic Qualified Code(s): I50.43 - Acute on chronic combined systolic (congestive) and diastolic (congestive) heart failure (3) Leg edema: Improved with diuresis Status: Acute Additional A&P Information Morbid obesity Suspect MICHELLE and OHS: Patient declines as he does not want to use CPAP as an outpatient. Insulin-dependent diabetes mellitus Gout Thank you for allowing me to participate in patient's care. Please feel free to call with questions or concerns. Attestations Medical Necessity Statement*: Stable to be discharged home from cardiac standpoint Time Spent in Patient Care: 16 - 35 minutes (>than 50% of time spent in counselling and/or direct pt care on unit). Coding Level of Care Code Acute Auricular Detoxification Specialist for Bebe Briones Diagnoses Atrial fibrillation with RVR I48.91 Acute exacerbation of CHF (congestive heart failure) I50.43 Heart failure type: combined systolic and diastolic Leg edema R60.0
[2021-06-30] MEDS: metoprolol tartrate 25 mg Tablet 50 MG PO (09:18)
[2021-06-30] MEDS: FUROsemide 40 mg Tablet 60 MG PO (09:18)
[2021-06-30] MEDS: apixaban 5 mg Tablet PO ×2 (09:18→18:18)
[2021-06-30] MEDS: aspirin 81 mg EC Tablet PO (09:19)
[2021-06-30] MEDS: guaiFENesin 600 mg Tablet PO ×2 (09:19→18:18)
[2021-06-30] MEDS: insulin glargine 100 units/1 mL 16 UNIT SUBCUT (09:22)
--- NOTE | 2021-06-30 09:44 | PC.SOCIAL ---
IMM Update pg 2 of IMM updated and reviewed w/ patient. Copy provided and copy placed in chart.
[2021-06-30 12:18] LABS: Glucose Point of Care 205 mg/dL (70-110)
--- NOTE | 2021-06-30 16:40 | P.DS_ITS ---
Discharge Providers Date of Admission: 06/27/21 11:14 Date of Discharge: June 30, 2021 Attending Provider at Admission: Jag Le Attending Provider at Discharge: Jag Le Primary Care Provider: Wali Castillo DO Diagnoses at Discharge Discharge Diagnosis (1) Atrial fibrillation with RVR: Status: Acute (2) Acute exacerbation of CHF (congestive heart failure): Status: Acute Qualifiers: Heart failure type: combined systolic and diastolic Qualified Code(s): I50.43 - Acute on chronic combined systolic (congestive) and diastolic (congestive) heart failure (3) Leg edema: Status: Acute Reason for Visit Reason for Visit: SOB/FLUID IN LEGS Hospital Course Hospital Course Pleasant 61-year-old gentleman was admitted for assessment of management of difficult to control A. fib with RVR and treatment of acute CHF, initially on Cardizem drip, with persistent significant elevation of heart rate with ambulation, up into 130s-140s. Initial tachycardia at rest gradually improved with Cardizem drip. Subsequently transitioned to Cardizem p.o. 60 mg every at first, but with inadequate control, dose had to be increased to 60 mg every 4 hours, then metoprolol added as well. With still inadequate control and also with finding of new cardiomyopathy, ejection fraction decreased down to 45%, without prior history, as well as inability to obtain stress test cardiology was consulted. To exclude ischemic cardiomyopathy he underwent assessment by coronary angiography, with finding of no significant obstructive coronary artery disease. 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 He continues to diurese well with Lasix 60 mg twice daily IV. Remained in negative balance, with significant improvement in lower extremity edema, exertional tolerance. Mild CECILLE noted on presentation, creatinine 1.4, has resolved. Plea se follow-up renal function in office. Please follow-up control of A. fib with RVR, volume status. Heart rates have significantly improved. He had a mild episode lightheadedness on standing up today. Discussed with him orthostatic precautions. Discussed keeping track of his blood pressures and heart rates at least twice daily. In case of decreasing blood pressures or heart rates into ranges that are too low, instructed to hold medication and contact his cardiology or primary provider's office. Physical Exam Const: COMMON NORMALS: no acute distress, patient oriented x3 and alert GENERAL APPEARANCE: cooperative NUTRITIONAL APPEARANCE: obese ORIENTATION/CONSCIOUSNESS: Yes awake HENMT: COMMON NORMALS: oropharynx normal Neck/C-Spine: COMMON NORMALS: no JVD Resp: COMMON NORMALS: normal respiratory effort and clear to auscultation bilaterally AUSCULTATION: clear to auscultation bilaterally Cardio: COMMON NORMALS: no JVD, S1 normal heart sound present, S2 normal heart sound present and No murmurs present (Cardio) RHYTHM: abnormal rhythm irregularly irregular HEART SOUNDS: S1 normal heart sound present and S2 normal heart sound present GI: COMMON NORMALS: Normal to inspection, nondistended, normoactive bowel sounds present, Soft to palpation and non-tender PALPATION: Yes Soft to palpation Extremity: COMMON NORMALS: no joint enlargement and no pedal edema GENERAL: Yes edema (improving 2+ BL, no weeping) Neuro: COMMON NORMALS: patient oriented x3 and moves all extremities SENSORIUM/ORIENTATION: Yes alert Skin: COMMON NORMALS: no rashes or lesions noted GENERAL SKIN EXAM: no rashes or lesions noted OTHER: BL stasis dermatitis Discharge Data Data Completed and Pending: Completed Studies During Hospitalization Category Date Time Status CT angio chest PE protcl [id number] Stat Cat Scan 06/25/21 12:35 Completed XR chest 1V rosa ble [id number] Stat Exams 06/25/21 10:03 [place] [id number] Routin e Ultrasound 06/26/21 07:58 Completed CV. 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 Routin e Exams 06/29/21 07:23 Ordered Sestamibi Stress Test Request Routi ne Exams 06/27/21 11:14 Stop Req Basic Metabolic P jaimee AM LABS Lab 07/01/21 04:00 Ordered Basic Metabolic P jaimee AM LABS Lab 07/02/21 04:00 Ordered Complete Blood Co unt w/Auto AM LABS Lab 07/01/21 04:00 Ordered Complete Blood Co unt w/Auto AM LABS Lab 07/02/21 04:00 Ordered Labs from last 24 hours 06/30/21 06/30/21 06/30/21 11:41 06:36 03:23 WBC RBC Hgb Hct MCV MCH MCHC RDW Plt Count MPV Neut % (Auto) Lymph % (Auto) Sutton % (Auto) Eos % (Auto) Baso % (Auto) Neut # (Auto) Lymph # (Auto) Sutton # (Auto) Eos # (Auto) Baso # (Auto) Nucleated RBC % (a uto) Nucleated RBCs # Sodium 133 L Potassium 3.8 Chloride 94 L Carbon Dioxide 27 Anion Gap 15.8 BUN 20 Creatinine 0.9 GFR Calculation 85.5 L Glucose 158 H POC Glucose 205 H 157 H Calculated Osmolal ity 282 L Calcium 7.7 L 06/30/21 06/29/21 03:23 20:27 WBC 3.1 L RBC 5.10 Hgb 9.7 L Hct 35.4 L MCV 69.4 L MCH 19.0 L MCHC 27.4 L RDW 18.3 H Plt Count 222 MPV 10.3 Neut % (Auto) 50.2 Lymph % (Auto) 30.6 Sutton % (Auto) 17.9 Eos % (Auto) 0.0 Baso % (Auto) 1.0 Neut # (Auto) 1.54 L Lymph # (Auto) 0.9 Sutton # (Auto) 0.6 Eos # (Auto) 0.0 Baso # (Auto) 0.0 Nucleated RBC % (a uto) 0 Nucleated RBCs # 0.0 Sodium Potassium Chloride Carbon Dioxide Anion Gap BUN Creatinine GFR Calculation Glucose POC Glucose 173 H Calculated Osmolal ity Calcium Vitals: Last Vital Signs Temp 97.2 F L 06/30/21 08:00 Pulse 96 06/30/21 08:00 Resp 18 06/30/21 08:00 BP 144/80 06/30/21 08:00 Pulse Ox 98 06/30/21 08:00 Discharge Plan Discharge Patient Disposition: Home Condition: Stable Prescriptions: New DILT-XR 180 mg Capsule,Ext.Rel 24h Degradable 360 mg PO Q24H Qty: 90 RF: 0 Mucinex 600 mg Tablet Extended Release 12hr 600 mg PO BID PRN (Reason: congestion) Qty: 14 RF: 2 metoprolol tartrate 50 mg tablet 50 mg PO BID@0900,2100 Qty: 180 RF: 0 Continued aspirin 81 mg tablet,delayed release (DR/EC) 81 mg PO DAILY RF: 0 magnesium L-lactate [Magtab] 84 mg tablet extended release 84 mg PO BID 30 Days Qty: 60 RF: 5 tizanidine 4 mg tablet 4 mg PO BID PRN (Reason: muscle spasticity) Qty: 60 RF: 0 allopurinol 300 mg tablet 300 mg PO QAM RF: 0 Hold Instructions: see PCP Florencia Alexanderar U-100 Insulin 100 unit/mL (3 mL) insulin pen 16 unit SUBCUT BID RF: 0 Eliquis 5 mg Tablet 5 mg PO BID 30 Days Qty: 60 RF: 2 potassium chloride 20 mEq tablet extended release 20 meq PO DAILY RF: 0 Changed Lasix 40 mg tablet 60 mg PO BID Qty: 0 RF: 0 Discontinued ibuprofen 200 mg Tablet 600 mg PO Q8H PRN (Reason: Pain) RF: 0 diltiazem HCl 240 mg capsule,extended release 24 hr 240 mg PO QAM RF: 0 Referrals: Wali Castillo DO [Primary Care Provider] - 4-7 days Kanchan Lewis MD [Physician] - 2 weeks Discharge Diet: Cardiac and Low Salt Discharge Activity: Increase activity as tolerated and Limit activity as instructed Patient Instructions: Metoprolol (By mouth), Diltiazem (By mouth), Heart Failure (GEN), A-fib (Atrial Fibrillation) (GEN) Activity Restrictions/Additional Instructions: Please maintain orthostatic precautions as discussed. Low rise slowly from laying to sitting and sitting to standing. In case you get dizzy sit down or lie down immediately. Monitor your heart rate and blood pressure several times a day. Measure your weight daily. Write down values. In case your heart rates are below 60, or blood pressure is low, below 90 top number or below 60 bottom number, hold metoprolol and contact your cardiology office or primary care office. Indication notice more than 3 pounds in a day weight gain, take additional half a pill of Lasix. Discharge Attestations Time Spent in Discharge Care*: greater than 30 min Quality Metrics Clinical Quality Measures During this hospital stay, did patient experience: None Coding Level of Care Code Acute Chg DC note Diagnoses Atrial fibrillation with RVR I48.91 Acute exacerbation of CHF (congestive heart failure) I50.43 Heart failure type: combined systolic and diastolic Leg edema R60.0
[2021-06-30] MEDS: dilTIAZem ER (24HR) 180 mg Capsule 360 MG PO (18:18)
== END 2021-06-30 18:50 | disposition home or self-care (01) | DRG 286 ==
LOC: ER 14:40 → ER IP 18:59 → CSU 06-26 15:52
PROVIDERS: Internal Medicine Cardiovascular Disease; Admitting Provider Internal Medicine; Emergency Provider Family Medicine; PCP Family Medicine; Visit Provider Internal Medicine
PROC: 4A023N7 Measurement of Cardiac Sampling and Pressure, Left Heart, Percutaneous Approach (ICD-10-PCS; principal; 2021-06-29 10:00)
DX: I48.91 Unspecified atrial fibrillation (principal); I50.43 Acute on chronic combined systolic (congestive) and diastolic (congestive) heart failure; N17.9 Acute kidney failure, unspecified; E66.2 Morbid (severe) obesity with alveolar hypoventilation; Z68.42 Body mass index [BMI] 45.0-49.9, adult; I11.0 Hypertensive heart disease with heart failure; I42.8 Other cardiomyopathies; E11.42 Type 2 diabetes mellitus with diabetic polyneuropathy; M10.9 Gout, unspecified; Z98.84 Bariatric surgery status; D64.9 Anemia, unspecified; I87.2 Venous insufficiency (chronic) (peripheral)
CPT/HCPCS: 36415; 36416; 71045; 71275; 76770; 76857; 80048; 80053; 82550; 82570; 82962; 83735; 83880; 84484; 84540; 85025; 93005; 93452; 93458; 93970; 96365; 96366; 96372; 96375; 96376; 99291; C1769; C1887; C1894; C8929; G0378; J1644; J1815; J1940; J2250; J3010; J3490; J7030; Q9956; Q9967

== ENCOUNTER → 2021-07-11 12:15 | Outpatient (BNVA) | payer MEDICARE, SELFPAY | PROVIDERS: PCP Family Medicine; Visit Provider Internal Medicine Cardiovascular Disease | DX: I50.33 Acute on chronic diastolic (congestive) heart failure (principal); I43 Cardiomyopathy in diseases classified elsewhere; R06.02 Shortness of breath; I48.91 Unspecified atrial fibrillation; D50.8 Other iron deficiency anemias; E11.42 Type 2 diabetes mellitus with diabetic polyneuropathy | CPT/HCPCS: 80048; 83880 ==

== ENCOUNTER → 2021-07-13 10:23 | Outpatient (BNVA) | payer MEDICARE, SELFPAY | PROVIDERS: PCP Family Medicine; Visit Provider Internal Medicine Cardiovascular Disease | DX: D50.8 Other iron deficiency anemias (principal) | CPT/HCPCS: 85025 ==

== ENCOUNTER → 2021-09-04 15:14 | Outpatient (BNVA) | payer MEDICARE, SELFPAY | PROVIDERS: PCP Family Medicine; Visit Provider Family Medicine | DX: E11.65 Type 2 diabetes mellitus with hyperglycemia (principal); I43 Cardiomyopathy in diseases classified elsewhere; I89.0 Lymphedema, not elsewhere classified; B37.2 Candidiasis of skin and nail; E11.42 Type 2 diabetes mellitus with diabetic polyneuropathy; I48.91 Unspecified atrial fibrillation; D50.9 Iron deficiency anemia, unspecified | CPT/HCPCS: 80053; 82728; 83036; 83550; 83735; 84466 ==

== ENCOUNTER 2021-09-25 11:26 | Outpatient (CLI) | payer MEDICARE, SELFPAY ==
--- NOTE | 2021-09-25 11:15 | USCV_ITS ---
Juan Covarrubias Age: 61 Gender: M : 1960 Exam Date: 09/25/2021 11:31 Ordering Phys: Nickolas Shepherd DPM Technologist: Belkys Thornton Exam Location: [facility] – [place]_ Indication: PRE OP RIGHT LEFT Brachial 143.00 mmHg Brachial 142.00 mmHg Pressure (mmHg) Waveform Pressure (mmHg) Waveform 189.00 YARD PERSON 189.00 DPA 1.32 Ankle/Brachial Index 151.00 Pre-Exercise Toe Pressure 194.00 1.06 Pre-Exercise Toe/Brachial Index 1.36 FINDINGS RIGHT THIGH >220 LEFT YARD PERSON AND DPA >220 Right GEGE of 1.32. Left ankle vessels are noncompressible Normal resting TBI bilaterally of 1.06 on the right side and 1.36 on the left side PVR waveforms showing blunting of dicrotic notch bilaterally CONCLUSIONS 1. Normal resting GEGE and TBI on the right side 2. Noncompressible ankle vessels with supranormal resting TBI on the left side. Features are suggestive of extensive arterial sclerosis bilaterally with possibly no significant arterial obstruction Dr Kira Vera MD [facility] (Electronically Signed) Final Date: 26 September 2021 23:03 S
== END 2021-09-25 11:27 | disposition home or self-care (01) ==
PROVIDERS: PCP Family Medicine; Visit Provider Podiatrist Foot & Ankle Surgery
DX: R09.89 Other specified symptoms and signs involving the circulatory and respiratory systems (principal)
CPT/HCPCS: 93923

== ENCOUNTER → 2021-12-04 09:19 | Outpatient (BNVA) | payer MEDICARE, SELFPAY | PROVIDERS: PCP Family Medicine; Visit Provider Family Medicine | DX: E11.42 Type 2 diabetes mellitus with diabetic polyneuropathy (principal); E11.65 Type 2 diabetes mellitus with hyperglycemia; I89.0 Lymphedema, not elsewhere classified; I50.20 Unspecified systolic (congestive) heart failure | CPT/HCPCS: 80053; 80061; 83036; 84443; 85025 ==

== ENCOUNTER 2021-12-05 12:35 | Outpatient (CLI) | payer MEDICARE, SELFPAY ==
[2021-12-05 12:40] VITALS: BMI 43.8
--- NOTE | 2021-12-05 12:40 | USCV_ITS ---
Dobutamine Stress Echo Juan Covarrubias Age: 61 Gender: M : 1960 Exam Date: 12/05/2021 13:47 Ordering Phys: Kira Vera MD ([email or web address]) Technologist: Jacob Nielson [place] [facility] [place]: diastolic chf Rhythm: Sinus Patient History: afib Cardiac Medications: Medications in past 24 hours: Contrast: Optison Total Dose (mL): 8 Stress Results Protocol: Pharmacologic Peak Dose (???g/kg/min): Duration (min:sec): 5:55 Atropine:(mg) Target HR: 134 Double Product: 36321 Resting HR: 87 Resting BP: 105 / 72 Peak HR: 152 Peak BP: 164 / 78 Max Predicted HR: 158 96 % Max Predicted HR Stress Summary: The hemodynamic response to stress was normal. BP Response: Normal Reason for Termination: Protocol complete Cardiac Symptoms: None ECG Analysis Resting EKG: Please see separate report Stress EKG: Please see separate report Arrhythmia: Please see separate report MEASUREMENTS (Male/Female) Normal Values FINDINGS The resting echocardiogram revealed normal LV size with borderline low ejection fraction 50%. Relative hypokinesia of the septum and anteroseptal septal segments are noted. With the low and peak dobutamine infusion there was no augmentation of all the segments except the septal and anteroseptal segments which remain hypokinetic relative with infusion. CONCLUSIONS 1. Borderline abnormal echocardiographic response to dobutamine infusion, may suggest schemia in the distribution of the anterior descending artery . 2. For the EKG response to dobutamine infusion , please refer to separate report Dr Kira Vera MD [facility] (Electronically Signed) Final Date: 06 December 2021 00:59 S
--- NOTE | 2021-12-05 12:41 | ECG_ITS ---
[facility] Test Date: 2021-12-05 Pat Name: Juan Covarrubias Department: Room: Gender: Male Census Taker: Inga Luevano : 1960 Requested By: Kira Vera Order Number: [id number] Milton MD: Kira Vera M.D. Interpretive Statements NAME OF STUDY: DOBUTAMINE STRESS ECHOCARDIOGRAM INDICATION: Diastolic chf, PROCEDURE: At the baseline, the blood pressure was 105/72 with a heart rate of 95. The electrocardiogram showed atrial fibrillation with a ventricular response rate of 95 bpm. Poor R wave progression. The dobutamine was infused over a period of 5 minutes and 55 seconds. The maximum heart rate obtained was 143 (97% of the maximum predicted heart rate). The blood pressure at that time was 156/67 mmHg. The patient did not have any chest pain or any significant electrocardiogram changes with the dobutamine infusion. No new arrhythmias are noted on the monitor the physical examination remained unchanged. No arrhythmias were seen on the monitor. During the recovery phase, the patient did not have any specific symptoms. The blood pressure at the end of the recovery phase was 119/64 with a heart rate of 104 per minute. CONCLUSION: 1. Normal EKG response to dobutamine infusion 2. No dobutamine induced chest pain or cardiac arrhythmias 3. Normal heart rate and blood pressure response to dobutamine infusion 4. Sestamibi/Sestamibi perfusion scan pending; see separate report. Electronically Signed On 12-07-2021 7:14:25 CDT by Kira Vera M.D. [email or web address]
[2021-12-05] MEDS: DOBUTtamine 200 MG in sodium chloride 0.9% 34 ML 27 MG IV (13:53)
[2021-12-05] MEDS: perflutren protein-a microsphr 0.22 mg/mL SDV 3 mL IV (14:14)
[2021-12-05 14:20] VITALS: BP 119/64; PULSE 104
== END 2021-12-05 12:36 | disposition home or self-care (01) ==
LOC: CDL 12:39
PROVIDERS: PCP Family Medicine; Visit Provider Internal Medicine Cardiovascular Disease
DX: I50.30 Unspecified diastolic (congestive) heart failure (principal)
CPT/HCPCS: 93017; 93350; 93352; J1250; J7050; Q9956

== ENCOUNTER → 2021-12-12 14:57 | Outpatient (BNVA) | payer MEDICARE, SELFPAY | PROVIDERS: PCP Family Medicine; Visit Provider Internal Medicine Cardiovascular Disease | DX: I48.91 Unspecified atrial fibrillation (principal); I50.33 Acute on chronic diastolic (congestive) heart failure; I42.0 Dilated cardiomyopathy; E11.42 Type 2 diabetes mellitus with diabetic polyneuropathy; D50.8 Other iron deficiency anemias; D64.9 Anemia, unspecified; Z79.01 Long term (current) use of anticoagulants; Z79.4 Long term (current) use of insulin; M79.89 Other specified soft tissue disorders | CPT/HCPCS: 80048; 83880; 99214 ==

== ENCOUNTER → 2022-01-15 08:51 | Outpatient (BNVA) | payer MEDICARE, SELFPAY | PROVIDERS: PCP Family Medicine; Visit Provider Podiatrist Foot & Ankle Surgery | DX: E11.42 Type 2 diabetes mellitus with diabetic polyneuropathy (principal); M20.41 Other hammer toe(s) (acquired), right foot; M20.42 Other hammer toe(s) (acquired), left foot; L60.3 Nail dystrophy; I73.9 Peripheral vascular disease, unspecified | CPT/HCPCS: 11721; 99213 ==

== ENCOUNTER 2022-01-15 09:37 | Outpatient (CLI) | payer MEDICARE, SELFPAY ==
[2022-01-15 10:57] LABS: Anion Gap 15.9 (5-19); Blood Urea Nitrogen 36 mg/dL (8-23); Calcium 8.9 mg/dL (8.5-10.5); Carbon Dioxide 25 mmol/L (22-29); Chloride 104 mmol/L (98-107); Glomerular Filtration Rate 61.3 mL/min (90-130); Glucose 183 mg/dL (65-115); NT Pro B Type Natriuretic Pept 1128 pg/mL (0-125); Osmolality Calculated 303 mOsm/kg (285-295); Potassium 4.9 mmol/L (3.5-5.1); Sodium 140 mmol/L (136-145)
== END 2022-01-15 09:38 | disposition home or self-care (01) ==
LOC: LAB 09:45
PROVIDERS: PCP Family Medicine; Visit Provider Internal Medicine Cardiovascular Disease
DX: I42.0 Dilated cardiomyopathy (principal); E11.65 Type 2 diabetes mellitus with hyperglycemia; I50.33 Acute on chronic diastolic (congestive) heart failure; M79.89 Other specified soft tissue disorders
CPT/HCPCS: 80048; 83880

== ENCOUNTER → 2022-02-11 10:40 | Outpatient (BNVA) | payer MEDICARE, SELFPAY | PROVIDERS: PCP Family Medicine; Visit Provider Nurse Practitioner Family | DX: I50.33 Acute on chronic diastolic (congestive) heart failure (principal) | CPT/HCPCS: 36415; 80048; 83880; 99214 ==

== ENCOUNTER → 2022-04-23 07:52 | Outpatient (BNVA) | payer MEDICARE, SELFPAY | PROVIDERS: PCP Family Medicine; Visit Provider Podiatrist Foot & Ankle Surgery | DX: E11.8 Type 2 diabetes mellitus with unspecified complications (principal); E11.42 Type 2 diabetes mellitus with diabetic polyneuropathy; M20.41 Other hammer toe(s) (acquired), right foot; M20.42 Other hammer toe(s) (acquired), left foot; L60.3 Nail dystrophy; I73.9 Peripheral vascular disease, unspecified; Z79.4 Long term (current) use of insulin | CPT/HCPCS: 11056; 11721 ==

== ENCOUNTER → 2022-06-04 08:43 | Outpatient (BNVA) | payer MEDICARE, SELFPAY | PROVIDERS: PCP Family Medicine; Visit Provider Family Medicine | DX: D50.9 Iron deficiency anemia, unspecified (principal); E11.622 Type 2 diabetes mellitus with other skin ulcer; L97.909 Non-pressure chronic ulcer of unspecified part of unspecified lower leg with unspecified severity; E11.9 Type 2 diabetes mellitus without complications; Z79.4 Long term (current) use of insulin; I48.91 Unspecified atrial fibrillation | CPT/HCPCS: 80053; 80061; 83036; 85025 ==

== ENCOUNTER → 2022-06-19 13:46 | Outpatient (BNVA) | payer MEDICARE, SELFPAY | PROVIDERS: PCP Family Medicine; Visit Provider Internal Medicine Cardiovascular Disease | DX: I42.8 Other cardiomyopathies (principal); E11.9 Type 2 diabetes mellitus without complications; Z79.4 Long term (current) use of insulin; D50.8 Other iron deficiency anemias; M10.9 Gout, unspecified; R60.9 Edema, unspecified | CPT/HCPCS: 99214 ==

== ENCOUNTER → 2022-09-20 09:31 | Outpatient (BNVA) | payer MEDICARE, SELFPAY | PROVIDERS: PCP Family Medicine; Visit Provider Family Medicine | DX: E11.9 Type 2 diabetes mellitus without complications (principal); I50.33 Acute on chronic diastolic (congestive) heart failure; R60.9 Edema, unspecified; Z79.4 Long term (current) use of insulin; I50.20 Unspecified systolic (congestive) heart failure; M25.562 Pain in left knee; L03.115 Cellulitis of right lower limb; L97.919 Non-pressure chronic ulcer of unspecified part of right lower leg with unspecified severity; I48.91 Unspecified atrial fibrillation | CPT/HCPCS: 80048; 83036; 83880 ==

== ENCOUNTER 2022-10-08 09:20 | Outpatient (CLI) | payer MEDICARE, SELFPAY ==
--- NOTE | 2022-10-08 09:22 | XR_ITS ---
WS: [id number] Right foot, 2 views, 10/08/2022 Clinical Data: Ulcer of Great toe, concern for osteomyelitis Comparison: None. Findings: There is osteoarthritic change of the right great toe IP joint and also the DIP and PIP joints of the second through fifth toes. There is soft tissue swelling surrounding the right great toe. No definit e signs of osteomyelitis are seen. There is a plantar fascial calcification. There is a small plantar spur. There is medial subcutaneous calcification adjacent to the distal right tibia. No fractures or dislocations are noted. XR/XR foot RT 2V [id number] Impression: 1. Osteoarthritic change of the joints of the toes with soft tissue swelling of the right great toe. 2. No bone destruction, erosion or evidence of osteomyelitis. 3. Subcutaneous calcifications and ossifications in the plantar fascia and in t he medial subcutaneous tissue of the distal right leg.
== END 2022-10-08 09:21 | disposition home or self-care (01) ==
PROVIDERS: PCP Family Medicine; Visit Provider Family Medicine
DX: E11.621 Type 2 diabetes mellitus with foot ulcer (principal); L97.519 Non-pressure chronic ulcer of other part of right foot with unspecified severity
CPT/HCPCS: 73620

== ENCOUNTER → 2022-10-10 13:44 | Outpatient (BNVA) | payer MEDICARE, SELFPAY | PROVIDERS: PCP Family Medicine; Visit Provider Nurse Practitioner Family | DX: I96 Gangrene, not elsewhere classified (principal); E11.621 Type 2 diabetes mellitus with foot ulcer; L97.512 Non-pressure chronic ulcer of other part of right foot with fat layer exposed | CPT/HCPCS: 97597 ==

== ENCOUNTER → 2022-10-14 08:03 | Outpatient (BNVA) | payer MEDICARE, SELFPAY | PROVIDERS: PCP Family Medicine; Referring Provider Family Medicine; Visit Provider Specialist | DX: M23.8X2 Other internal derangements of left knee (principal) | CPT/HCPCS: 73560; 73565; 99203 ==

== ENCOUNTER → 2022-10-15 13:54 | Outpatient (BNVA) | payer MEDICARE, SELFPAY | PROVIDERS: PCP Family Medicine; Visit Provider Nurse Practitioner Family | DX: E11.621 Type 2 diabetes mellitus with foot ulcer (principal); L97.512 Non-pressure chronic ulcer of other part of right foot with fat layer exposed | CPT/HCPCS: 97597 ==

== ENCOUNTER → 2022-10-18 10:45 | Outpatient (BNVA) | payer MEDICARE, SELFPAY | PROVIDERS: PCP Family Medicine; Visit Provider Podiatrist Foot & Ankle Surgery | DX: E11.621 Type 2 diabetes mellitus with foot ulcer (principal); L97.512 Non-pressure chronic ulcer of other part of right foot with fat layer exposed; E11.42 Type 2 diabetes mellitus with diabetic polyneuropathy; Z79.4 Long term (current) use of insulin; B35.1 Tinea unguium; G62.9 Polyneuropathy, unspecified; M20.41 Other hammer toe(s) (acquired), right foot; M20.42 Other hammer toe(s) (acquired), left foot | CPT/HCPCS: 11721; 99213 ==

== ENCOUNTER → 2022-10-22 13:46 | Outpatient (BNVA) | payer MEDICARE, SELFPAY | PROVIDERS: PCP Family Medicine; Visit Provider Nurse Practitioner Family | DX: E11.621 Type 2 diabetes mellitus with foot ulcer (principal); L97.512 Non-pressure chronic ulcer of other part of right foot with fat layer exposed | CPT/HCPCS: 97597 ==

== ENCOUNTER → 2022-10-29 10:44 | Outpatient (BNVA) | payer MEDICARE, SELFPAY | PROVIDERS: PCP Family Medicine; Visit Provider Nurse Practitioner Family | DX: I96 Gangrene, not elsewhere classified (principal); E11.621 Type 2 diabetes mellitus with foot ulcer; L97.512 Non-pressure chronic ulcer of other part of right foot with fat layer exposed | CPT/HCPCS: 97597 ==

== ENCOUNTER → 2022-11-05 10:34 | Outpatient (BNVA) | payer MEDICARE, SELFPAY | PROVIDERS: PCP Family Medicine; Visit Provider Nurse Practitioner Family | DX: E11.621 Type 2 diabetes mellitus with foot ulcer (principal); L97.522 Non-pressure chronic ulcer of other part of left foot with fat layer exposed | CPT/HCPCS: 97597 ==

== ENCOUNTER → 2022-11-12 10:33 | Outpatient (BNVA) | payer MEDICARE, SELFPAY | PROVIDERS: PCP Family Medicine; Visit Provider Nurse Practitioner Family | DX: E11.621 Type 2 diabetes mellitus with foot ulcer (principal); I96 Gangrene, not elsewhere classified; L97.522 Non-pressure chronic ulcer of other part of left foot with fat layer exposed | CPT/HCPCS: 97597; A6210 ==

== ENCOUNTER → 2022-11-19 13:41 | Outpatient (BNVA) | payer MEDICARE, SELFPAY | PROVIDERS: PCP Family Medicine; Visit Provider Nurse Practitioner Family | DX: I96 Gangrene, not elsewhere classified (principal); E11.621 Type 2 diabetes mellitus with foot ulcer; L97.511 Non-pressure chronic ulcer of other part of right foot limited to breakdown of skin; E11.622 Type 2 diabetes mellitus with other skin ulcer; L97.811 Non-pressure chronic ulcer of other part of right lower leg limited to breakdown of skin; L97.821 Non-pressure chronic ulcer of other part of left lower leg limited to breakdown of skin | CPT/HCPCS: 97597; A6212 ==

== ENCOUNTER → 2022-11-26 12:57 | Outpatient (BNVA) | payer MEDICARE, SELFPAY | PROVIDERS: PCP Family Medicine; Visit Provider Nurse Practitioner Family | DX: I96 Gangrene, not elsewhere classified (principal); E11.621 Type 2 diabetes mellitus with foot ulcer; L97.511 Non-pressure chronic ulcer of other part of right foot limited to breakdown of skin; E11.622 Type 2 diabetes mellitus with other skin ulcer; L97.811 Non-pressure chronic ulcer of other part of right lower leg limited to breakdown of skin; L97.821 Non-pressure chronic ulcer of other part of left lower leg limited to breakdown of skin | CPT/HCPCS: 97597; A6210; A6212 ==

== ENCOUNTER → 2022-12-03 13:02 | Outpatient (BNVA) | payer MEDICARE, SELFPAY | PROVIDERS: PCP Family Medicine; Visit Provider Nurse Practitioner Family | DX: E11.52 Type 2 diabetes mellitus with diabetic peripheral angiopathy with gangrene (principal); L97.812 Non-pressure chronic ulcer of other part of right lower leg with fat layer exposed; L97.512 Non-pressure chronic ulcer of other part of right foot with fat layer exposed; Z09 Encounter for follow-up examination after completed treatment for conditions other than malignant neoplasm | CPT/HCPCS: 87070; 87077; 87186; 97597; 97598 ==

== ENCOUNTER → 2022-12-10 12:55 | Outpatient (BNVA) | payer MEDICARE, SELFPAY | PROVIDERS: PCP Family Medicine; Visit Provider Nurse Practitioner Family | DX: Z09 Encounter for follow-up examination after completed treatment for conditions other than malignant neoplasm (principal) | CPT/HCPCS: 99212; A6212 ==

== ENCOUNTER → 2023-01-01 13:45 | Outpatient (BNVA) | payer MEDICARE, SELFPAY | PROVIDERS: PCP Family Medicine; Visit Provider Internal Medicine Cardiovascular Disease | DX: I50.20 Unspecified systolic (congestive) heart failure (principal); I48.91 Unspecified atrial fibrillation; E11.9 Type 2 diabetes mellitus without complications; Z79.4 Long term (current) use of insulin; Z79.01 Long term (current) use of anticoagulants; R60.9 Edema, unspecified | CPT/HCPCS: 99214 ==

== ENCOUNTER → 2023-01-06 08:55 | Outpatient (BNVA) | payer MEDICARE, SELFPAY | PROVIDERS: PCP Family Medicine; Visit Provider Podiatrist Foot & Ankle Surgery | DX: E11.621 Type 2 diabetes mellitus with foot ulcer (principal); L97.512 Non-pressure chronic ulcer of other part of right foot with fat layer exposed; E11.42 Type 2 diabetes mellitus with diabetic polyneuropathy; B35.1 Tinea unguium; Z79.4 Long term (current) use of insulin; G62.9 Polyneuropathy, unspecified; M20.41 Other hammer toe(s) (acquired), right foot; M20.42 Other hammer toe(s) (acquired), left foot | CPT/HCPCS: 11056; 11721 ==

== ENCOUNTER → 2023-01-07 09:19 | Outpatient (BNVA) | payer MEDICARE, SELFPAY | PROVIDERS: PCP Family Medicine; Visit Provider Family Medicine | DX: E11.621 Type 2 diabetes mellitus with foot ulcer (principal); E11.65 Type 2 diabetes mellitus with hyperglycemia; E11.622 Type 2 diabetes mellitus with other skin ulcer; R60.9 Edema, unspecified; L97.519 Non-pressure chronic ulcer of other part of right foot with unspecified severity; L97.909 Non-pressure chronic ulcer of unspecified part of unspecified lower leg with unspecified severity; T50.1X5A Adverse effect of loop [high-ceiling] diuretics, initial encounter; Z79.4 Long term (current) use of insulin | CPT/HCPCS: 80048; 83036 ==

== ENCOUNTER → 2023-03-14 09:08 | Outpatient (BNVA) | payer MEDICARE, SELFPAY | PROVIDERS: PCP Family Medicine; Visit Provider Podiatrist Foot & Ankle Surgery | DX: E11.8 Type 2 diabetes mellitus with unspecified complications (principal); Z79.4 Long term (current) use of insulin; E11.621 Type 2 diabetes mellitus with foot ulcer; G62.9 Polyneuropathy, unspecified; B35.1 Tinea unguium; M20.41 Other hammer toe(s) (acquired), right foot; M20.42 Other hammer toe(s) (acquired), left foot; L97.512 Non-pressure chronic ulcer of other part of right foot with fat layer exposed | CPT/HCPCS: 11721 ==

== ENCOUNTER → 2023-04-08 09:23 | Outpatient (BNVA) | payer MEDICARE, SELFPAY | PROVIDERS: PCP Family Medicine; Visit Provider Family Medicine | DX: I89.0 Lymphedema, not elsewhere classified (principal); I50.20 Unspecified systolic (congestive) heart failure; Z79.4 Long term (current) use of insulin; I48.91 Unspecified atrial fibrillation; E11.622 Type 2 diabetes mellitus with other skin ulcer; L97.909 Non-pressure chronic ulcer of unspecified part of unspecified lower leg with unspecified severity; E83.42 Hypomagnesemia | CPT/HCPCS: 80048; 80061; 83036; 83735 ==

== ENCOUNTER → 2023-06-09 07:49 | Outpatient (BNVA) | payer MEDICARE, SELFPAY | PROVIDERS: PCP Family Medicine; Visit Provider Podiatrist Foot & Ankle Surgery | DX: E11.42 Type 2 diabetes mellitus with diabetic polyneuropathy (principal); B35.1 Tinea unguium; Z79.4 Long term (current) use of insulin; E11.621 Type 2 diabetes mellitus with foot ulcer; L97.519 Non-pressure chronic ulcer of other part of right foot with unspecified severity; G62.9 Polyneuropathy, unspecified; I87.8 Other specified disorders of veins | CPT/HCPCS: 11056; 11721; 99213 ==

== ENCOUNTER → 2023-07-02 11:58 | Outpatient (BNVA) | payer MEDICARE, SELFPAY | PROVIDERS: PCP Family Medicine; Visit Provider Family Medicine | DX: E11.9 Type 2 diabetes mellitus without complications (principal); Z79.4 Long term (current) use of insulin; I48.91 Unspecified atrial fibrillation; E11.622 Type 2 diabetes mellitus with other skin ulcer; L97.909 Non-pressure chronic ulcer of unspecified part of unspecified lower leg with unspecified severity; L03.115 Cellulitis of right lower limb; E55.9 Vitamin D deficiency, unspecified; R07.89 Other chest pain; Z79.899 Other long term (current) drug therapy | CPT/HCPCS: 80053; 80061; 82043; 82306; 82607; 83036; 83525; 84439; 84443; 84550; 84681; 85025; 86140 ==

== ENCOUNTER → 2023-07-24 14:27 | Outpatient (BNVA) | payer MEDICARE, SELFPAY | PROVIDERS: PCP Family Medicine; Referring Provider Family Medicine; Visit Provider Podiatrist Foot & Ankle Surgery | DX: I87.8 Other specified disorders of veins (principal); B35.1 Tinea unguium; E11.42 Type 2 diabetes mellitus with diabetic polyneuropathy; Z79.4 Long term (current) use of insulin; E11.621 Type 2 diabetes mellitus with foot ulcer; L97.519 Non-pressure chronic ulcer of other part of right foot with unspecified severity; G62.9 Polyneuropathy, unspecified; L97.811 Non-pressure chronic ulcer of other part of right lower leg limited to breakdown of skin; L97.812 Non-pressure chronic ulcer of other part of right lower leg with fat layer exposed | CPT/HCPCS: 29580; 99213 ==

== ENCOUNTER → 2023-07-31 08:55 | Outpatient (BNVA) | payer MEDICARE, SELFPAY | PROVIDERS: PCP Family Medicine; Visit Provider Podiatrist Foot & Ankle Surgery | DX: I87.8 Other specified disorders of veins (principal); B35.1 Tinea unguium; Z79.4 Long term (current) use of insulin; E11.621 Type 2 diabetes mellitus with foot ulcer; L97.519 Non-pressure chronic ulcer of other part of right foot with unspecified severity; G62.9 Polyneuropathy, unspecified; M79.673 Pain in unspecified foot; E11.42 Type 2 diabetes mellitus with diabetic polyneuropathy | CPT/HCPCS: 99213 ==

== ENCOUNTER → 2023-08-25 08:11 | Outpatient (BNVA) | payer MEDICARE, SELFPAY | PROVIDERS: PCP Family Medicine; Visit Provider Podiatrist Foot & Ankle Surgery | DX: B35.1 Tinea unguium (principal); Z79.4 Long term (current) use of insulin; G62.9 Polyneuropathy, unspecified; E11.42 Type 2 diabetes mellitus with diabetic polyneuropathy; L84 Corns and callosities | CPT/HCPCS: 11056; 11721 ==

== ENCOUNTER → 2023-08-26 10:20 | Outpatient (BNVA) | payer MEDICARE, SELFPAY | PROVIDERS: PCP Family Medicine; Visit Provider Nurse Practitioner Family | DX: I48.0 Paroxysmal atrial fibrillation (principal); I42.0 Dilated cardiomyopathy; Z79.01 Long term (current) use of anticoagulants | CPT/HCPCS: 99214 ==

== ENCOUNTER 2023-09-02 06:04 | Outpatient (CLI) | payer MEDICARE, SELFPAY ==
--- NOTE | 2023-09-02 06:30 | USCV_ITS ---
Juan Covarrubias Age: 63 Gender: M : 1960 Exam Date: 09/02/2023 06:23 Ordering Phys: Ya Lobo Technologist: Exam Location: [facility] – [place] Indication: afib BP: 134 / 69 HR: Rhythm: Sinus Technical Quality: Adequate MEASUREMENTS (Male / Female) Normal Values 2D ECHO LV Diastolic Diameter PLAX 4.7 cm 4.2 - 5.9 / 3.9 - 5.3 cm IVS Diastolic Thickness 1.5 cm 0.6 - 1.0 / 0.6 - 0.9 cm IVS Systolic Thickness 1.7 cm LVPW Diastolic Thickness 1.5 cm 0.6 - 1.0 / 0.6 - 0.9 cm LVPW Systolic Thickness 1.4 cm LVOT Diameter 2.0 cm LV Ejection Fraction 2D Teich 65.8 % LV Ejection Fraction MOD 2C 59.9 % LV Ejection Fraction 2C AL 60.5 % LA Diameter 3.6 cm RA Systolic Volume 4C AL 95.2 ml RA Systolic Volume 4C MOD 91.2 ml Aorta at Sinotubular Diameter 3.7 cm IVC Diameter 2.0 cm M-MODE LA Ao Ratio MM 0.9 AV Cusp Separation MM 2.6 cm DOPPLER LVOT Peak Velocity 76.0 cm/s AV Area Cont Eq vti 1.8 cm squared AV Area Cont Eq pk 1.9 cm squared MV Peak Velocity 163.0 cm/s MV Area PHT 6.5 cm squared Mitral E to A Ratio 3.0 TR Peak Velocity 281.0 cm/s TR Peak Gradient 31.6 mmHg TR Mean Velocity 217.0 cm/s TR Mean Gradient 20.1 mmHg TR Velocity Time Integral 77.5 cm TV Peak E Velocity 3.0 cm/s Right Atrial Pressure 3.0 mmHg Pulmonary Artery Systolic Pressu 34.6 mmHg PV Peak Velocity 107.0 cm/s FINDINGS Left Ventricle Left ventricle is normal size. LV systolic function is normal with EF of 55 to 60%. No regional wall motion abnormalities are seen. Right Ventricle Normal in size and function Right Atrium Dilated. Left Atrium Severely dilated. Mitral Valve Structurally normal mitral valve. Mild mitral regurgitation. Aortic Valve Structurally normal aortic valve. Tricuspid Valve Mild tricuspid regurgitation. RVSP is 35 to 40 mmHg. This is consistent with mild pulmonary hypertension Pulmonic Valve Not well visualized Pericardium Normal Aorta Ascending aorta is dilated with diameter of 3.84 cm. IVC Appears to be normal CONCLUSIONS LV systolic function is normal with EF of 55 to 60%. Biatrial enlargement Mild mitral regurgitation Mild tricuspid regurgitation Mild pulmonary hypertension Ascending aorta is dilated with diameter of 3.84 cm. Compared to prior echocardiogram from 2020, patient now has mildly dilated ascending aorta Roman Cason MD (Electronically Signed) Final Date: 14 September 2023 13:18 S
== END 2023-09-02 06:05 | disposition home or self-care (01) ==
LOC: RAD 06:04
PROVIDERS: PCP Family Medicine; Visit Provider Nurse Practitioner Family
DX: I42.0 Dilated cardiomyopathy (principal); I48.91 Unspecified atrial fibrillation; I08.8 Other rheumatic multiple valve diseases; I77.810 Thoracic aortic ectasia
CPT/HCPCS: 93306

== ENCOUNTER → 2023-10-01 08:36 | Outpatient (BNVA) | payer MEDICARE, SELFPAY | PROVIDERS: PCP Family Medicine; Visit Provider Family Medicine | DX: E11.9 Type 2 diabetes mellitus without complications (principal); E11.622 Type 2 diabetes mellitus with other skin ulcer; L97.909 Non-pressure chronic ulcer of unspecified part of unspecified lower leg with unspecified severity; Z79.4 Long term (current) use of insulin; E11.65 Type 2 diabetes mellitus with hyperglycemia | CPT/HCPCS: 80048; 82150; 83036; 83690 ==

== ENCOUNTER → 2023-10-27 08:21 | Outpatient (BNVA) | payer MEDICARE, SELFPAY | PROVIDERS: PCP Family Medicine; Visit Provider Podiatrist Foot & Ankle Surgery | DX: B35.1 Tinea unguium (principal); Z79.4 Long term (current) use of insulin; G62.9 Polyneuropathy, unspecified; E11.42 Type 2 diabetes mellitus with diabetic polyneuropathy | CPT/HCPCS: 11721 ==

== ENCOUNTER → 2024-01-02 08:37 | Outpatient (BNVA) | payer MEDICARE, SELFPAY | PROVIDERS: PCP Family Medicine; Visit Provider Podiatrist Foot & Ankle Surgery | DX: B35.1 Tinea unguium (principal); Z79.4 Long term (current) use of insulin; G62.9 Polyneuropathy, unspecified; E11.42 Type 2 diabetes mellitus with diabetic polyneuropathy | CPT/HCPCS: 11721 ==

== ENCOUNTER → 2024-01-28 09:23 | Outpatient (BNVA) | payer MEDICARE, SELFPAY | PROVIDERS: PCP Family Medicine; Visit Provider Family Medicine | DX: Z12.5 Encounter for screening for malignant neoplasm of prostate (principal); Z79.4 Long term (current) use of insulin; E11.9 Type 2 diabetes mellitus without complications; E11.622 Type 2 diabetes mellitus with other skin ulcer; E55.9 Vitamin D deficiency, unspecified; E29.1 Testicular hypofunction; I73.9 Peripheral vascular disease, unspecified; L08.9 Local infection of the skin and subcutaneous tissue, unspecified; L72.3 Sebaceous cyst; L97.909 Non-pressure chronic ulcer of unspecified part of unspecified lower leg with unspecified severity; R79.89 Other specified abnormal findings of blood chemistry; R53.83 Other fatigue | CPT/HCPCS: 80053; 80061; 82043; 82306; 82607; 83036; 84403; 84443; G0103 ==

== ENCOUNTER → 2024-02-04 12:30 | Outpatient (BNVA) | payer MEDICARE, SELFPAY | PROVIDERS: PCP Family Medicine; Visit Provider Family Medicine | DX: D48.9 Neoplasm of uncertain behavior, unspecified (principal) | CPT/HCPCS: 88305 ==

== ENCOUNTER → 2024-02-25 09:52 | Outpatient (BNVA) | payer MEDICARE, SELFPAY | PROVIDERS: PCP Family Medicine; Visit Provider Internal Medicine Cardiovascular Disease | DX: I48.91 Unspecified atrial fibrillation (principal); E11.9 Type 2 diabetes mellitus without complications; Z79.4 Long term (current) use of insulin; I42.0 Dilated cardiomyopathy; I27.20 Pulmonary hypertension, unspecified | CPT/HCPCS: 99214 ==

== ENCOUNTER → 2024-03-08 08:31 | Outpatient (BNVA) | payer MEDICARE, SELFPAY | PROVIDERS: PCP Family Medicine; Visit Provider Podiatrist Foot & Ankle Surgery | DX: B35.1 Tinea unguium (principal); E11.42 Type 2 diabetes mellitus with diabetic polyneuropathy; Z79.4 Long term (current) use of insulin; G62.9 Polyneuropathy, unspecified | CPT/HCPCS: 11721 ==

== ENCOUNTER → 2024-05-12 07:53 | Outpatient (BNVA) | payer MEDICARE, SELFPAY | PROVIDERS: PCP Family Medicine; Visit Provider Podiatrist Foot & Ankle Surgery | DX: E11.621 Type 2 diabetes mellitus with foot ulcer (principal); L97.522 Non-pressure chronic ulcer of other part of left foot with fat layer exposed; L97.512 Non-pressure chronic ulcer of other part of right foot with fat layer exposed; E11.42 Type 2 diabetes mellitus with diabetic polyneuropathy; B35.1 Tinea unguium; Z79.4 Long term (current) use of insulin; G62.9 Polyneuropathy, unspecified | CPT/HCPCS: 11042; 11721; 99213 ==

== ENCOUNTER → 2024-05-17 07:54 | Outpatient (BNVA) | payer MEDICARE, SELFPAY | PROVIDERS: PCP Family Medicine; Visit Provider Thoracic Surgery (Cardiothoracic Vascular Surgery) | DX: I96 Gangrene, not elsewhere classified (principal); L89.892 Pressure ulcer of other site, stage 2 | CPT/HCPCS: 11042; 99213; A6210 ==

== ENCOUNTER → 2024-05-24 08:46 | Outpatient (BNVA) | payer MEDICARE, SELFPAY | PROVIDERS: PCP Family Medicine; Visit Provider Thoracic Surgery (Cardiothoracic Vascular Surgery) | DX: E11.52 Type 2 diabetes mellitus with diabetic peripheral angiopathy with gangrene (principal); E11.621 Type 2 diabetes mellitus with foot ulcer; L97.521 Non-pressure chronic ulcer of other part of left foot limited to breakdown of skin | CPT/HCPCS: 97597 ==

== ENCOUNTER → 2024-05-31 08:38 | Outpatient (BNVA) | payer MEDICARE, SELFPAY | PROVIDERS: PCP Family Medicine; Visit Provider Thoracic Surgery (Cardiothoracic Vascular Surgery) | DX: Z09 Encounter for follow-up examination after completed treatment for conditions other than malignant neoplasm (principal); Z87.2 Personal history of diseases of the skin and subcutaneous tissue | CPT/HCPCS: 99212 ==

== ENCOUNTER → 2024-07-13 08:45 | Outpatient (BNVA) | payer MEDICARE, SELFPAY | PROVIDERS: PCP Family Medicine; Visit Provider Podiatrist Foot & Ankle Surgery | DX: E11.69 Type 2 diabetes mellitus with other specified complication (principal); B35.1 Tinea unguium; L84 Corns and callosities; E11.621 Type 2 diabetes mellitus with foot ulcer; Z79.4 Long term (current) use of insulin; G62.9 Polyneuropathy, unspecified; M79.673 Pain in unspecified foot; L97.522 Non-pressure chronic ulcer of other part of left foot with fat layer exposed | CPT/HCPCS: 11043; 11056; 11721 ==

== ENCOUNTER → 2024-08-03 08:25 | Outpatient (BNVA) | payer MEDICARE, SELFPAY | PROVIDERS: PCP Family Medicine; Visit Provider Podiatrist Foot & Ankle Surgery | DX: E11.621 Type 2 diabetes mellitus with foot ulcer (principal); L97.522 Non-pressure chronic ulcer of other part of left foot with fat layer exposed; B35.1 Tinea unguium; Z79.4 Long term (current) use of insulin; G62.9 Polyneuropathy, unspecified | CPT/HCPCS: 11042 ==

== ENCOUNTER → 2024-08-17 08:29 | Outpatient (BNVA) | payer MEDICARE, SELFPAY | PROVIDERS: PCP Family Medicine; Visit Provider Podiatrist Foot & Ankle Surgery | DX: E11.621 Type 2 diabetes mellitus with foot ulcer (principal); L97.522 Non-pressure chronic ulcer of other part of left foot with fat layer exposed; B35.1 Tinea unguium; Z79.4 Long term (current) use of insulin; G62.9 Polyneuropathy, unspecified; M79.673 Pain in unspecified foot; E11.42 Type 2 diabetes mellitus with diabetic polyneuropathy | CPT/HCPCS: 99213 ==

== ENCOUNTER 2024-08-24 09:24 | Outpatient (CLI) | payer MEDICARE, SELFPAY ==
[2024-08-24 09:58] LABS: Basophils # 0.1 10^3/uL (0.0-0.1); Basophils % 1.2 %; Eosinophils # 0.1 10^3/uL (0.0-0.8); Eosinophils % 1.3 %; Hematocrit 48.9 % (37-53); Lymphocytes # 2.5 10^3/uL (0.8-4.8); Mean Corpuscular HGB Conc 30.5 g/dL (30-55); Mean Corpuscular Hemoglobin 26.5 pg (27-33); Mean Corpuscular Volume 86.9 fl (82-101); Mean Platelet Volume 11.3 fL (7.4-10.4); Monocytes # 0.3 10^3/uL (0.2-0.9); Monocytes % 5.2 %; Neutrophils # 2.35 10^3/uL (1.8-7.7); Neutrophils % 45.1 %; Nucleated Red Blood Cells % 0 %; Platelet Count 225 10^3/cmm (157-399); Red Blood Count 5.63 10^6/uL (3.85-5.65); Red Cell Distribution Width 15.8 % (12.1-15.1); White Blood Count 5.21 10^3/uL (3.29-11.43)
[2024-08-24 10:15] LABS: Estmated Average Glucose 140; Hemoglobin A1C 6.5 % (4.0-6.0)
[2024-08-24 10:31] LABS: 25 Hydroxy Vitamin D 42 ng/mL (30-100); Alanine Aminotransferase 21 U/L (0-41); Albumin Level 4.1 g/dL (3.5-5.2); Alkaline Phosphatase 63 U/L (40-130); Anion Gap 13.5 (5-19); Aspartate Amino Transferase 21 U/L (0-40); Blood Urea Nitrogen 31 mg/dL (8-23); Calcium 9.1 mg/dL (8.5-10.5); Carbon Dioxide 25 mmol/L (22-29); Chloride 105 mmol/L (98-107); Chol HDL Ratio 2.72 mg/dL (1.0-5.00); Cholesterol 163 mg/dL (0-200); Globulin 2.5 g/dL (1.3-4.6); Glomerular Filtration Rate 60.8 mL/min (90-130); Glucose 157 mg/dL (65-115); HDL Cholesterol 60 mg/dL (60-100); LDL Cholesterol Calculated 84 mg/dL (50-129); Osmolality Calculated 298 mOsm/kg (285-295); Potassium 4.5 mmol/L (3.5-5.1); Sodium 139 mmol/L (136-145); Thyroid Stimulating Hormone 1.93 uIU/mL (0.27-4.20); Total Bilirubin 0.8 mg/dL (0.15-1.2); Total Protein 6.6 g/dL (6.6-8.7); Triglycerides 97 mg/dL (0-150); Vitamin B12 362 pg/mL (232-1245)
== END 2024-08-24 09:25 | disposition home or self-care (01) ==
LOC: LAB 09:25
PROVIDERS: PCP Family Medicine; Visit Provider Family Medicine
DX: E55.9 Vitamin D deficiency, unspecified (principal); E53.8 Deficiency of other specified B group vitamins; E11.65 Type 2 diabetes mellitus with hyperglycemia; E11.9 Type 2 diabetes mellitus without complications; M54.50 Low back pain, unspecified; R79.89 Other specified abnormal findings of blood chemistry; I48.91 Unspecified atrial fibrillation; Z79.4 Long term (current) use of insulin; I42.8 Other cardiomyopathies; I27.20 Pulmonary hypertension, unspecified
CPT/HCPCS: 36415; 80053; 80061; 82306; 82607; 83036; 84443; 85025; 99213

== ENCOUNTER → 2024-09-14 08:13 | Outpatient (BNVA) | payer MEDICARE, SELFPAY | PROVIDERS: PCP Family Medicine; Visit Provider Podiatrist Foot & Ankle Surgery | DX: E11.8 Type 2 diabetes mellitus with unspecified complications (principal); B35.1 Tinea unguium; Z79.4 Long term (current) use of insulin; G62.9 Polyneuropathy, unspecified; E11.69 Type 2 diabetes mellitus with other specified complication | CPT/HCPCS: 99213 ==

== ENCOUNTER → 2024-11-16 08:28 | Outpatient (BNVA) | payer MEDICARE, SELFPAY | PROVIDERS: PCP Family Medicine; Visit Provider Podiatrist Foot & Ankle Surgery | DX: E11.42 Type 2 diabetes mellitus with diabetic polyneuropathy (principal); B35.1 Tinea unguium; Z79.4 Long term (current) use of insulin; G62.9 Polyneuropathy, unspecified; E11.621 Type 2 diabetes mellitus with foot ulcer; L03.031 Cellulitis of right toe; L97.512 Non-pressure chronic ulcer of other part of right foot with fat layer exposed | CPT/HCPCS: 11721; 99214 ==

== ENCOUNTER → 2024-12-07 06:40 | Outpatient (BNVA) | payer MEDICARE, SELFPAY | PROVIDERS: PCP Family Medicine; Visit Provider Podiatrist Foot & Ankle Surgery | DX: E11.621 Type 2 diabetes mellitus with foot ulcer (principal); B35.1 Tinea unguium; E11.9 Type 2 diabetes mellitus without complications; Z79.4 Long term (current) use of insulin; G62.9 Polyneuropathy, unspecified; L97.518 Non-pressure chronic ulcer of other part of right foot with other specified severity | CPT/HCPCS: 99213 ==

== ENCOUNTER → 2025-01-18 08:22 | Outpatient (BNVA) | payer MEDICARE, SELFPAY | PROVIDERS: PCP Family Medicine; Visit Provider Podiatrist Foot & Ankle Surgery | DX: E11.42 Type 2 diabetes mellitus with diabetic polyneuropathy (principal); B35.1 Tinea unguium; Z79.4 Long term (current) use of insulin; G62.9 Polyneuropathy, unspecified | CPT/HCPCS: 11055; 11721 ==

== ENCOUNTER → 2025-03-09 11:32 | Outpatient (BNVA) | payer MEDICARE, SELFPAY | PROVIDERS: PCP Family Medicine; Visit Provider Internal Medicine Cardiovascular Disease | DX: I48.20 Chronic atrial fibrillation, unspecified (principal); I50.30 Unspecified diastolic (congestive) heart failure; I27.20 Pulmonary hypertension, unspecified; E11.9 Type 2 diabetes mellitus without complications | CPT/HCPCS: 99214 ==

== ENCOUNTER → 2025-03-30 07:49 | Outpatient (BNVA) | payer MEDICARE, SELFPAY | PROVIDERS: PCP Family Medicine; Visit Provider Podiatrist Foot & Ankle Surgery | DX: E11.42 Type 2 diabetes mellitus with diabetic polyneuropathy (principal); B35.1 Tinea unguium; L85.1 Acquired keratosis [keratoderma] palmaris et plantaris; Z79.4 Long term (current) use of insulin; G62.9 Polyneuropathy, unspecified | CPT/HCPCS: 11055; 11721 ==

== ENCOUNTER → 2025-04-27 09:04 | Outpatient (BNVA) | payer MEDICARE, SELFPAY | PROVIDERS: PCP Family Medicine; Visit Provider Family Medicine | DX: R79.89 Other specified abnormal findings of blood chemistry (principal); M10.9 Gout, unspecified; I48.0 Paroxysmal atrial fibrillation; E11.65 Type 2 diabetes mellitus with hyperglycemia; E11.42 Type 2 diabetes mellitus with diabetic polyneuropathy; R53.82 Chronic fatigue, unspecified; E29.1 Testicular hypofunction; E55.9 Vitamin D deficiency, unspecified | CPT/HCPCS: 80053; 80061; 82043; 82306; 82607; 83036; 84403; 84439; 84443; 84550; 85025; G0103 ==

== ENCOUNTER → 2025-06-02 07:11 | Outpatient (BNVA) | payer MEDICARE, SELFPAY | PROVIDERS: PCP Family Medicine; Visit Provider Podiatrist Foot & Ankle Surgery | DX: E11.8 Type 2 diabetes mellitus with unspecified complications (principal); B35.1 Tinea unguium; L84 Corns and callosities; Z79.4 Long term (current) use of insulin; G62.9 Polyneuropathy, unspecified; E11.42 Type 2 diabetes mellitus with diabetic polyneuropathy | CPT/HCPCS: 11056; 11721 ==